=== PATIENT | male | born 1940 | race Caucasian/White ===

== ENCOUNTER 2020-09-28 14:17 | Outpatient (CLI) | payer MEDICARE, MEDICAID, SELFPAY ==
--- NOTE | ~2020-09-28 | CT_ITS ---
EXAMINATION: CT brain wo con DATE: 09/28/2020 14:58 INDICATION: Cerebrovascular accident follow-up TECHNIQUE: Computed tomography (CT) of the head was performed without intravenous contrast. The mA wa s adjusted according to patient size. Iterative reconstruction technique was employed. Exam dose: 60 5.33 mGy-cm total exam DLP. COMPARISON: 12/13/2018 CT brain FINDINGS: There is very prominent calcified cerebral atherosclerosis including heavily calcified bila teral vertebral arteries, basilar artery calcification and prominent carotid siphon and supraclinoid internal carotid artery calcifications. Large chronic right occipital cerebrovascular accident. There are bilateral chronic thalamic and basal ganglia lacunar infarcts. There is nonspecific promine nt patchy diminished attenuation of the subcortical and periventricular cerebral white matter, likely due to chronic small vessel ischemic changes. No intracranial mass lesion or hemorrhage or recent cerebrovascular accident is detected. There is no midline shift or mass effect. No subdural or epidural hematoma. There is central and cortical cerebral and cerebellar atrophy. No fracture or bone destruction of the cranial vault. Included paranasal sinuses and mastoid air cells are normally developed and aerated. IMPRESSION: Very prominent cerebral atherosclerosis and multiple bilateral chronic lacunar infarcts of the thalami/basal ganglia Reviewed, dictated and finalized at [facility]. Reviewed, dictated and finalized at location B. N BANDER IMPRESSION: Very prominent cerebral atherosclerosis and multiple bilateral chr onic lacunar infarcts of the thalami/basal ganglia
== END 2020-09-28 14:18 | disposition home or self-care (01) ==
PROVIDERS: PCP Family Medicine; Visit Provider Family Medicine
DX: I63.9 Cerebral infarction, unspecified (principal)
CPT/HCPCS: 70450

== ENCOUNTER 2021-01-21 05:03 | Emergency (ER) | payer MEDICARE, MEDICAID, SELFPAY ==
--- NOTE | ~2021-01-21 | CT_ITS ---
EXAMINATION: CT brain wo con EXAM DATE: 01/21/2021 06:02 INDICATION: Fall, head injury. TECHNIQUE: Spiral CT of the head was performed without contrast. Axial, coronal and sagittal images were reviewed. The dose-length product (DLP) for this examination was 605.33 mGy-cm. The exposure w as tailored according to patient size, and iterative reconstruction (ASIR) was used as additional dos e reduction technique. Comparison is made to prior examination from 09/28/2020. FINDINGS: There is moderate-sized old right occipital lobe infarction. There is no acute intraparench ymal hemorrhage. No evidence of intraparenchymal brain mass lesion. No evidence of acute infarction . Please note that initial head CT has limited sensitivity for small or acute infarctions. There is moderate to severe periventricular and subcortical hypodensity, nonspecific but probably related to s mall vessel ischemic disease. There is moderate prominence of the sulci and ventricles related to c erebral atrophy. There is extensive intracranial carotid arteriosclerosis. There are no extra-axia l collections. There is no mass effect or midline shift. Patient has had bilateral ocular lens surg lawrence. Small right frontal scalp contusion and probably laceration. The visualized sinuses and mastoid air cells are well aerated. IMPRESSION: 1. No acute intracranial findings. 2. Chronic age related findings. 3. Moderate size old right occipital lobe infarction. Reviewed, dictated and finalized at location A.
--- NOTE | ~2021-01-21 | CT_ITS ---
EXAMINATION: CT cervical spine wo [facility] EXAM DATE: 01/21/2021 06:02 INDICATION: Fall, head injury. TECHNIQUE: Spiral CT of the cervical spine was performed without contrast. Axial images were reviewe d. Coronal and sagittal reformatted images were also reviewed. The dose-length product (DLP) for thi s examination was 242.31 mGy-cm. The exposure was tailored according to patient size (auto mA exposu re control), and iterative reconstruction (ASIR) was used as additional dose reduction technique. Com parison is made to prior examination from 12/13/2018. FINDINGS: There is no evidence of acute cervical fracture. The odontoid process is intact. Pre-dens space is normal. Prevertebral soft tissue is normal. There are no soft tissue abnormalities identi fied. There is no disc space widening or traumatic vertebral body subluxation suspected. There is 2 mm anterolisthesis C7 on T1, was present on prior study. Moderate to severe loss of the C5-6 disc he ight. Overall moderate cervical arthropathy. A detailed level by level evaluation of spondylosis can be added as addendum if requested. IMPRESSION: 1. No acute cervical fracture. Reviewed, dictated and finalized at location A.
--- NOTE | ~2021-01-21 | XR_ITS ---
EXAMINATION: XR elbow LT min 3V EXAM DATE: 01/21/2021 06:22 INDICATION: Initial encounter following injury, with pain of the left elbow. TECHNIQUE: Left elbow frontal, lateral with flexion, and oblique projections obtained and reviewed. E xam limited from patient positioning. There is no prior study for comparison. FINDINGS: Left elbow anterior humeral line intact. There is mild primary osteoarthritis. No acute fractures or dislocations. Brachial arterial sclerosis and tortuosity. Can't evaluate for joint effus ion without true lateral projection. IMPRESSION: 1. No acute left elbow findings. 2. Mild to moderate osteoarthritis. Reviewed, dictated and finalized at location A.
--- NOTE | ~2021-01-21 | XR_ITS ---
EXAMINATION: XR chest 1V EXAM DATE: 01/21/2021 06:22 INDICATION: Fall. TECHNIQUE: Portable AP frontal chest x-ray was obtained. Comparison is made to prior examination from 09/06/2015. FINDINGS: Patchy bibasilar atelectasis or pneumonia. There are no pleural effusions. The cardiomedia stinal silhouette is prominent but magnified on this AP technique. There is aortic arteriosclerosis. There are bony degenerative changes. Chronic left hemidiaphragm elevation which could indicate paraly sis. This could be evaluated with a fluoroscopy-guided sniff test if indicated clinically. IMPRESSION: 1. Patchy bibasilar atelectasis or pneumonia. 2. Chronic left hemidiaphragm elevation, possible paralysis. Reviewed, dictated and finalized at location A.
--- NOTE | ~2021-01-21 | XR_ITS ---
EXAMINATION: XR pelvis 1-2V EXAM DATE: 01/21/2021 06:22 INDICATION: Initial encounter following injury, with pain of the pelvis. TECHNIQUE: Pelvis frontal projection(s) obtained and reviewed. There is no prior study for compariso n. FINDINGS: There is moderate symmetric bilateral hip primary osteoarthritis. Moderate amount of scatte red arteriosclerotic disease. There are no acute fractures or dislocations identified. There is no s ubcutaneous gas. There are no radiopaque foreign bodies. IMPRESSION: 1. Pelvic x-ray exam without acute osseous findings. 2. Moderate hip osteoarthritis. Reviewed, dictated and finalized at location A.
[2021-01-21 05:07] VITALS: BP 131/75; PULSE 80; RESP 20; TEMP 36.9; O2SAT 98
--- NOTE | 2021-01-21 05:21 | ED.FALL ---
HPI - Fall General Chief Complaint: Fall Stated Complaint: fall Source: RN notes reviewed History of Present Illness HPI Narrative: Patient presents to emergency department from [facility] for a fall. The patient was found down on the floor in the [facility] patient does not recall specifically how he fell. Per EMS the patient is a Gabriele lift did and is nonambulatory at baseline patient does have a history of dementia. Patient has a laceration over his right eyebrow as well as skin tear over the left elbow patient denies any headache chest pain, shortness of breath abdominal pain nausea vomiting or any other symptoms Related Data Allergies Allergy/AdvReac Type Severity Reaction Status Date / Time No Known Allergies Allergy Verified 01/21/21 05:13 Review of Systems Review of Systems: Narrative: Gen.: Denies fevers or chills Eyes: Denies eye pain or visual change ENT: Denies congestion Respiratory: Denies shortness of breath CV: Denies chest pain GI: Denies abdominal pain nausea, emesis Musculoskeletal: Denies back pain or muscle pain Neuro: Denies numbness, tingling, weakness or focal weakness Skin: See HPI Except as documented, all other systems reviewed and negative [facility] Past Medical History Medical History (Updated 01/21/21 @ 06:55 by Israel Montez DO) CVA (cerebral vascular accident) Dementia Social History Social History Smoking status: Never smoker Alcohol intake: never Gender identity (if verbalized by the patient): Male Exam Narrative: Exam Narrative: APPEARANCE: No acute distress, nontoxic, resting in bed EYES: EOMI, PERRL HEENT: Normocephalic, there is a 3 cm laceration over the right forehead just above the eyebrow that is linear and deep with mild venous bleeding no foreign bodies nares patent or mucosa moist RESPIRATORY: No respiratory distress Clear to auscultation bilaterally with no rhonchi wheezing or rales. CARDIOVASCULAR: Regular rate and rhythm without murmurs rubs or gallops. ABDOMINAL: Soft, nontender, nondistended, no rebound or guarding Back: No midline thoracic or lumbar tenderness to palpation MUSCULOSKELETAl: Moves all extremities. No clubbing, cyanosis or edema. No tenderness of the bilateral upper and lower extremities, moves all extremities without pain NEURO: Awake and alert x2. Following commands, speech normal, no focal deficits SKIN:: Warm, dry. No rashes lesions. Superficial skin tear over the left lateral proximal forearm no bleeding or sign of infection PSYCHIATRIC: Normal affect/mood, Course Course Emergency Course: Reviewed old records and patient with tetanus shot in 2013 Vital Signs Vital signs: Vital Signs Temperature 98.4 F 01/21/21 05:07 Pulse Rate 80 01/21/21 05:07 Respiratory Rate 20 01/21/21 05:07 Blood Pressure 131/75 01/21/21 05:07 Pulse Oximetry 98 01/21/21 05:07 Temperature 98.4 F 01/21/21 05:07 Pulse Rate 80 01/21/21 05:07 Respiratory Rate 20 01/21/21 05:07 Blood Pressure 131/75 01/21/21 05:07 Pulse Oximetry 98 01/21/21 05:07 Procedures Laceration Laceration 1: ====== Skin Level ====== ====== Subcutaneous Layer ====== ====== Muscle Layer ====== ====== Tendon Layer ====== Dressing: Verbal consent was obtained prior to the procedure. The wound was cleaned with Betadine and irrigated with copious amounts of normal saline. Lidocaine 1% with epinephrine was used for anesthesia. Wound was explored is no foreign body seen. The wound was then closed with 4 5-0 nylon in simple interrupted fashion. A sterile dressing was applied following the procedure. Patient tolerated the procedure well MDM - Fall Imaging Data Attestation: I personally reviewed and interpreted this imaging study as follows: My impression: Chest x-ray shows no acute process, Pelvic x-ray shows no acute fracture Elbow x-ray shows no acute fracture Radiologist'
[2021-01-21] MEDS: LIDO 1%/EPINEPHRINE 1:100,000 20 ML VIAL INFILTRATE (06:02)
--- NOTE | 2021-01-21 07:06 | PC.NURSE ---
Report called to [facility]. Netta.
--- NOTE | 2021-01-21 07:07 | PC.NURSE ---
called [facility] to request transport. Accepted and truck is on the way from [place].
[2021-01-21 07:47] VITALS: BP 154/78; PULSE 74; RESP 14; O2SAT 98
== END 2021-01-21 07:52 ==
PROVIDERS: Emergency Provider Emergency Medicine; PCP Family Medicine
DX: S01.111A Laceration without foreign body of right eyelid and periocular area, initial encounter (principal); S51.012A Laceration without foreign body of left elbow, initial encounter; F03.90 Unspecified dementia, unspecified severity, without behavioral disturbance, psychotic disturbance, mood disturbance, and anxiety; Z86.73 Personal history of transient ischemic attack (TIA), and cerebral infarction without residual deficits; R91.8 Other nonspecific abnormal finding of lung field; M19.022 Primary osteoarthritis, left elbow; M16.0 Bilateral primary osteoarthritis of hip; W06.XXXA Fall from bed, initial encounter
CPT/HCPCS: 12013; 70450; 71045; 72125; 72170; 73080; 99284

== ENCOUNTER 2021-03-10 16:37 | Inpatient (IN) | payer MEDICARE, MEDICAID, SELFPAY ==
--- NOTE | ~2021-03-10 | XR_ITS ---
XR chest 1V portable 03/10/2021 17:41 Indication: Fever and rash. History of CVA. Procedure: AP portable chest Comparison: 01/21/2021 Findings: Elevated left diaphragm. Left basilar atelectasis/scarring unchanged. There is atherosclero sis. Right lung clear. No significant effusion or pneumothorax. Impression: 1: Unchanged left basilar atelectasis/scarring. Reviewed, dictated and finalized at location A. Impression: 1: Unchanged left basilar atelectasis/scarring.
--- NOTE | ~2021-03-10 | XR_ITS ---
XR finger 4th LT min 2V 03/10/2021 20:44 INDICATION: Infection fourth finger PROCEDURE: 3 views left fourth finger COMPARISON: No prior studies for comparison. FINDINGS: Fracture, dislocation or subluxation is not identified. Osteopenia. There is mild soft tiss ue swelling overlying the distal phalanx. No foreign bodies are identified. IMPRESSION: 1: NO ACUTE BONE OR JOINT ABNORMALITY IDENTIFIED. Reviewed, dictated and finalized at location A.
[2021-03-10 16:41] VITALS: BP 136/64; PULSE 93; RESP 18; TEMP 36.7; O2SAT 100
[2021-03-10 18:20] LABS: Basophils Percent Auto 0.2 % (0.2-1.2); Eosinophils Absolute Auto 0.8 K/mm3 (0-0.3); Eosinophils Percent Auto 4.8 % (0-4.4); Hematocrit 44.6 % (42.0-52.0); Hemoglobin 14.2 g/dL (14.0-18.0); Immature Granulocyte Absolute 0.16 K/mm3 (0.00-0.031); Lymphocytes Absolute Auto 2.71 K/mm3 (0.9-3.2); Lymphocytes Percent Auto 16.6 % (18.3-44.2); Mean Corpuscular HGB Conc 31.8 g/dl (32-36); Mean Corpuscular Hemoglobin 30.8 pg (26-34); Mean Corpuscular Volume 96.7 fl (80-100); Mean Platelet Volume 10.7 fl (7.4-10.4); Monocytes Percent Auto 5.9 % (2.6-8.5); Neutrophils Absolute Auto 11.7 K/mm3 (1.3-6.7); Neutrophils Percent Auto 71.5 % (45.5-73.1); Platelet Count Result 251 k/mm3 (150-375); Red Blood Count 4.61 M/mm3 (4.6-6.20); Red Cell Distribution Width 15.2 % (11.5-14.5); White Blood Count 16.4 K/mm3 (4.5-10.0)
[2021-03-10 18:34] LABS: Anion Gap 5 mmol/L (8-16); Blood Urea Nitrogen 28 mg/dL (9-20); CRP 2.7 mg/dL (<1.0); Calcium 9.1 mg/dL (8.4-10.2); Carbon Dioxide 26 mmol/L (22-30); Chloride 113 mmol/L (98-107); Estimated CRCL calculation 57 ml/min; Estimated Glomerular Filt Rate > 60; Glucose 85 mg/dL (75-110); Potassium 4.4 mmol/L (3.4-5.0); Sodium 144 mmol/L (137-145)
--- NOTE | 2021-03-10 19:35 | ED.SKABFB ---
HPI - Skin/Abscess/Foreign Bdy General Chief complaint: Skin/Abscess/Foreign Body Stated complaint: RASH X 1 WEEK Time Seen by Provider: 03/10/21 16:50 Source: patient and RN notes reviewed Mode of arrival: ambulatory Limitations: no limitations History of Present Illness HPI narrative: Patient 80-year-old male who presents from intermediate at baseline mentation which is ANO x1 with rash which was noticed today at the intermediate. Unsure as to the etiology of the rash discussion was made with the intermediate physician who denies any new medications or similar occurrence in the past his nurse practitioner had seen the patient at the intermediate today and sent the patient in for further evaluation. Patient has not been ill per physician to his knowledge. Related Data Allergies Allergy/AdvReac Type Severity Reaction Status Date / Time No Known Allergies Allergy Verified 01/21/21 05:13 Review of Systems Review of Systems: ROS unobtainable: Yes unobtainable due to medical condition PMFSH Past Medical History Medical History CVA (cerebral vascular accident) Dementia Social History Social History Smoking status: Never smoker Alcohol intake: never Gender identity (if verbalized by the patient): Male Exam Narrative: Exam Narrative: GENERAL: Chronically ill-appearing, well-nourished, and in no acute distress. HEAD: Normocephalic, atraumatic. EYES: PERRLA and EOMI. ENT: Nares clear, no rhinorrhea or epistaxis. Mucous membranes moist. CHEST: Clear to auscultation. No respiratory distress. No wheezes rales or rhonchi HEART: Regular rate and rhythm. No murmur heard. Normal peripheral pulses. ABDOMEN: Soft, nontender, nondistended EXTREMITIES: Normal range of motion. No edema. SKIN: Warm, dry, patient with diffuse macular rash some of which have pustules consistent with folliculitis patient's finger left middle has paronychia with purulence. NEURO: Cranial nerves II through XII grossly intact. alert and oriented to self. PSYCH: Normal mood and affect. Course R D ENGINEER/PA Physician Supervision Patient aware of case findings treatment plan and diagnosis Consultations Consultation #1: Discussed case with hospitalist Dr. Villalobos and who is agreed to accept the patient Date: 03/10/21 Time: 20:41 Vital Signs Vital signs: Vital Signs Temperature 98.0 F 03/10/21 16:41 Pulse Rate 93 03/10/21 16:41 Respiratory Rate 18 03/10/21 16:41 Blood Pressure 136/64 03/10/21 16:41 Pulse Oximetry 100 03/10/21 16:41 Temperature 98.0 F 03/10/21 16:41 Pulse Rate 85 03/10/21 19:53 Respiratory Rate 20 03/10/21 19:53 Blood Pressure 129/64 03/10/21 19:53 Pulse Oximetry 97 03/10/21 19:53 Procedures Abscess I/D upper extremity: Date of Incision: 03/10/21 Time of Incision: 20:40 Side (if applicable): left Local Anesthetic: none Amount of fluid expressed (mL): 2 Irrigation: Yes Packing used?: none I&D Results: Pus and Blood Abcess I&D Additional Comments: Single straight incision with 18-gauge needle used to I&D left ring finger abscess other: Date of Incision: 03/10/21 Time of Incision: 20:40 Side (if applicable): left Packing used?: none I&D Results: Pus Abcess I&D Additional Comments: Single straight incision with 18-gauge needle used to drain left middle finger abscess MDM - Skin/Abscess/Foreign Bdy MDM Narrative Medical decision making narrative: Patient presented with multiple wounds which were [id number] with nonspecific rash could be drug related or potentially folliculitis or secondarily infected secondary to what appears to be staph infections. Patient had cultures obtained to include blood and wound culture. Patient is nontoxic afebrile antibiotics were administered. Lab Data Result diagrams
[2021-03-10 19:53] VITALS: BP 129/64; PULSE 85; RESP 20; O2SAT 97
[2021-03-10 20:18] LABS: Add Urine Microscopic? YES; Appearance Urine Clear (Clear); Bacteria Urine Trace /hpf; Bilirubin Urine Negative (Negative); Blood Urine Negative (Negative); Color Urine Yellow (Yellow); Glucose Urine UA Negative (Negative); Ketones Urine Negative (Negative); Leukocyte Esterase Ur Negative LEU/UL (Negative); Mucus Urine Rare /lpf; Nitrate Urine Negative (Negative); Protein Urine Negative (Negative); Specific Grav Ur 1.023 (1.001-1.035); Squamous Epithelial Cell Urine Rare /hpf (Few); Urobilinogen Urine Negative mg/dL (<2.0); WBC Urine 0-3 /hpf
--- NOTE | 2021-03-10 21:02 | PC.NURSE ---
BC x 2 obtained. Lactic acid obtained and sent to lab, along c E-swab collected by GUICHO Bravo. Doxycycline, previously charted as infused, started at this time. infusing to IV in [facility].
[2021-03-10 21:19] LABS: Lactic Acid Reflex 1.5 mmol/L (0.7-2.1)
[2021-03-10 21:32] VITALS: BP 116/73
[2021-03-10] MEDS: SODIUM CHLORIDE 0.9% IV 1,000 ML 999 ML IV CONT (21:32)
--- NOTE | 2021-03-10 22:42 | PM.IMHP ---
H&P: HPI History of Present Illness Date/Time: 03/10/21 22:42 Chief Complaint: Rash Narrative: 80-year-old male with past medical history of dementia who presented to the ER from [facility] via EMS due to rash for 1 week. custodial staff states the patient has not had any new medications. The patient has a generalized pruritic rash. He also had associated paronychia of the 3rd and 4th digit of the left hand. Patient's body rash extends throughout the groin, chest, back and scalp. There is no associated purulence or events of folliculitis. The patient has been afebrile. Patient is alert oriented only to self and cannot provide any additional history. Review of Systems Review of Systems: ROS unobtainable: Yes unobtainable due to medical condition and unobtainable due to mental status PMFSH Past Medical History Medical History (Updated 03/11/21 @ 01:53 by Marika Villalobos DO) BPH (benign prostatic hyperplasia) COPD (chronic obstructive pulmonary disease) CVA (cerebral vascular accident) Dementia Hyperlipidemia Surgical History Surgical History (Updated 03/10/21 @ 22:47 by Marika Villalobos DO) H/O inguinal hernia repair History of colonoscopy with polypectomy Family History Family History Mother Diabetes mellitus Heart disease Sibling Diabetes mellitus Heart disease Father Cancer Social History Social History (Updated 03/11/21 @ 01:48 by Marika Villalobos DO) Social History: Patient resides at [facility]. His brother Israel is his healthcare power of tobacco dipper. Code status is DNR with state form on chart. Smoking status: Never smoker Alcohol intake: unknown Substance use: unknown Substance use type: does not use Gender identity (if verbalized by the patient): Male Spiritual care concerns: No Meds Home Medications and Allergies Home Medications Medication Instructions Recorded Confirmed Type hydrocodone 5 mg-acetaminophen 325 1 tablet PO BID #60 tablet 09/20/20 03/10/21 Rx mg tablet amino ac-protein hydr-whey pro 1 ea PO BID 03/10/21 03/10/21 History [ProSource] ascorbic acid (vitamin C) 1 g PO DAILY 03/10/21 03/10/21 History budesonide 0.25 mg INHALATION BID 03/10/21 03/10/21 History calcium carbonate 500 mg PO BID 03/10/21 03/10/21 History clopidogrel 75 mg PO DAILY 03/10/21 03/10/21 History finasteride 5 mg PO DAILY 03/10/21 03/10/21 History megestrol 625 mg PO DAILY 03/10/21 03/10/21 History multivitamin with minerals [Daily 1 tablet PO DAILY 03/10/21 03/10/21 History Multivitamin-Minerals] polysaccharide iron complex 150 mg PO BID 03/10/21 03/10/21 History [Poly-Iron] rivaroxaban [Xarelto] 2.5 mg PO DAILY 03/10/21 03/10/21 History tamsulosin 0.4 mg PO DAILY 03/10/21 03/10/21 History Allergies Allergy/AdvReac Type Severity Reaction Status Date / Time No Known Allergies Allergy Verified 03/10/21 23:29 Vital Signs Vital Signs - 24 hr 03/10/21 16:41 03/10/21 19:53 03/10/21 21:32 Temperature 98.0 F Pulse Rate 93 85 Respiratory Rate 18 20 Blood Pressure 136/64 129/64 116/73 Pulse Oximetry 100 97 Exam Narrative: Exam Narrative: PHYSICAL EXAM: WEIGHT 79.5 kg BMI 26.6 General: Well-developed well-nourished, restless HEENT: Mucous membranes are tacky, tongue is erythematous with a small pustule to the right tip of the tongue, pupils are equal and reactive, edentulous Respiratory: Decreased breath sounds bilaterally, no increased work of breathing Cardiovascular: Regular rate, regular rhythm, 2+ bilateral radial pedal pulses Gastrointestinal: Soft, nontender, nondistended, positive bowel Skin: Generalized macular papular rash extending from the mid thigh into the groin, buttocks pack chest, arms and scalp, rash is pruritic and erythematous, no pustules or exudate, the lower extremities below the knee are for the most part spared,
[2021-03-10 22:48] VITALS: BP 131/77; PULSE 97; RESP 16; O2SAT 98
--- NOTE | 2021-03-10 22:58 | ADMGEN ---
This patient, Aguila Maria, was admitted to 2 Medical Room [facility]- @ [id number]. Patient/family oriented to hospital policies and general routines including ID bracelet, bed and alarms, visiting hours, pain management, procedures, bathroom and other care routines, personal items, smoking policy, room service/diet, and visiting hours. Information on how to activate the Rapid Response Team has been discussed. Patient/Family are encouraged to report perceived risks to care and to ask questions if they do not understand what they are told or what they should do.
[2021-03-10] MEDS: FAMOTIDINE 20 MG/2 ML VIAL IV PUSH (23:01)
[2021-03-10] MEDS: LACTATED RINGERS 1,000 ML 75 ML IV CONT (23:01)
[2021-03-11] VITALS (11 sets, daily range): BP systolic 108–128; BP diastolic 51–83; PULSE 66–95; RESP 14–20; TEMP 36.6–37.1; O2SAT 96–100; BMI 26.6
[2021-03-11] MEDS: diphenhydrAMINE HCl INJ 50 MG/ML VIAL IV PUSH (02:30)
[2021-03-11 05:34] LABS: Basophils Percent Auto 0.3 % (0.2-1.2); Eosinophils Absolute Auto 0.5 K/mm3 (0-0.3); Hematocrit 40.3 % (42.0-52.0); Hemoglobin 12.9 g/dL (14.0-18.0); Immature Granulocyte Absolute 0.15 K/mm3 (0.00-0.031); Immature Granulocyte Percent A 1.2 % (0-0.5); Lymphocytes Absolute Auto 1.11 K/mm3 (0.9-3.2); Lymphocytes Percent Auto 8.7 % (18.3-44.2); Mean Corpuscular Hemoglobin 30.5 pg (26-34); Mean Corpuscular Volume 95.3 fl (80-100); Mean Platelet Volume 11.2 fl (7.4-10.4); Monocytes Absolute Auto 0.3 K/mm3 (0.1-0.6); Neutrophils Absolute Auto 10.7 K/mm3 (1.3-6.7); Neutrophils Percent Auto 83.8 % (45.5-73.1); Platelet Count Result 214 k/mm3 (150-375); Red Blood Count 4.23 M/mm3 (4.6-6.20); Red Cell Distribution Width 15.1 % (11.5-14.5); White Blood Count 12.8 K/mm3 (4.5-10.0)
[2021-03-11 08:35] LABS: Alanine Aminotransferase 18 U/L (4-50); Albumin Level 2.8 g/dL (3.5-5.1); Alkaline Phosphatase 41 U/L (38-126); Anion Gap 4 mmol/L (8-16); Aspartate Amino Transferase 28 U/L (17-59); Bilirubin,Total 0.8 mg/dL (0.2-1.3); Blood Urea Nitrogen 23 mg/dL (9-20); Calcium 8.7 mg/dL (8.4-10.2); Carbon Dioxide 20 mmol/L (22-30); Chloride 119 mmol/L (98-107); Estimated CRCL calculation 63 ml/min; Estimated Glomerular Filt Rate > 60; Glucose 107 mg/dL (75-110); Potassium 4.8 mmol/L (3.4-5.0); Sodium 143 mmol/L (137-145)
[2021-03-11] MEDS: THERAPEUTIC MULTIVITAMINS/MINERALS TAB (*BKC) 1 TABLET PO (09:04)
[2021-03-11] MEDS: CALCIUM CARBONATE (OSCAL) 500 MG TABLET PO ×2 (09:04→17:59)
[2021-03-11] MEDS: TAMSULOSIN HCL 0.4 MG CAPSULE PO (09:04)
[2021-03-11] MEDS: CLOPIDOGREL BISULFATE 75 MG TABLET PO (09:04)
[2021-03-11] MEDS: POLYSACCHARIDE IRON COMPLEX 150 MG CAPSULE PO ×2 (09:04→18:00)
[2021-03-11] MEDS: RIVAROXABAN 2.5 MG TABLET PO ×2 (09:05→18:00)
[2021-03-11] MEDS: predniSONE 20 MG TABLET 40 MG PO (09:05)
[2021-03-11] MEDS: FINASTERIDE 5 MG TABLET PO (09:05)
[2021-03-11] MEDS: ASCORBIC ACID 500 MG TABLET 1000 MG PO (09:05)
[2021-03-11] MEDS: HYDROcodone/acetaminophen (*CRX) 5-325 MG TABLET 1 TAB PO ×2 (09:05→17:59)
[2021-03-11] MEDS: BUDESONIDE RESPULE NEB 0.5 MG/2 ML AMP 0.25 MG INHALATION ×2 (10:06→20:13)
[2021-03-11] MEDS: FAMOTIDINE 20 MG/2 ML VIAL IV PUSH ×2 (13:18→21:06)
[2021-03-11] MEDS: LACTATED RINGERS 1,000 ML 75 ML IV CONT (14:37)
--- NOTE | 2021-03-11 15:30 | PM.IMPN ---
Progress Note: A&P Assessment and Plan (1) Rash and nonspecific skin eruption: Code(s): R21 - Rash and other nonspecific skin eruption Status: Acute Assessment and Plan: Not quite extensive enough to classify as erythroderma. Contact or atopic dermatitis vs systemic issue (staph infection, psoriasis) vs drug reaction Continue with prednisone, diphenhydramine, famotidine Continue doxycycline as leukocytosis is improving. Await C/s from left 3rd finger, palm, blood. (2) Skin pustule: Code(s): L08.9 - Local infection of the skin and subcutaneous tissue, unspecified Status: Acute Assessment and Plan: One on each palm Worrisome for systemic process (3) Paronychia of finger: Qualifiers: Laterality: left Qualified Code(s): L03.012 - Cellulitis of left finger Code(s): L03.019 - Cellulitis of unspecified finger Status: Acute Assessment and Plan: Improving But possible entry site for infection (4) Dementia: Qualifiers: Dementia type: unspecified type Dementia behavioral disturbance: without behavioral disturbance Qualified Code(s): F03.90 - Unspecified dementia without behavioral disturbance Code(s): F03.90 - Unspecified dementia without behavioral disturbance Status: Acute Assessment and Plan: Likely at baseline mental status Subjective Date/time seen: 03/11/21 15:30 Interval history: 03/11: Admitted 03/10 for itching, generalized rash. Patient is unable to provide hx. Denies any itching. Ate well. Review of Systems Review of Systems: Narrative: Denied pain. Otherwise not obtainable due to mental status. Exam Narrative: Exam Narrative: PHYSICAL EXAM: WEIGHT 79.5 kg BMI 26.6 General: Well-developed well-nourished in NAD HEENT: Mucous membranes are moist, tongue is erythematous with a small pustule to the right tip of the tongue, pupils are equal and reactive, edentulous Neck: No adenopathy or thyromegaly Respiratory: Decreased breath sounds bilaterally, no increased work of breathing Cardiovascular: Regular rate, regular rhythm, 2+ bilateral radial pedal pulses Gastrointestinal: Soft, nontender, nondistended, positive bowel Skin: Generalized maculopapular rash extending from the mid thigh into the groin, buttocks, back, chest, arms, and scalp, erythematous with some scaling, one pustule on each palm, the lower extremities below the knee are for the most part spared, palms are spared, soles are spared Musculoskeletal: Paronychia of the 3rd and 4th finger of the left hand on the medial aspect of both fingers with a small amount of associated bruising, 3 second cap refill Neurological: CN 3-12 intact to inspection, tone and strength symmetric Psychiatric: A/O to person only (did not know he was in hospital or what year it was), pleasant and cooperative : Normal circumcised external male genitalia Hematologic/lymphatic: No petechiae, no anterior cervical or submandibular lymphadenopathy Objective Data Vital Signs Vital Signs: Vital Signs - 24 hr 03/10/21 16:41 03/10/21 19:53 03/10/21 21:32 Temperature 98.0 F Pulse Rate 93 85 Respiratory Rate 18 20 Blood Pressure 136/64 129/64 116/73 Pulse Oximetry 100 97 03/10/21 22:48 03/11/21 00:00 03/11/21 05:00 Temperature 97.8 F 97.9 F Pulse Rate 97 95 66 Respiratory Rate 16 18 16 Blood Pressure 131/77 108/54 L 116/69 Pulse Oximetry 98 98 98 03/11/21 08:00 03/11/21 10:10 03/11/21 10:12 Temperature 98.0 F Pulse Rate 89 85 Respiratory Rate 16 20 Blood Pressure 124/64 Pulse Oximetry 100 98 03/11/21 10:16 Temperature Pulse Rate 90 Respiratory Rate 20 Blood Pressure Pulse Oximetry Intake/Output Intake/Output: Intake & Output 03/08/21 03/09/21 03/10/21 03/11/21 23:59 23:59 23:59 23:59 Intake Total 100 1390 Output Total 100 Balance 0 1390 Meds/Results Medications: Active Medications Generic Name Dose Route St
[2021-03-11] MEDS: MEGESTROL ACETATE (*CHEMO) ORAL SUSP 40 MG/ML SYR 625 MG PO (17:59)
[2021-03-12] VITALS (12 sets, daily range): BP systolic 107–125; BP diastolic 42–89; PULSE 72–111; RESP 16–20; TEMP 36.1–37.1; O2SAT 93–100
[2021-03-12] MEDS: LACTATED RINGERS 1,000 ML 75 ML IV CONT ×2 (04:36→17:29)
[2021-03-12 05:04] LABS: Hematocrit 36.1 % (42.0-52.0); Hemoglobin 11.8 g/dL (14.0-18.0); Mean Corpuscular HGB Conc 32.7 g/dl (32-36); Mean Corpuscular Hemoglobin 30.7 pg (26-34); Platelet Count Result 236 k/mm3 (150-375); Red Blood Count 3.84 M/mm3 (4.6-6.20); Red Cell Distribution Width 14.9 % (11.5-14.5); White Blood Count 13.4 K/mm3 (4.5-10.0)
[2021-03-12 05:43] LABS: Anion Gap 2 mmol/L (8-16); Blood Urea Nitrogen 22 mg/dL (9-20); CRP 2.2 mg/dL (<1.0); Calcium 8.3 mg/dL (8.4-10.2); Carbon Dioxide 23 mmol/L (22-30); Chloride 115 mmol/L (98-107); Estimated CRCL calculation 57 ml/min; Estimated Glomerular Filt Rate > 60; Glucose 105 mg/dL (75-110); Potassium 3.8 mmol/L (3.4-5.0); Sodium 140 mmol/L (137-145)
[2021-03-12] MEDS: THERAPEUTIC MULTIVITAMINS/MINERALS TAB (*BKC) 1 TABLET PO (09:03)
[2021-03-12] MEDS: predniSONE 20 MG TABLET 40 MG PO (09:03)
[2021-03-12] MEDS: FINASTERIDE 5 MG TABLET PO (09:03)
[2021-03-12] MEDS: CALCIUM CARBONATE (OSCAL) 500 MG TABLET PO ×2 (09:03→17:29)
[2021-03-12] MEDS: POLYSACCHARIDE IRON COMPLEX 150 MG CAPSULE PO ×2 (09:03→17:29)
[2021-03-12] MEDS: ASCORBIC ACID 500 MG TABLET 1000 MG PO (09:03)
[2021-03-12] MEDS: CLOPIDOGREL BISULFATE 75 MG TABLET PO (09:04)
[2021-03-12] MEDS: FAMOTIDINE 20 MG/2 ML VIAL IV PUSH ×2 (09:04→19:54)
[2021-03-12] MEDS: RIVAROXABAN 2.5 MG TABLET PO ×2 (09:04→17:30)
[2021-03-12] MEDS: MEGESTROL ACETATE (*CHEMO) ORAL SUSP 40 MG/ML SYR 625 MG PO (09:04)
[2021-03-12] MEDS: TAMSULOSIN HCL 0.4 MG CAPSULE PO (09:05)
[2021-03-12] MEDS: HYDROcodone/acetaminophen (*CRX) 5-325 MG TABLET 1 TAB PO ×2 (09:16→17:29)
[2021-03-12] MEDS: BUDESONIDE RESPULE NEB 0.5 MG/2 ML AMP 0.25 MG INHALATION ×2 (09:28→20:08)
--- NOTE | 2021-03-12 15:21 | PM.IMPN ---
Progress Note: A&P Assessment and Plan (1) Rash and nonspecific skin eruption: Code(s): R21 - Rash and other nonspecific skin eruption Status: Acute Assessment and Plan: Erythroderma is usually more extensive Contact or atopic dermatitis vs systemic issue (staph infection, psoriasis) vs drug reaction Continue with prednisone, diphenhydramine, famotidine Continue doxycycline as leukocytosis is improving. Staph aureus growing from finger culture GPCs on gram stain of palm Blood culture negative thus far Continues to improve slowly (2) Skin pustule: Code(s): L08.9 - Local infection of the skin and subcutaneous tissue, unspecified Status: Acute Assessment and Plan: One on each palm Worrisome for systemic process 03/11 left palm pustule incised and sent for gram stain and culture (3) Paronychia of finger: Qualifiers: Laterality: left Qualified Code(s): L03.012 - Cellulitis of left finger Code(s): L03.019 - Cellulitis of unspecified finger Status: Acute Assessment and Plan: Staph aureus in culture Sensitivities pending (4) Dementia: Qualifiers: Dementia type: unspecified type Dementia behavioral disturbance: without behavioral disturbance Qualified Code(s): F03.90 - Unspecified dementia without behavioral disturbance Code(s): F03.90 - Unspecified dementia without behavioral disturbance Status: Acute Assessment and Plan: Likely at baseline mental status Subjective Date/time seen: 03/12/21 15:21 Interval history: Admitted 03/10 for itching, generalized rash. Patient is unable to provide hx. 03/12: Denies any itching. Denied pain. Ate well. Review of Systems Review of Systems: ROS unobtainable: Yes unobtainable due to medical condition Exam Narrative: Exam Narrative: General: Well-developed well-nourished in NAD HEENT: Mucous membranes are moist, of the tongue, pupils are equal and reactive, edentulous Neck: No adenopathy or thyromegaly Respiratory: Decreased breath sounds bilaterally, no increased work of breathing Cardiovascular: Regular rate, regular rhythm, 2+ bilateral radial pedal pulses Gastrointestinal: Soft, nontender, nondistended, positive bowel Skin: Generalized maculopapular rash extending from the mid thigh into the groin, buttocks, back, chest, arms, and scalp, erythematous with some scaling, one pustule on right palm with resolving pustule left palm, the lower extremities below the knee are for the most part spared, palms are spared, soles are spared Musculoskeletal: Paronychia of the 3rd and 4th finger of the left hand on the medial aspect of both fingers with a small amount of associated bruising, 3 second cap refill Neurological: CN 3-12 intact to inspection, tone and strength symmetric Psychiatric: A/O to person only (did not know he was in hospital or what year it was), pleasant and cooperative Hematologic/lymphatic: No petechiae, no anterior cervical or submandibular lymphadenopathy Objective Data Vital Signs Vital Signs: Vital Signs - 24 hr 03/11/21 18:00 03/11/21 20:00 03/11/21 20:15 Temperature 98.8 F 98.7 F Pulse Rate 94 76 87 Respiratory Rate 16 16 20 Blood Pressure 117/83 112/51 L Pulse Oximetry 99 96 03/11/21 20:18 03/12/21 00:00 03/12/21 04:00 Temperature 98.5 F 98.7 F Pulse Rate 87 72 76 Respiratory Rate 16 18 Blood Pressure 123/57 L 108/52 L Pulse Oximetry 97 95 97 03/12/21 08:00 03/12/21 09:28 03/12/21 09:29 Temperature 96.9 F L Pulse Rate 75 80 Respiratory Rate 20 20 Blood Pressure 107/51 L Pulse Oximetry 95 97 03/12/21 09:36 03/12/21 12:00 Temperature 98 F Pulse Rate 76 74 Respiratory Rate 20 20 Blood Pressure 119/42 L Pulse Oximetry 99 Intake/Output Intake/Output: Intake & Output 03/09/21 03/10/21 03/11/21 03/12/21 23:59 23:59 23:59 23:59 Intake Total 100 2350 1440 Output Total 100 Balance 0 2350 1440 Me
[2021-03-13] VITALS (9 sets, daily range): BP systolic 92–118; BP diastolic 43–63; PULSE 65–87; RESP 16–20; TEMP 36.4–37; O2SAT 97–100
[2021-03-13] MEDS: diphenhydrAMINE HCl INJ 50 MG/ML VIAL IV PUSH ×2 (02:15→22:20)
[2021-03-13 05:20] LABS: Hematocrit 37.3 % (42.0-52.0); Mean Corpuscular HGB Conc 32.2 g/dl (32-36); Mean Corpuscular Hemoglobin 30.5 pg (26-34); Mean Corpuscular Volume 94.7 fl (80-100); Mean Platelet Volume 11.2 fl (7.4-10.4); Platelet Count Result 237 k/mm3 (150-375); Red Blood Count 3.94 M/mm3 (4.6-6.20); Red Cell Distribution Width 14.6 % (11.5-14.5); White Blood Count 11.5 K/mm3 (4.5-10.0)
[2021-03-13 05:36] LABS: Anion Gap 2 mmol/L (8-16); Blood Urea Nitrogen 22 mg/dL (9-20); CRP 1.4 mg/dL (<1.0); Calcium 8.3 mg/dL (8.4-10.2); Carbon Dioxide 24 mmol/L (22-30); Chloride 112 mmol/L (98-107); Estimated CRCL calculation 63 ml/min; Estimated Glomerular Filt Rate > 60; Glucose 84 mg/dL (75-110); Potassium 3.9 mmol/L (3.4-5.0); Sodium 138 mmol/L (137-145)
[2021-03-13] MEDS: BUDESONIDE RESPULE NEB 0.5 MG/2 ML AMP 0.25 MG INHALATION ×2 (08:45→20:36)
[2021-03-13] MEDS: ASCORBIC ACID 500 MG TABLET 1000 MG PO (08:51)
[2021-03-13] MEDS: TAMSULOSIN HCL 0.4 MG CAPSULE PO (08:51)
[2021-03-13] MEDS: predniSONE 20 MG TABLET 40 MG PO (08:51)
[2021-03-13] MEDS: POLYSACCHARIDE IRON COMPLEX 150 MG CAPSULE PO ×2 (08:51→16:14)
[2021-03-13] MEDS: MEGESTROL ACETATE (*CHEMO) ORAL SUSP 40 MG/ML SYR 625 MG PO (08:51)
[2021-03-13] MEDS: FAMOTIDINE 20 MG/2 ML VIAL IV PUSH ×2 (08:52→22:12)
[2021-03-13] MEDS: CLOPIDOGREL BISULFATE 75 MG TABLET PO (08:52)
[2021-03-13] MEDS: CALCIUM CARBONATE (OSCAL) 500 MG TABLET PO ×2 (08:52→16:14)
[2021-03-13] MEDS: RIVAROXABAN 2.5 MG TABLET PO ×2 (08:52→16:13)
[2021-03-13] MEDS: THERAPEUTIC MULTIVITAMINS/MINERALS TAB (*BKC) 1 TABLET PO (08:52)
[2021-03-13] MEDS: FINASTERIDE 5 MG TABLET PO (08:52)
[2021-03-13] MEDS: HYDROcodone/acetaminophen (*CRX) 5-325 MG TABLET 1 TAB PO (09:02)
--- NOTE | 2021-03-13 11:54 | PM.IMPN ---
Progress Note: A&P Assessment and Plan (1) Rash and nonspecific skin eruption: Code(s): R21 - Rash and other nonspecific skin eruption Status: Acute Assessment and Plan: Erythroderma is usually more extensive Contact or atopic dermatitis vs systemic issue (staph infection, psoriasis) vs drug reaction Continue with prednisone, diphenhydramine, famotidine Continue doxycycline as leukocytosis is improving. Staph aureus growing from finger culture GPCs on gram stain of palm Blood culture negative thus far Continues to improve slowly 03/13/21 11:54 Patient 80 y/o male chronically ill, dementia unable to provider any ROS or hx. patient has nonespecific skin eruption etiology is uncertain, wound culture is growing gram positive cocci sensitivities pending however patient being treated with doxycycline white counts are trending down, will culture is pending also patient is being treated with prednisone, Benadryl, and Pepcid, his overall clinical symptoms are improving. Will follow-up on wound culture sensitivity and further recommendation to follow (2) Skin pustule: Code(s): L08.9 - Local infection of the skin and subcutaneous tissue, unspecified Status: Acute Assessment and Plan: One on each palm Worrisome for systemic process 03/11 left palm pustule incised and sent for gram stain and culture still pending (3) Paronychia of finger: Qualifiers: Laterality: left Qualified Code(s): L03.012 - Cellulitis of left finger Code(s): L03.019 - Cellulitis of unspecified finger Status: Acute Assessment and Plan: Staph aureus in culture Sensitivities pending (4) Dementia: Qualifiers: Dementia type: unspecified type Dementia behavioral disturbance: without behavioral disturbance Qualified Code(s): F03.90 - Unspecified dementia without behavioral disturbance Code(s): F03.90 - Unspecified dementia without behavioral disturbance Status: Acute Assessment and Plan: Likely at baseline mental status Additional Plan Patient has a generalized skin eruption seems most consistent with contact dermatitis. Possible that day longterm facility may have switched shampoos or detergents recently. The patient has not changed any medications recently and none of the medications that he is on are typically allergenic in nature. Will give the patient 1 dose of IV Decadron and start the patient on prednisone 40 mg p.o. daily. Will initiate therapy with Pepcid and IV Benadryl as needed for pruritus. Patient had paronychia of the 3rd and 4th digit of the left hand. He has some mild leukocytosis. He has been placed on empiric antibiotic therapy with doxycycline. Purulent fluid have been sent for culture. Blood cultures are pending. Patient has been admitted as observation status. Subjective Date/time seen: 03/13/21 11:54 Patient 80 y/o male chronically ill, dementia unable to provider any ROS or hx. patient has nonespecific skin eruption etiology is uncertain, wound culture is growing gram positive cocci sensitivities pending however patient being treated with doxycycline white counts are trending down, will culture is pending also patient is being treated with prednisone, Benadryl, and Pepcid, his overall clinical symptoms are improving. Will follow-up on wound culture sensitivity and further recommendation to follow Review of Systems Review of Systems: ROS unobtainable: Yes unobtainable due to medical condition and unobtainable due to mental status Exam Narrative: Exam Narrative: General: Well-developed well-nourished in NAD HEENT: Mucous membranes are moist, of the tongue, pupils are equal and reactive, edentulous Neck: No adenopathy or thyromegaly Respiratory: Decreased breath sounds bilaterally, no increased work of breathing Cardiovascular: Regular rate, regular rhythm, 2+ bilateral radial pedal pulses Gastrointestinal: Soft, nontender, nondisten
[2021-03-13 17:04] LABS: SARS-CoV-2 RNA PCR Negative
[2021-03-13] MEDS: LACTATED RINGERS 1,000 ML 75 ML IV CONT (22:46)
[2021-03-14] VITALS (11 sets, daily range): BP systolic 109–118; BP diastolic 53–67; PULSE 70–86; RESP 14–20; TEMP 36.1–37; O2SAT 96–100
[2021-03-14] MEDS: diphenhydrAMINE HCl INJ 50 MG/ML VIAL IV PUSH (05:23)
[2021-03-14] MEDS: BUDESONIDE RESPULE NEB 0.5 MG/2 ML AMP 0.25 MG INHALATION ×2 (08:09→20:36)
[2021-03-14] MEDS: POLYSACCHARIDE IRON COMPLEX 150 MG CAPSULE PO ×2 (08:11→16:23)
[2021-03-14] MEDS: ASCORBIC ACID 500 MG TABLET 1000 MG PO (08:12)
[2021-03-14] MEDS: FAMOTIDINE 20 MG/2 ML VIAL IV PUSH ×2 (08:12→20:53)
[2021-03-14] MEDS: CALCIUM CARBONATE (OSCAL) 500 MG TABLET PO ×2 (08:12→16:23)
[2021-03-14] MEDS: MEGESTROL ACETATE (*CHEMO) ORAL SUSP 40 MG/ML SYR 625 MG PO (08:12)
[2021-03-14] MEDS: predniSONE 20 MG TABLET 40 MG PO (08:12)
[2021-03-14] MEDS: CLOPIDOGREL BISULFATE 75 MG TABLET PO (08:12)
[2021-03-14] MEDS: FINASTERIDE 5 MG TABLET PO (08:12)
[2021-03-14] MEDS: THERAPEUTIC MULTIVITAMINS/MINERALS TAB (*BKC) 1 TABLET PO (08:13)
[2021-03-14] MEDS: RIVAROXABAN 2.5 MG TABLET PO ×2 (08:13→16:24)
[2021-03-14] MEDS: TAMSULOSIN HCL 0.4 MG CAPSULE PO (08:13)
--- NOTE | 2021-03-14 12:45 | PM.IMPN ---
Progress Note: A&P Assessment and Plan (1) Rash and nonspecific skin eruption: Code(s): R21 - Rash and other nonspecific skin eruption Status: Acute Assessment and Plan: Erythroderma is usually more extensive Contact or atopic dermatitis vs systemic issue (staph infection, psoriasis) vs drug reaction Continue with prednisone, diphenhydramine, famotidine Continue doxycycline as leukocytosis is improving. Staph aureus growing from finger culture GPCs on gram stain of palm Blood culture negative thus far Continues to improve slowly 03/13/21 11:54 Patient 80 y/o male chronically ill, dementia unable to provider any ROS or hx. patient has nonespecific skin eruption etiology is uncertain, wound culture is growing gram positive cocci sensitivities pending however patient being treated with doxycycline white counts are trending down, will culture is pending also patient is being treated with prednisone, Benadryl, and Pepcid, his overall clinical symptoms are improving. Cultures positive for MSSA Continue present management Apply Neosporin to lesions as needed Doubtful of systemic infection has no mucosal involvement no skin slough of. (2) Skin pustule: Code(s): L08.9 - Local infection of the skin and subcutaneous tissue, unspecified Status: Acute Assessment and Plan: One on each palm Worrisome for systemic process 03/11 left palm pustule incised and sent for gram stain and culture still pending Suspect superinfection Culture growing MSSA (3) Paronychia of finger: Qualifiers: Laterality: left Qualified Code(s): L03.012 - Cellulitis of left finger Code(s): L03.019 - Cellulitis of unspecified finger Status: Acute Assessment and Plan: Staph aureus in culture MSSA growing in culture (4) Dementia: Qualifiers: Dementia type: unspecified type Dementia behavioral disturbance: without behavioral disturbance Qualified Code(s): F03.90 - Unspecified dementia without behavioral disturbance Code(s): F03.90 - Unspecified dementia without behavioral disturbance Status: Acute Assessment and Plan: Likely at baseline mental status Additional Plan Patient has a generalized skin eruption seems most consistent with contact dermatitis. Possible that day senior care facility may have switched shampoos or detergents recently. The patient has not changed any medications recently and none of the medications that he is on are typically allergenic in nature. Will give the patient 1 dose of IV Decadron and start the patient on prednisone 40 mg p.o. daily. Will initiate therapy with Pepcid and IV Benadryl as needed for pruritus. Patient had paronychia of the 3rd and 4th digit of the left hand. He has some mild leukocytosis. He has been placed on empiric antibiotic therapy with doxycycline. Purulent fluid have been sent for culture. Blood cultures are pending. Patient has been admitted as observation status. Subjective Date/time seen: 03/14/21 12:45 Nonverbal Interval history: Admitted 03/10 for itching, generalized rash. Patient is unable to provide hx. Review of Systems Review of Systems: ROS unobtainable: Yes unobtainable due to medical condition and unobtainable due to mental status Exam Narrative: Exam Narrative: Laying in bed Const: General: comfortable, no acute distress, well developed, alert and awake Nutritional Appearance: average body habitus Orientation/consciousness: patient oriented x3 HENMT: Head: normal to inspection, normocephalic and atraumatic Ears: hearing grossly normal bilaterally Face and sinus: normal facial exam Eyes: General: appearance normal, both eyes and all related structures Pupils: Equal, round and reactive pupils present EOM: EOMs intact bilaterally Neck: Neck: full ROM, no lymphadenopathy and no JVD Thyroid: thyroid normal Lymphatic: no lymphadenopathy noted Resp: Effort & Inspection: normal respira
[2021-03-14] MEDS: LACTATED RINGERS 1,000 ML 75 ML IV CONT (20:52)
[2021-03-15] VITALS (7 sets, daily range): BP systolic 119–136; BP diastolic 56–80; PULSE 77–100; RESP 16–20; TEMP 36.5–36.9; O2SAT 97–99
[2021-03-15] MEDS: BUDESONIDE RESPULE NEB 0.5 MG/2 ML AMP 0.25 MG INHALATION ×2 (07:56→20:25)
[2021-03-15] MEDS: POLYSACCHARIDE IRON COMPLEX 150 MG CAPSULE PO ×2 (08:24→17:35)
[2021-03-15] MEDS: TAMSULOSIN HCL 0.4 MG CAPSULE PO (08:24)
[2021-03-15] MEDS: FINASTERIDE 5 MG TABLET PO (08:24)
[2021-03-15] MEDS: MEGESTROL ACETATE (*CHEMO) ORAL SUSP 40 MG/ML SYR 625 MG PO (08:25)
[2021-03-15] MEDS: CLOPIDOGREL BISULFATE 75 MG TABLET PO (08:28)
[2021-03-15] MEDS: ASCORBIC ACID 500 MG TABLET 1000 MG PO (08:28)
[2021-03-15] MEDS: FAMOTIDINE 20 MG/2 ML VIAL IV PUSH ×2 (08:29→20:57)
[2021-03-15] MEDS: THERAPEUTIC MULTIVITAMINS/MINERALS TAB (*BKC) 1 TABLET PO (08:29)
[2021-03-15] MEDS: predniSONE 20 MG TABLET 40 MG PO (08:29)
[2021-03-15] MEDS: CALCIUM CARBONATE (OSCAL) 500 MG TABLET PO ×2 (08:29→17:35)
[2021-03-15] MEDS: RIVAROXABAN 2.5 MG TABLET PO ×2 (08:29→17:35)
[2021-03-15] MEDS: diphenhydrAMINE HCl INJ 50 MG/ML VIAL IV PUSH (14:18)
--- NOTE | 2021-03-15 17:28 | PM.IMPN ---
Progress Note: A&P Assessment and Plan (1) Rash and nonspecific skin eruption: Code(s): R21 - Rash and other nonspecific skin eruption Status: Acute Assessment and Plan: Erythroderma is usually more extensive Contact or atopic dermatitis vs systemic issue (staph infection, psoriasis) vs drug reaction Continue with prednisone, diphenhydramine, famotidine Continue doxycycline as leukocytosis is improving. Staph aureus growing from finger culture GPCs on gram stain of palm Blood culture negative thus far Continues to improve slowly 03/13/21 11:54 Patient 80 y/o male chronically ill, dementia unable to provider any ROS or hx. patient has nonespecific skin eruption etiology is uncertain, wound culture is growing gram positive cocci sensitivities pending however patient being treated with doxycycline white counts are trending down, will culture is pending also patient is being treated with prednisone, Benadryl, and Pepcid, his overall clinical symptoms are improving. Cultures positive for MSSA Continue present management Apply Neosporin to lesions as needed Doubtful of systemic infection has no mucosal involvement no skin slough of. (2) Skin pustule: Code(s): L08.9 - Local infection of the skin and subcutaneous tissue, unspecified Status: Acute Assessment and Plan: One on each palm Worrisome for systemic process 03/11 left palm pustule incised and sent for gram stain and culture still pending Suspect superinfection Culture growing MSSA (3) Paronychia of finger: Qualifiers: Laterality: left Qualified Code(s): L03.012 - Cellulitis of left finger Code(s): L03.019 - Cellulitis of unspecified finger Status: Acute Assessment and Plan: Staph aureus in culture MSSA growing in culture (4) Dementia: Qualifiers: Dementia type: unspecified type Dementia behavioral disturbance: without behavioral disturbance Qualified Code(s): F03.90 - Unspecified dementia without behavioral disturbance Code(s): F03.90 - Unspecified dementia without behavioral disturbance Status: Acute Assessment and Plan: Likely at baseline mental status Additional Plan Patient has a generalized skin eruption seems most consistent with contact dermatitis. Possible that day long term facility may have switched shampoos or detergents recently. The patient has not changed any medications recently and none of the medications that he is on are typically allergenic in nature. Will give the patient 1 dose of IV Decadron and start the patient on prednisone 40 mg p.o. daily. Will initiate therapy with Pepcid and IV Benadryl as needed for pruritus. Patient had paronychia of the 3rd and 4th digit of the left hand. He has some mild leukocytosis. He has been placed on empiric antibiotic therapy with doxycycline. Purulent fluid have been sent for culture. Blood cultures are pending. Patient has been admitted as observation status. 03/15/2021 Patient is slow to improve Continues systemic steroid therapy and antibiotic Cont Benadryl PT/OT Continue current care A.m. labs ordered despite return to residential in 1-2 days Subjective Date/time seen: 03/15/21 10:28 Patient doing okay he does not speak to me but does follow commands does not appear to be in any distress Interval history: Admitted 03/10 for itching, generalized rash. Patient is unable to provide hx. Exam Narrative: Exam Narrative: Laying in bed Const: General: comfortable, no acute distress, alert and awake Nutritional Appearance: average body habitus and thin HENMT: Head: normal to inspection, normocephalic and atraumatic Ears: hearing grossly normal bilaterally Face and sinus: normal facial exam Eyes: General: appearance normal, both eyes and all related structures EOM: EOMs intact bilaterally Neck: Neck: full ROM, no lymphadenopathy and no JVD Resp: Effort & Inspection: normal respir
[2021-03-15] MEDS: LACTATED RINGERS 1,000 ML 75 ML IV CONT (20:57)
[2021-03-16] VITALS (7 sets, daily range): BP systolic 114–129; BP diastolic 54–80; PULSE 60–82; RESP 16–20; TEMP 36.3–36.6; O2SAT 96–99
[2021-03-16] MEDS: diphenhydrAMINE HCl INJ 50 MG/ML VIAL IV PUSH ×3 (02:22→18:01)
[2021-03-16 05:46] LABS: Anion Gap 6 mmol/L (8-16); Bilirubin,Total 0.6 mg/dL (0.2-1.3); Blood Urea Nitrogen 19 mg/dL (9-20); Calcium 8.8 mg/dL (8.4-10.2); Carbon Dioxide 26 mmol/L (22-30); Chloride 109 mmol/L (98-107); Estimated CRCL calculation 57 ml/min; Estimated Glomerular Filt Rate > 60; Glucose 87 mg/dL (75-110); Phosphorus 3.5 mg/dL (2.5-4.5); Potassium 4.2 mmol/L (3.4-5.0); Sodium 141 mmol/L (137-145)
[2021-03-16 05:47] LABS: Alanine Aminotransferase 12 U/L (4-50); Albumin Level 2.9 g/dL (3.5-5.1); Alkaline Phosphatase 42 U/L (38-126); Aspartate Amino Transferase 19 U/L (17-59); CRP 0.7 mg/dL (<1.0)
[2021-03-16 05:59] LABS: Basophils Percent Auto 0.2 % (0.2-1.2); Eosinophils Absolute Auto 0.2 K/mm3 (0-0.3); Eosinophils Percent Auto 1.5 % (0-4.4); Hematocrit 41.7 % (42.0-52.0); Hemoglobin 13.5 g/dL (14.0-18.0); Immature Granulocyte Absolute 0.14 K/mm3 (0.00-0.031); Immature Granulocyte Percent A 1.1 % (0-0.5); Lymphocytes Absolute Auto 3.33 K/mm3 (0.9-3.2); Lymphocytes Percent Auto 25.6 % (18.3-44.2); Mean Corpuscular HGB Conc 32.4 g/dl (32-36); Mean Corpuscular Hemoglobin 30.6 pg (26-34); Mean Corpuscular Volume 94.6 fl (80-100); Mean Platelet Volume 11.2 fl (7.4-10.4); Monocytes Absolute Auto 1.3 K/mm3 (0.1-0.6); Monocytes Percent Auto 9.7 % (2.6-8.5); Neutrophils Absolute Auto 8.1 K/mm3 (1.3-6.7); Neutrophils Percent Auto 61.9 % (45.5-73.1); Platelet Count Result 258 k/mm3 (150-375); Red Blood Count 4.41 M/mm3 (4.6-6.20); Red Cell Distribution Width 14.6 % (11.5-14.5)
[2021-03-16] MEDS: POLYSACCHARIDE IRON COMPLEX 150 MG CAPSULE PO ×2 (08:12→17:20)
[2021-03-16] MEDS: CALCIUM CARBONATE (OSCAL) 500 MG TABLET PO ×2 (08:13→17:20)
[2021-03-16] MEDS: FAMOTIDINE 20 MG/2 ML VIAL IV PUSH (08:13)
[2021-03-16] MEDS: predniSONE 20 MG TABLET 40 MG PO (08:13)
[2021-03-16] MEDS: ASCORBIC ACID 500 MG TABLET 1000 MG PO (08:13)
[2021-03-16] MEDS: CLOPIDOGREL BISULFATE 75 MG TABLET PO (08:13)
[2021-03-16] MEDS: FINASTERIDE 5 MG TABLET PO (08:13)
[2021-03-16] MEDS: MEGESTROL ACETATE (*CHEMO) ORAL SUSP 40 MG/ML SYR 625 MG PO (08:14)
[2021-03-16] MEDS: THERAPEUTIC MULTIVITAMINS/MINERALS TAB (*BKC) 1 TABLET PO (08:14)
[2021-03-16] MEDS: RIVAROXABAN 2.5 MG TABLET PO ×2 (08:16→17:20)
[2021-03-16] MEDS: TAMSULOSIN HCL 0.4 MG CAPSULE PO (08:17)
[2021-03-16] MEDS: BUDESONIDE RESPULE NEB 0.5 MG/2 ML AMP 0.25 MG INHALATION (08:31)
[2021-03-16] MEDS: CALAMINE LOTION 120 ML BOTTLE 1 APPLIC TOPICAL (11:08)
[2021-03-16] MEDS: LACTATED RINGERS 1,000 ML 75 ML IV CONT (14:13)
--- NOTE | 2021-03-16 14:59 | PM.IMPN ---
Progress Note: A&P Assessment and Plan (1) Rash and nonspecific skin eruption: Code(s): R21 - Rash and other nonspecific skin eruption Status: Acute Assessment and Plan: Erythroderma is usually more extensive Contact or atopic dermatitis vs systemic issue (staph infection, psoriasis) vs drug reaction Continue with prednisone, diphenhydramine, famotidine Continue doxycycline as leukocytosis is improving. Staph aureus growing from finger culture GPCs on gram stain of palm Blood culture negative thus far Continues to improve slowly 03/13/21 11:54 Patient 80 y/o male chronically ill, dementia unable to provider any ROS or hx. patient has nonespecific skin eruption etiology is uncertain, wound culture is growing gram positive cocci sensitivities pending however patient being treated with doxycycline white counts are trending down, will culture is pending also patient is being treated with prednisone, Benadryl, and Pepcid, his overall clinical symptoms are improving. Cultures positive for MSSA Continue present management Apply Neosporin to lesions as needed Doubtful of systemic infection has no mucosal involvement no skin slough of. (2) Skin pustule: Code(s): L08.9 - Local infection of the skin and subcutaneous tissue, unspecified Status: Acute Assessment and Plan: One on each palm Worrisome for systemic process 03/11 left palm pustule incised and sent for gram stain and culture still pending Suspect superinfection Culture growing MSSA (3) Paronychia of finger: Qualifiers: Laterality: left Qualified Code(s): L03.012 - Cellulitis of left finger Code(s): L03.019 - Cellulitis of unspecified finger Status: Acute Assessment and Plan: Staph aureus in culture MSSA growing in culture (4) Dementia: Qualifiers: Dementia type: unspecified type Dementia behavioral disturbance: without behavioral disturbance Qualified Code(s): F03.90 - Unspecified dementia without behavioral disturbance Code(s): F03.90 - Unspecified dementia without behavioral disturbance Status: Acute Assessment and Plan: Likely at baseline mental status Additional Plan Patient has a generalized skin eruption seems most consistent with contact dermatitis. [facility] switched shampoos or detergents recently. The patient has not changed any medications recently and none of the medications that he is on are typically allergenic in nature. Will give the patient 1 dose of IV Decadron and start the patient on prednisone 40 mg p.o. daily. Will initiate therapy with Pepcid and IV Benadryl as needed for pruritus. Patient had paronychia of the 3rd and 4th digit of the left hand. He has some mild leukocytosis. He has been placed on empiric antibiotic therapy with doxycycline. Purulent fluid have been sent for culture. Blood cultures are pending. Patient has been admitted as observation status. 03/15/2021 Patient is slow to improve Continues systemic steroid therapy and antibiotic Cont Benadryl PT/OT Continue current care A.m. labs ordered Disposition [facility] to [facility]2 days 03/16/2021 Patient more alert and interactive today answering with single word responses He complains of itching He is noted to be actively scratching during our interview today RN requested to place Caladryl lotion on arms and chest to reduce pruritus Labs have improved since admission Anticipate discharge back to facility soon Subjective Date/time seen: 03/16/21 14:59 more vebal and interactive today answers my questions w one word answers, complains of itching, denies pain Exam Narrative: Exam Narrative: Laying in bed Const: General: comfortable, no acute distress, alert and awake Nutritional Appearance: average body habitus and thin HENMT: Head: normal to inspection, normocephalic and atraumatic Ears: hearing grossly normal bilater
[2021-03-16] MEDS: FAMOTIDINE 20 MG TABLET PO (21:15)
[2021-03-17] VITALS (9 sets, daily range): BP systolic 109–118; BP diastolic 58–68; PULSE 74–104; RESP 16–20; TEMP 36.5–37.2; O2SAT 94–100
[2021-03-17] MEDS: diphenhydrAMINE HCl CAP 25 MG CAPSULE 50 MG PO ×2 (00:56→07:57)
[2021-03-17] MEDS: POLYSACCHARIDE IRON COMPLEX 150 MG CAPSULE PO ×2 (08:01→16:07)
[2021-03-17] MEDS: predniSONE 20 MG TABLET 40 MG PO (08:02)
[2021-03-17] MEDS: ASCORBIC ACID 500 MG TABLET 1000 MG PO (08:02)
[2021-03-17] MEDS: FAMOTIDINE 20 MG TABLET PO ×2 (08:03→20:57)
[2021-03-17] MEDS: CLOPIDOGREL BISULFATE 75 MG TABLET PO (08:03)
[2021-03-17] MEDS: CALCIUM CARBONATE (OSCAL) 500 MG TABLET PO ×2 (08:03→16:07)
[2021-03-17] MEDS: FINASTERIDE 5 MG TABLET PO (08:04)
[2021-03-17] MEDS: THERAPEUTIC MULTIVITAMINS/MINERALS TAB (*BKC) 1 TABLET PO (08:04)
[2021-03-17] MEDS: MEGESTROL ACETATE (*CHEMO) ORAL SUSP 40 MG/ML SYR 625 MG PO (08:04)
[2021-03-17] MEDS: RIVAROXABAN 2.5 MG TABLET PO ×2 (08:04→16:07)
[2021-03-17] MEDS: TAMSULOSIN HCL 0.4 MG CAPSULE PO (08:05)
[2021-03-17] MEDS: BUDESONIDE RESPULE NEB 0.5 MG/2 ML AMP 0.25 MG INHALATION ×2 (08:39→21:38)
--- NOTE | 2021-03-17 09:00 | PM.IMPN ---
Progress Note: A&P Assessment and Plan (1) Rash and nonspecific skin eruption: Code(s): R21 - Rash and other nonspecific skin eruption Status: Acute (2) Skin pustule: Code(s): L08.9 - Local infection of the skin and subcutaneous tissue, unspecified Status: Acute Assessment and Plan: One on each palm Worrisome for systemic process 03/11 left palm pustule incised and sent for gram stain and culture still pending Suspect superinfection Culture growing MSSA 03/17/21 (3) Paronychia of finger: Qualifiers: Laterality: left Qualified Code(s): L03.012 - Cellulitis of left finger Code(s): L03.019 - Cellulitis of unspecified finger Status: Acute Assessment and Plan: Staph aureus in culture MSSA growing in culture (4) Dementia: Qualifiers: Dementia behavioral disturbance: without behavioral disturbance Dementia type: unspecified type Qualified Code(s): F03.90 - Unspecified dementia without behavioral disturbance Code(s): F03.90 - Unspecified dementia without behavioral disturbance Status: Acute Assessment and Plan: Likely at baseline mental status Additional Plan Patient has a generalized skin eruption seems most consistent with contact dermatitis. Possible that day [facility] facility may have switched shampoos or detergents recently. The patient has not changed any medications recently and none of the medications that he is on are typically allergenic in nature. Will give the patient 1 dose of IV Decadron and start the patient on prednisone 40 mg p.o. daily. Will initiate therapy with Pepcid and IV Benadryl as needed for pruritus. Patient had paronychia of the 3rd and 4th digit of the left hand. He has some mild leukocytosis. He has been placed on empiric antibiotic therapy with doxycycline. Purulent fluid have been sent for culture. Blood cultures are pending. Patient has been admitted as observation status. Erythroderma is usually more extensive Contact or atopic dermatitis vs systemic issue (staph infection, psoriasis) vs drug reaction Continue with prednisone, diphenhydramine, famotidine Continue doxycycline as leukocytosis is improving. Staph aureus growing from finger culture GPCs on gram stain of palm Blood culture negative thus far Continues to improve slowly 03/13/21 11:54 Patient 80 y/o male chronically ill, dementia unable to provider any ROS or hx. patient has nonespecific skin eruption etiology is uncertain, wound culture is growing gram positive cocci sensitivities pending however patient being treated with doxycycline white counts are trending down, will culture is pending also patient is being treated with prednisone, Benadryl, and Pepcid, his overall clinical symptoms are improving. Cultures positive for MSSA Continue present management Apply Neosporin to lesions as needed Doubtful of systemic infection has no mucosal involvement no skin slough of. 03/15/2021 Patient is slow to improve Continues systemic steroid therapy and antibiotic Cont Benadryl PT/OT Continue current care A.m. labs ordered Disposition return to shelter in 1-2 days 03/16/2021 Patient more alert and interactive today answering with single word responses He complains of itching He is noted to be actively scratching during our interview today RN requested to place Caladryl lotion on arms and chest to reduce pruritus Labs have improved since admission Anticipate discharge back to facility soon 03/17/21 today is the first day that I note mild improvement cont oral steroid therapy no line unable to provide IV fluids encourage PO intake topical Caladryl on arms and chest Subjective Date/time seen: 03/17/21 09:00 patient doing okay still noted to be scratching but rash does appear to be improving Exam Narrative: Exam Narrative: Laying in bed Const: General: comfortable, no acute distress, alert and awake Nutrition
--- NOTE | 2021-03-17 09:39 | PC.NURSE ---
Order received to bladder scan patient for no urine output. Called Dr. Rueda and left voice message regarding patient voiding large amounts of urine throughout day and night. Patient is consistently incontinent and does not know when he is voiding. Notified Dr. Rueda of same.
--- NOTE | 2021-03-17 10:07 | PCNWS ---
Weekly nutritional screen. Patient is tolerating current diet with adequate intake. No weight loss reported. No nutritional needs at this time.
--- NOTE | 2021-03-17 11:42 | PCNSR ---
On 03/17/21, the student,Leighann Hinton, provided care and completed [facility] documentation on this patient. I have reviewed the student's documentation and agree with the findings.
--- NOTE | 2021-03-17 12:38 | PC.NURSE ---
Patient incontinent of large amount of urine. Bladder scanner revealed 73 cc urine in bladder after voiding.
[2021-03-17] MEDS: CALAMINE LOTION 120 ML BOTTLE 1 APPLIC TOPICAL (12:49)
[2021-03-17] MEDS: diphenhydrAMINE HCl CAP 25 MG CAPSULE PO ×2 (16:07→20:57)
[2021-03-18 00:16] VITALS: BP 123/58; PULSE 84; RESP 22; TEMP 36.5; O2SAT 95
[2021-03-18] MEDS: diphenhydrAMINE HCl CAP 25 MG CAPSULE PO ×2 (02:27→08:47)
[2021-03-18 05:49] VITALS: BP 123/52; PULSE 77; RESP 20; TEMP 36.2; O2SAT 92
[2021-03-18] MEDS: CALCIUM CARBONATE (OSCAL) 500 MG TABLET PO (08:46)
[2021-03-18] MEDS: CLOPIDOGREL BISULFATE 75 MG TABLET PO (08:46)
[2021-03-18] MEDS: RIVAROXABAN 2.5 MG TABLET PO (08:46)
[2021-03-18] MEDS: POLYSACCHARIDE IRON COMPLEX 150 MG CAPSULE PO (08:46)
[2021-03-18] MEDS: FINASTERIDE 5 MG TABLET PO (08:46)
[2021-03-18] MEDS: MEGESTROL ACETATE (*CHEMO) ORAL SUSP 40 MG/ML SYR 625 MG PO (08:47)
[2021-03-18] MEDS: FAMOTIDINE 20 MG TABLET PO (08:47)
[2021-03-18] MEDS: TAMSULOSIN HCL 0.4 MG CAPSULE PO (08:47)
[2021-03-18] MEDS: ASCORBIC ACID 500 MG TABLET 1000 MG PO (08:47)
[2021-03-18] MEDS: predniSONE 20 MG TABLET 40 MG PO (08:47)
[2021-03-18] MEDS: THERAPEUTIC MULTIVITAMINS/MINERALS TAB (*BKC) 1 TABLET PO (08:47)
[2021-03-18] MEDS: BUDESONIDE RESPULE NEB 0.5 MG/2 ML AMP 0.25 MG INHALATION (09:35)
--- NOTE | 2021-03-18 09:35 | PM.DS ---
DS: Admitting Diagnosis Admitting Diagnosis Admitting Diagnosis: (1) Rash and nonspecific skin eruption: Code(s): R21 - Rash and other nonspecific skin eruption Status: Acute (2) Paronychia of finger: Qualifiers: Laterality: left Qualified Code(s): L03.012 - Cellulitis of left finger Code(s): L03.019 - Cellulitis of unspecified finger Status: Acute DS: Discharge Diagnosis Discharge Diagnosis (1) Rash and nonspecific skin eruption: Code(s): R21 - Rash and other nonspecific skin eruption Status: Acute (2) Skin pustule: Code(s): L08.9 - Local infection of the skin and subcutaneous tissue, unspecified Status: Acute Assessment and Plan: One on each palm Worrisome for systemic process 03/11 left palm pustule incised and sent for gram stain and culture still pending Suspect superinfection Culture growing MSSA 03/17/21 (3) Paronychia of finger: Qualifiers: Laterality: left Qualified Code(s): L03.012 - Cellulitis of left finger Code(s): L03.019 - Cellulitis of unspecified finger Status: Acute Assessment and Plan: Staph aureus in culture MSSA growing in culture (4) Dementia: Qualifiers: Dementia behavioral disturbance: without behavioral disturbance Dementia type: unspecified type Qualified Code(s): F03.90 - Unspecified dementia without behavioral disturbance Code(s): F03.90 - Unspecified dementia without behavioral disturbance Status: Acute Assessment and Plan: Likely at baseline mental status DS: Summary Hospital Course Reason for hospitalization: Rash Hospital Course: 80-year-old male with advanced dementia the [facility] with complaint of rash present for 1 week. Patient was placed on IV antibiotics and started on steroids. He was given topical lotion to help reduce pruritus. Patient's rash was improving at the time of discharge. He is discharged back to the pen[facility]entiary on oral antibiotic therapy to prevent superimposed infection due to his ongoing scratching with excoriations, as well as, steroid taper. Recommendations have been made for him to have his nails clipped returning to his penitentiary and have an outpatient follow-up with dermatology. Time Spent with Patient Time attestation: Total time spent providing and/or coordinating discharge services: Exam Narrative: Exam Narrative: Laying in bed Const: General: comfortable, no acute distress, alert and awake Nutritional Appearance: average body habitus and thin HENMT: Head: normal to inspection, normocephalic and atraumatic Ears: hearing grossly normal bilaterally Face and sinus: normal facial exam Eyes: General: appearance normal, both eyes and all related structures EOM: EOMs intact bilaterally Neck: Neck: full ROM, no lymphadenopathy and no JVD Thyroid: thyroid normal Lymphatic: no lymphadenopathy noted Resp: Effort & Inspection: normal respiratory effort Auscultation: clear to auscultation bilaterally Cardio: Jugular venous distension: no JVD Rate: regular rate Rhythm: regular rhythm Heart sounds: S1 normal heart sound present and S2 normal heart sound present : General: Yes deferred Skin: Rashes: rashes noted (improving a little ) maculopapular rash truncal distribution and other ( excoriations noted over arms) Wounds: no wounds Neuro: General: CN's II-XI intact bilaterally Cranial nerves: Yes CN's II-XII intact bilaterally Cognition (Neuro): abnormal cognition (Demented answers with one-word responses) Speech: normal speech Gait exam (Neuro): Normal gait present Motor exam (neuro): 5/5 motor strength present throughout Extrem: General: normal to inspection, full ROM, no joint enlargement and no pedal edema DS: Data Data Completed and Pending Completed studies during hospitalization: Wound Culture Final 03/14/21-101
[2021-03-18 09:37] VITALS: PULSE 77; RESP 20
[2021-03-18 10:00] VITALS: BP 119/89; PULSE 76; RESP 16; TEMP 37.2; O2SAT 96
== END 2021-03-18 11:30 | DRG 603 ==
LOC: ANHED 20:51 → ANH2MED 23:01
PROVIDERS: Emergency Medicine Emergency Medical Services; Internal Medicine; Admitting Provider Internal Medicine; Emergency Provider Emergency Medicine; PCP Family Medicine; Visit Provider Hospitalist
DX: L08.9 Local infection of the skin and subcutaneous tissue, unspecified (principal); L03.012 Cellulitis of left finger; R21 Rash and other nonspecific skin eruption; B95.61 Methicillin susceptible Staphylococcus aureus infection as the cause of diseases classified elsewhere; Z20.822 Contact with and (suspected) exposure to COVID-19; F03.90 Unspecified dementia, unspecified severity, without behavioral disturbance, psychotic disturbance, mood disturbance, and anxiety; J44.9 Chronic obstructive pulmonary disease, unspecified; E86.0 Dehydration; N40.0 Benign prostatic hyperplasia without lower urinary tract symptoms; E78.5 Hyperlipidemia, unspecified; Z66 Do not resuscitate; Z79.01 Long term (current) use of anticoagulants; Z79.899 Other long term (current) drug therapy; Z86.73 Personal history of transient ischemic attack (TIA), and cerebral infarction without residual deficits
CPT/HCPCS: 10061; 36415; 51701; 71045; 73140; 80048; 80053; 81001; 83605; 83735; 84100; 85025; 85027; 86140; 87040; 87070; 87075; 87147; 87186; 87205; 94640; 96365; 99285; A9270; C9803; J1100; J1200; J7030; J7120; J7512; U0003; U0005

== ENCOUNTER 2021-04-20 14:08 | Inpatient (IN) | payer MEDICARE, MEDICAID, SELFPAY ==
--- NOTE | ~2021-04-20 | XR_ITS ---
EXAMINATION: XR chest 1V portable EXAM DATE: 04/28/2021 09:58 INDICATION: Hypoxia. TECHNIQUE: Portable AP frontal chest x-ray was obtained. Comparison is made to prior examination from 04/20/2021. FINDINGS: Chronic left hemidiaphragm elevation could indicate paralysis. Adjacent atelectasis. The sanjuanita ngs are otherwise clear. There are no pleural effusions. The cardiomediastinal silhouette is within normal limits. There is no pneumothorax suspected. There are bony degenerative changes. There is n o significant interval change. IMPRESSION: Chronic left hemidiaphragm elevation and adjacent atelectasis. Reviewed, dictated and finalized at location A.
--- NOTE | ~2021-04-20 | XR_ITS ---
EXAMINATION: XR chest 1V portable EXAM DATE: 04/20/2021 15:48 INDICATION: Unresponsive episode. TECHNIQUE: Portable AP frontal chest x-ray was obtained. Comparison is made to prior examination from 03/10/2021. FINDINGS: Chronic left hemidiaphragm elevation with adjacent linear atelectasis/scarring. This could indicate hemidiaphragm paralysis. The lungs are otherwise clear. There are no pleural effusions. Th e cardiomediastinal silhouette is within normal limits. There is no pneumothorax suspected. There a re bony degenerative changes. IMPRESSION: Left hemidiaphragm chronic elevation, possible paralysis. Adjacent atelectasis. Reviewed, dictated and finalized at location B.
--- NOTE | ~2021-04-20 | US_ITS ---
EXAMINATION: US renal BI DATE: 04/21/2021 16:33 INDICATION: Decreased kidney function. TECHNIQUE: Multiple ultrasound grayscale images of the kidneys were obtained. COMPARISON: None. FINDINGS: The right kidney measures 9.0 x 5.7 x 5.1 cm. The left kidney measures 16.9 x 5.3 x 7.3 cm. The kidne ys demonstrate normal parenchymal echogenicity. There is a 2.0 cm hypoechoic mass in right kidney. Th ere are cysts in left kidney measuring up to 8.9 cm. There is no hydronephrosis. The bladder is astrid l. IMPRESSION: 1. Normal kidney sizes. No hydronephrosis. 2. 2.0 cm hypoechoic mass in right kidney, which may be a cyst or neoplasm. Abdomen CT without and wi th contrast is recommended. Reviewed, dictated and finalized at location A. IMPRESSION: 1. Normal kidney sizes. No hydronephrosis. 2. 2.0 cm hypoechoic mass in right kidney, which may be a cyst or neoplasm. Abd omen CT without and with contrast is recommended.
--- NOTE | ~2021-04-20 | CT_ITS ---
EXAMINATION: CT brain wo con DATE: 04/20/2021 15:38 INDICATION: Unresponsive. TECHNIQUE: Computed tomography (CT) of the head was performed without intravenous contrast. The mA wa s adjusted according to patient size. Iterative reconstruction technique was employed. The dose-lengt h product was 605.33 mGy-cm. COMPARISON: Head CT 01/21/2021 FINDINGS: There are old infarcts in the bilateral basal ganglia and thalami. There is an old infarct in right temporal occipital region in the expected distribution of right posterior cerebral artery. T here is an old lacunar infarct in the dunia. There are scattered areas of low attenuation in the cereb ral white matter. There is no intracranial hemorrhage, acute infarction, or abnormal intracranial mas s lesion. There is ex vacuo dilatation of temporal horn of right lateral ventricle. There are likely changes of ocular lens replacement surgeries. The paranasal sinuses are clear. The mastoid air cells are normal. IMPRESSION: 1. Old infarcts involving the bilateral basal ganglia and thalami, dunia, and right temporal occipital region. 2. Stable extensive nonspecific cerebral white matter disease, which likely represents chronic small vessel ischemic disease. Reviewed, dictated and finalized at location A. IMPRESSION: 1. Old infarcts involving the bilateral basal ganglia and thalami, dunia, and ri ght temporal occipital region. 2. Stable extensive nonspecific cerebral white matter disease, which likely rep resents chronic small vessel ischemic disease.
--- NOTE | 2021-04-20 14:19 | ECG_ITS ---
Measurements Intervals [place] Rate: 79 P: 74 [place]: 130 QRS: 28 QRSD: 98 T: 87 QT: 321 QTc: 368 Interpretive Statements SINUS RHYTHM NONSPECIFIC ST & T-WAVE ABNORMALITY- ANTEROLAT/HIGH LAT LEADS BASELINE ARTIFACT- I, II, III, AVR, AVL, AVF, V1-V6 Electronically Signed On 04-20-2021 15:32:06 CDT by Orville Renee D.O.
--- NOTE | 2021-04-20 14:20 | ED.AMS ---
HPI - Altered Mental Status General Chief Complaint: Altered Mental Status Stated Complaint: altered Time Seen by Provider: 04/20/21 14:10 Source: RN notes reviewed and other (business dean) Mode of arrival: wheelchair Limitations: dementia History of Present Illness HPI narrative: This is a 80 year old male with history of dementia, CVA who presents for evaluation of altered mental status. Patient's business dean at [facility] is at bedside to provide history. She states they were on the road to go to [employer]. She noticed that patient slumped over with eyes open but he was unresponsive. Patient is not responsive to verbal and he is able to state name. She states he is now at this base line. She also reports yesterday while she was feeding him he had an episode. She reports he started drooling. She denies any changes in medication. PAtient denies any pain. Related Data Home Medications Medication Instructions Recorded Confirmed Xarelto 2.5 mg PO BID 03/10/21 04/20/21 budesonide 0.25 mg INHALATION BID 03/10/21 04/20/21 clopidogrel 75 mg PO DAILY 03/10/21 04/20/21 finasteride 5 mg PO DAILY 03/10/21 04/20/21 tamsulosin 0.4 mg PO DAILY 03/10/21 04/20/21 ascorbate calcium (vitamin C) 500 mg PO DAILY 04/20/21 04/20/21 calcium carbonate [Biocal (calcium 500 mg PO BID 04/20/21 04/20/21 carbonate)] hydrocodone-acetaminophen 1 tablet PO BID PRN 04/20/21 04/20/21 megestrol 625 mg PO DAILY 04/20/21 04/20/21 ooyxmoeh-imp-ybhb-vitamin K [Adult 1 tablet PO DAILY 04/20/21 04/20/21 Multivitamin with Iron] polysaccharide iron complex 150 mg PO DAILY 04/20/21 04/20/21 [Poly-Iron] Allergies Allergy/AdvReac Type Severity Reaction Status Date / Time No Known Allergies Allergy Verified 04/20/21 14:33 Review of Systems Review of Systems: ROS unobtainable: Yes unobtainable due to mental status PMFSH Past Medical History Medical History (Updated 04/20/21 @ 23:10 by Karon Aiken MD) BPH (benign prostatic hyperplasia) COPD (chronic obstructive pulmonary disease) CVA (cerebral vascular accident) Dementia Hyperlipidemia Surgical History Surgical History (Updated 03/10/21 @ 22:47 by Marika Villalobos DO) H/O inguinal hernia repair History of colonoscopy with polypectomy Family History Family History Mother Diabetes mellitus Heart disease Sibling Diabetes mellitus Heart disease Father Cancer Social History Social History (Updated 03/11/21 @ 01:48 by Marika Villalobos DO) Social History: Patient resides at [facility]. His brother Israel is his healthcare power of employment attorney. Code status is DNR with state form on chart. Smoking status: Never smoker Second hand tobacco smoke exposure: No Alcohol intake: never Substance use: never Substance use type: does not use Gender identity (if verbalized by the patient): Male Spiritual care concerns: No Exam Const: General: alert Other: oriented to person and place, slow to respond Eyes: EOM: EOMs intact bilaterally Resp: Effort & Inspection: normal respiratory effort and no retractions Auscultation: clear to auscultation bilaterally Cardio: Rate: regular rate Rhythm: regular rhythm Heart sounds: no murmurs GI: GI Palp: Yes Soft to palpation, No Tenderness to palpation present (GI) and No Guarding due to palpation present (GI) Auscultation: normal bowel sounds Skin: Other: diffuse dry papular rash Neuro: General: moves all extremities Psych: Mental Status: mental status grossly normal Affect: normal affect Course Consultations Consultation #1: I discussed case with Peggy gifford. PAtient found to have sodium of 174. She agrees with starting 1/2 NS and repeat BMP Date: 04/20/21 Time: 16:21 Vital Signs Vital signs: Vital Signs Temperature 97.8 F 04/20/21 14:26 Pulse Rate 76 04/20/21 14:26 Respiratory Rate 10 L
[2021-04-20 14:26] VITALS: BP 115/89; PULSE 76; RESP 10; TEMP 36.6; O2SAT 93
--- NOTE | 2021-04-20 14:43 | PC.NURSE ---
Blood sugar 87
[2021-04-20 14:44] LABS: Glucose Point of Care 87 mg/dl (65-105)
[2021-04-20 14:50] LABS: Basophils Absolute Auto 0.1 K/mm3 (0.0-0.1); Basophils Percent Auto 0.5 % (0.2-1.2); Eosinophils Absolute Auto 0.3 K/mm3 (0-0.3); Eosinophils Percent Auto 2.4 % (0-4.4); Hematocrit 50.6 % (42.0-52.0); Hemoglobin 14.9 g/dL (14.0-18.0); Immature Granulocyte Absolute 0.15 K/mm3 (0.00-0.031); Immature Granulocyte Percent A 1.2 % (0-0.5); Lymphocytes Absolute Auto 2.65 K/mm3 (0.9-3.2); Lymphocytes Percent Auto 21.5 % (18.3-44.2); Mean Corpuscular HGB Conc 29.4 g/dl (32-36); Mean Corpuscular Hemoglobin 30.3 pg (26-34); Mean Corpuscular Volume 102.8 fl (80-100); Mean Platelet Volume 10.6 fl (7.4-10.4); Monocytes Absolute Auto 0.8 K/mm3 (0.1-0.6); Monocytes Percent Auto 6.1 % (2.6-8.5); Neutrophils Absolute Auto 8.4 K/mm3 (1.3-6.7); Neutrophils Percent Auto 68.3 % (45.5-73.1); Platelet Count Result 356 k/mm3 (150-375); Red Blood Count 4.92 M/mm3 (4.6-6.20); Red Cell Distribution Width 15.8 % (11.5-14.5); White Blood Count 12.3 K/mm3 (4.5-10.0)
[2021-04-20 15:00] LABS: Hypochromasia 1+ (NORMAL); Platelet Estimate Adequate (Adequate)
[2021-04-20 15:02] LABS: Alanine Aminotransferase 23 U/L (4-50); Albumin Level 3.7 g/dL (3.5-5.1); Alkaline Phosphatase 72 U/L (38-126); Anion Gap 11 mmol/L (8-16); Aspartate Amino Transferase 33 U/L (17-59); Bilirubin,Total 0.6 mg/dL (0.2-1.3); Blood Urea Nitrogen 55 mg/dL (9-20); Calcium 9.9 mg/dL (8.4-10.2); Carbon Dioxide 22 mmol/L (22-30); Chloride 141 mmol/L (98-107); Estimated CRCL calculation 29 ml/min; Estimated Glomerular Filt Rate 42; Glucose 91 mg/dL (75-110); Potassium 3.4 mmol/L (3.4-5.0); Sodium 174 mmol/L (137-145)
[2021-04-20 15:11] LABS: Troponin I 0.031 ng/mL (0.000-0.034)
[2021-04-20 15:22] LABS: Add Urine Microscopic? YES; Appearance Urine Clear (Clear); Bilirubin Urine Negative (Negative); Blood Urine Negative (Negative); Color Urine Yellow (Yellow); Glucose Urine UA Negative (Negative); Ketones Urine Negative (Negative); Leukocyte Esterase Ur Negative LEU/UL (Negative); Mucus Urine Rare /lpf; Nitrate Urine Negative (Negative); Protein Urine Negative (Negative); RBC Urine 0-2 /hpf (0-2); Specific Grav Ur 1.025 (1.001-1.035); Squamous Epithelial Cell Urine Rare /hpf (Few); Urobilinogen Urine Negative mg/dL (<2.0); WBC Urine 0-3 /hpf
[2021-04-20 16:00] VITALS: BP 122/60; PULSE 72; RESP 16; O2SAT 99
[2021-04-20 18:01] LABS: Anion Gap 10 mmol/L (8-16); Blood Urea Nitrogen 54 mg/dL (9-20); Calcium 9.6 mg/dL (8.4-10.2); Carbon Dioxide 20 mmol/L (22-30); Chloride 141 mmol/L (98-107); Estimated CRCL calculation 29 ml/min; Estimated Glomerular Filt Rate 42; Glucose 93 mg/dL (75-110); Potassium 3.5 mmol/L (3.4-5.0); Sodium 171 mmol/L (137-145)
[2021-04-20] MEDS: SODIUM CHLORIDE 0.45% 1,000 ML 100 ML IV CONT (18:23)
[2021-04-20 18:40] VITALS: BP 148/101; PULSE 91; RESP 91; TEMP 36.2; O2SAT 99
--- NOTE | 2021-04-20 19:35 | ADMGEN ---
This patient, Aguila Maria, was admitted to IMU Room 206-01 at 1750. Patient/family oriented to hospital policies and general routines including ID bracelet, bed and alarms, visiting hours, pain management, procedures, bathroom and other care routines, personal items, smoking policy, room service/diet, and visiting hours. Information on how to activate the Rapid Response Team has been discussed. Patient/Family are encouraged to report perceived risks to care and to ask questions if they do not understand what they are told or what they should do.
[2021-04-20 20:00] VITALS: PULSE 94; RESP 20; O2SAT 99
[2021-04-20 21:07] LABS: Glucose Point of Care 102 mg/dl (65-105)
[2021-04-20 22:00] VITALS: PULSE 91
[2021-04-20] MEDS: DEXTROSE 5%/0.45% SOD CHL 1,000 ML 75 ML IV CONT (23:57)
[2021-04-21] VITALS (19 sets, daily range): BP systolic 98–150; BP diastolic 54–125; PULSE 55–91; RESP 12–20; TEMP 36.2–36.6; O2SAT 89–100; BMI 22.0
--- NOTE | 2021-04-21 04:19 | PM.IMHP ---
H&P: HPI History of Present Illness Date/Time: 04/21/21 04:19 Chief Complaint: ALTERED MENTAL STATUS Narrative: THIS IS A 80-YEAR-OLD MALE WITH PAST MEDICAL HISTORY SIGNIFICANT FOR ADVANCED DEMENTIA THE PATIENT RESIDES AT A [facility]ISON HE HAD PRIEB VIEWS ADMISSION AND DISCHARGED TO OUR HOSPITAL DUE TO RASH GENERALIZED PATIENT WAS TREATED WITH STEROIDS TOPICAL LOTION AND SENT BACK TO [facility]ISON ON ORAL ANTIBIOTICS. PATIENT WAS SUPPOSED TO GO FOR DERMATOLOGY APPOINTMENT TODAY WHEN THE ELECTRIC SHAVER MECHANIC NOTICE THE PATIENT SLUMPED OVER AND DROOLING AND INSTEAD CAME TO OUR EMERGENCY ROOM. PRELIMINARY WORKUP WAS SIGNIFICANT FOR A SODIUM OF 170. PATIENT IS UNABLE TO GIVE ANY HISTORY AT THE TIME OF MY VISIT. 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 Review of Systems Review of Systems: ROS unobtainable: Yes unobtainable due to medical condition PMFSH Past Medical History Medical History (Updated 04/21/21 @ 04:28 by Felecia Bella MD) BPH (benign prostatic hyperplasia) COPD (chronic obstructive pulmonary disease) CVA (cerebral vascular accident) Dementia Hyperlipidemia Surgical History Surgical History (Updated 03/10/21 @ 22:47 by Marika Villalobos DO) H/O inguinal hernia repair History of colonoscopy with polypectomy Family History Family History Mother Diabetes mellitus Heart disease Sibling Diabetes mellitus Heart disease Father Cancer Social History Social History (Updated 03/11/21 @ 01:48 by Marika Villalobos DO) Social History: Patient resides at [facility]. His brother Israel is his healthcare power of state's attorney. Code status is DNR with state form on chart. Smoking status: Never smoker Second hand tobacco smoke exposure: No Alcohol intake: never Substance use: never Substance use type: does not use Gender identity (if verbalized by the patient): Male Spiritual care concerns: No Meds Home Medications and Allergies Home Medications Medication Instructions Recorded Confirmed Type Xarelto 2.5 mg PO BID 03/10/21 04/20/21 History budesonide 0.25 mg INHALATION BID 03/10/21 04/20/21 History clopidogrel 75 mg PO DAILY 03/10/21 04/20/21 History finasteride 5 mg PO DAILY 03/10/21 04/20/21 History tamsulosin 0.4 mg PO DAILY 03/10/21 04/20/21 History calamine-zinc oxide 1 applic TOPICAL QAM PRN 20 Days 03/18/21 04/20/21 Rx #60 ml diphenhydramine HCl 25 mg PO Q6H PRN 5 Days #20 cap 03/18/21 04/20/21 Rx famotidine 20 mg PO Q12HR 30 Days #60 tablet 03/18/21 04/20/21 Rx ascorbate calcium (vitamin C) 500 mg PO DAILY 04/20/21 04/20/21 History calcium carbonate [Biocal (calcium 500 mg PO BID 04/20/21 04/20/21 History carbonate)] hydrocodone-acetaminophen 1 tablet PO BID PRN 04/20/21 04/20/21 History megestrol 625 mg PO DAILY 04/20/21 04/20/21 History hmojenaj-kbw-qpqx-vitamin K [Adult 1 tablet PO DAILY 04/20/21 04/20/21 History Multivitamin with Iron] polysaccharide iron complex 150 mg PO DAILY 04/20/21 04/20/21 History [Poly-Iron] Allergies Allergy/AdvReac Type Severity Reaction Status Date / Time No Known Allergies Allergy Verified 04/20/21 14:33 Vital Signs Vital Signs - 24 hr 04/20/21 14:26 04/20/21 16:00 04/20/21 18:40 Temperature 97.8 F 97.2 F L Pulse Rate 76 72 91 Respiratory Rate 10 L 16 91 H Blood Pressure 115/89 122/60 148/101 H Pulse Oximetry 93 99 99 04/20/21 20:00 04/20/21 22:00 04/21/21 00:00 Temperature 97.6 F Pulse Rate 94 91 90 Respiratory Rate 20 19 Blood Pressure 135/100 H Pulse Oximetry 99 99 04/21/21 02:00 04/21/21 04:00 Temperature 97.8 F Pulse Rate 82 70 Respiratory Rate 19 Blood Pressure 138/108 H Pulse Oximetry 99 Exam Narrative: Exam Narrative: LAYING IN BED ON HIS LEFT SIDE CURLED UP Const: General: comfortable, no acut
[2021-04-21 06:15] LABS: Anion Gap 10 mmol/L (8-16); Blood Urea Nitrogen 56 mg/dL (9-20); Calcium 8.9 mg/dL (8.4-10.2); Carbon Dioxide 22 mmol/L (22-30); Chloride 140 mmol/L (98-107); Estimated CRCL calculation 31 ml/min; Estimated Glomerular Filt Rate 45; Glucose 95 mg/dL (75-110); Potassium 3.2 mmol/L (3.4-5.0); Sodium 172 mmol/L (137-145)
[2021-04-21 08:03] LABS: Glucose Point of Care 87 mg/dl (65-105)
[2021-04-21] MEDS: BUDESONIDE RESPULE NEB 0.5 MG/2 ML AMP 0.25 MG INHALATION (08:42)
[2021-04-21 08:56] LABS: Magnesium 2.8 mg/dL (1.6-2.3)
--- NOTE | 2021-04-21 11:40 | PM.CNNEP ---
Assessment and Plan Assessment and plan (1) Acute hypernatremia: Code(s): E87.0 - Hyperosmolality and hypernatremia Status: Acute Assessment and Plan: the patient has hypernatremia. On exam he looks dehydrated. Most likely this is free water deficiency. I agree with giving him free water. His sodium has corrected a little bit since admission. We can continue the D5W. We can increase the rate a little bit to improve the sodium a little bit more quickly but we do not want to go too fast lest he developed cerebral edema. will check another sodium level at 4:00 p.m. and have the nurses call. (2) Acute kidney failure, unspecified: Code(s): N17.9 - Acute kidney failure, unspecified Status: Acute Assessment and Plan: The patient has an elevated creatinine. This is most likely due to dehydration. Obstruction and rhabdomyolysis or possibilities as well. Less likely possibilities include glomerulonephritis or interstitial nephritis but he has no signs or symptoms of these. Will check urine electrolytes and eosinophils. Will check an ultrasound of his kidneys. Because of significant mental status change and a normal blood pressure the priority will be to correct the sodium. If the sodium were okay I would be giving him normal saline to correct the acute kidney injury. However the Sodium is giving him more symptoms. (3) Altered mental status: Code(s): R41.82 - Altered mental status, unspecified Status: Acute Assessment and Plan: He has baseline altered mental status. This is worse due to the sodium and the renal failure. (4) CVA (cerebral vascular accident): Code(s): I63.9 - Cerebral infarction, unspecified Status: Acute Assessment and Plan: He had a CT scan which shows no new infarcts. (5) Dementia: Qualifiers: Dementia type: unspecified type Dementia behavioral disturbance: without behavioral disturbance Qualified Code(s): F03.90 - Unspecified dementia without behavioral disturbance Code(s): F03.90 - Unspecified dementia without behavioral disturbance Status: Acute History of Present Illness Reason for Consult Consult date: 04/21/21 Chief Complaint Chief complaint: syncope,acute hypernatremia History of Present Illness Narrative: Aguila is an unfortunate 80-year-old gentleman who has multiple medical problems including BPH, COPD, stroke, dementia ( Mental baseline seems to be 1 where he gives one-word answers and regards the examiner), hyperlipidemia, and now hypernatremia. The patient was on his way to a in spider assembler appointment and the dry heat cabinet attendant noted that he was slumped over and drooling so he went to the emergency room instead. He was evaluated in the ER and found to be dehydrated and hypernatremic. He was not responsive at for but woke up a little bit during the ER stay. He was given IV fluids and admitted. He was given D5 W overnight. His sodium has dropped from 174-172 over the last 12 hours. The patient cannot give a history. He does move his head a little bit when I call his name or yell but does not interact otherwise. He has not had hypernatremia in the past. It is unclear from records whether he had been eating for the last few days. He also has an elevated creatinine. His baseline creatinine is normal. Review of Systems Review of Systems: ROS unobtainable: Yes unobtainable due to medical condition PMFSH Past Medical History Medical History (Updated 04/21/21 @ 11:49 by Wu Head MD) Acute kidney failure, unspecified BPH (benign prostatic hyperplasia) COPD (chronic obstructive pulmonary disease) CVA (cerebral vascular accident) Dementia Hyperlipidemia Surgical History Surgical History H/O inguinal hernia repair History of colonoscopy with polypectomy Family History Family History (Reviewed 04/21/21
[2021-04-21 11:55] LABS: Glucose Point of Care 95 mg/dl (65-105)
[2021-04-21 12:47] LABS: Anion Gap 6 mmol/L (8-16); Blood Urea Nitrogen 53 mg/dL (9-20); Calcium 8.5 mg/dL (8.4-10.2); Carbon Dioxide 23 mmol/L (22-30); Chloride 143 mmol/L (98-107); Estimated CRCL calculation 33 ml/min; Estimated Glomerular Filt Rate 49; Glucose 103 mg/dL (75-110); Potassium 3.2 mmol/L (3.4-5.0); Sodium 172 mmol/L (137-145)
[2021-04-21 12:59] LABS: Creatine Kinase 37 U/L (55-170)
[2021-04-21] MEDS: DEXTROSE 5%/0.45% SOD CHL 1,000 ML 75 ML IV CONT (13:46)
[2021-04-21 16:26] LABS: Anion Gap 7 mmol/L (8-16); Blood Urea Nitrogen 51 mg/dL (9-20); Calcium 8.6 mg/dL (8.4-10.2); Carbon Dioxide 24 mmol/L (22-30); Chloride 139 mmol/L (98-107); Estimated CRCL calculation 31 ml/min; Estimated Glomerular Filt Rate 45; Glucose 113 mg/dL (75-110); Potassium 3.1 mmol/L (3.4-5.0); Sodium 170 mmol/L (137-145)
[2021-04-21 16:56] LABS: Glucose Point of Care 113 mg/dl (65-105)
[2021-04-21] MEDS: KCL 20 MEQ/D5W 1,000 ML 1,000 ML 100 ML IV CONT (17:40)
--- NOTE | 2021-04-21 17:52 | PM.IMPN ---
Progress Note: A&P Assessment and Plan (1) Acute hypernatremia: Code(s): E87.0 - Hyperosmolality and hypernatremia Status: Acute Assessment and Plan: ADMIT TO IMU BED REST CONTINUES TELEMETRY D5 HALF-NORMAL SALINE SERIAL BMP DOWN TRENDING ON REPEAT BMP SUPPORTIVE CARE (2) Altered mental status: Code(s): R41.82 - Altered mental status, unspecified Status: Acute Assessment and Plan: LIKELY SECONDARY TO ABOVE CONTINUE TO MONITOR SUPPORTIVE CARE 04/21/21 17:52 THIS IS A 80-YEAR-OLD MALE WITH PAST MEDICAL HISTORY SIGNIFICANT FOR ADVANCED DEMENTIA THE PATIENT RESIDES AT A [facility]M HE HAD PRIEB VIEWS ADMISSION AND DISCHARGED TO OUR HOSPITAL DUE TO RASH GENERALIZED PATIENT WAS TREATED WITH STEROIDS TOPICAL LOTION AND SENT BACK TO [facility] ON ORAL ANTIBIOTICS. PATIENT WAS SUPPOSED TO GO FOR DERMATOLOGY APPOINTMENT TODAY WHEN THE MANAGER INFUSION NOTICE THE PATIENT SLUMPED OVER AND DROOLING AND INSTEAD CAME TO OUR EMERGENCY ROOM. PRELIMINARY WORKUP WAS SIGNIFICANT FOR A SODIUM OF 170. PATIENT IS UNABLE TO GIVE ANY HISTORY AT THE TIME OF MY VISIT. 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 04/21 unfortunately patient still is quite somnolent and unable to provide any review of symptom, patient is seen by Nephrology suspect patient is dehydrated and has free water deficiency patient is being gently hydrate will continue to monitor sodium, hope once patient sodium is close to normal patient to be able to provide more history, will continue to monitor once clinically stable will have a PT OT evaluate the patient. (3) Dementia: Qualifiers: Dementia type: unspecified type Dementia behavioral disturbance: without behavioral disturbance Qualified Code(s): F03.90 - Unspecified dementia without behavioral disturbance Code(s): F03.90 - Unspecified dementia without behavioral disturbance Status: Acute Assessment and Plan: UNCHANGED (4) CVA (cerebral vascular accident): Code(s): I63.9 - Cerebral infarction, unspecified Status: Acute Assessment and Plan: CHRONIC (5) Rash and nonspecific skin eruption: Code(s): R21 - Rash and other nonspecific skin eruption Status: Acute Assessment and Plan: UNCHANGED SUPPORTIVE CARE Subjective Date/time seen: 04/21/21 17:52 THIS IS A 80-YEAR-OLD MALE WITH PAST MEDICAL HISTORY SIGNIFICANT FOR ADVANCED DEMENTIA THE PATIENT RESIDES AT A [facility]-TERM HE HAD PRIEB VIEWS ADMISSION AND DISCHARGED TO OUR HOSPITAL DUE TO RASH GENERALIZED PATIENT WAS TREATED WITH STEROIDS TOPICAL LOTION AND SENT BACK TO [facility]M ON ORAL ANTIBIOTICS. PATIENT WAS SUPPOSED TO GO FOR DERMATOLOGY APPOINTMENT TODAY WHEN THE MANAGER INFUSION NOTICE THE PATIENT SLUMPED OVER AND DROOLING AND INSTEAD CAME TO OUR EMERGENCY ROOM. PRELIMINARY WORKUP WAS SIGNIFICANT FOR A SODIUM OF 170. PATIENT IS UNABLE TO GIVE ANY HISTORY AT THE TIME OF MY VISIT. 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 04/21 unfortunately patient still is quite somnolent and unable to provide any review of symptom, patient is seen by Nephrology suspect patient is dehydrated and has free water deficiency patient is being gently hydrate will continue to monitor sodium, hope once patient sodium is close to normal patient to be able to provide more history, will continue to monitor once clinically stable will have a PT OT evaluate the patient. Review of Systems Review of Systems: ROS unobtainable: Yes unobtainable due to medical condition Exam Narrative: Exam Narrative: elderly frail Patient is comfortable, NAD HEENT: eyes are clear and none icteric LUNGS: bilateral fair air entry with minimal rhonchi HEART: RR S1S2 ABD: BS+, Soft and nontender Lower extrem
[2021-04-21] MEDS: FAMOTIDINE 20 MG TABLET PO (20:32)
[2021-04-21 21:35] LABS: Anion Gap 6 mmol/L (8-16); Blood Urea Nitrogen 48 mg/dL (9-20); Calcium 8.4 mg/dL (8.4-10.2); Carbon Dioxide 23 mmol/L (22-30); Chloride 141 mmol/L (98-107); Estimated CRCL calculation 31 ml/min; Estimated Glomerular Filt Rate 45; Glucose 103 mg/dL (75-110); Potassium 3.3 mmol/L (3.4-5.0); Sodium 170 mmol/L (137-145)
[2021-04-21 22:09] LABS: Glucose Point of Care 100 mg/dl (65-105)
[2021-04-22] VITALS (13 sets, daily range): BP systolic 95–116; BP diastolic 46–72; PULSE 68–91; RESP 16–22; TEMP 36–37.1; O2SAT 97–100
[2021-04-22 00:52] LABS: Creatinine Urine 181.1 mg/dL; Total Protein Urine Random 7 mg/dL; Ur Ttl Prot Creatinine Ratio 0.04 mg/mg (0-0.20)
[2021-04-22 01:19] LABS: Sodium Urine Random 97 meq/L
[2021-04-22] MEDS: KCL 20 MEQ/D5W 1,000 ML 1,000 ML 125 ML IV CONT (03:31)
[2021-04-22 05:32] LABS: Albumin Level 2.7 g/dL (3.5-5.1); Anion Gap 6 mmol/L (8-16); Blood Urea Nitrogen 42 mg/dL (9-20); Calcium 8.2 mg/dL (8.4-10.2); Carbon Dioxide 22 mmol/L (22-30); Chloride 138 mmol/L (98-107); Estimated CRCL calculation 35 ml/min; Estimated Glomerular Filt Rate 53; Glucose 101 mg/dL (75-110); Phosphorus 2.7 mg/dL (2.5-4.5); Potassium 3.4 mmol/L (3.4-5.0); Sodium 166 mmol/L (137-145)
[2021-04-22 06:09] LABS: Eosinophil Urine None Seen % (None Seen)
[2021-04-22 07:54] LABS: Glucose Point of Care 106 mg/dl (65-105)
[2021-04-22] MEDS: BUDESONIDE RESPULE NEB 0.5 MG/2 ML AMP 0.25 MG INHALATION (07:57)
[2021-04-22] MEDS: POLYSACCHARIDE IRON COMPLEX 150 MG CAPSULE PO (08:04)
[2021-04-22] MEDS: FINASTERIDE 5 MG TABLET PO (08:05)
[2021-04-22] MEDS: FAMOTIDINE 20 MG TABLET PO ×2 (08:05→20:42)
[2021-04-22] MEDS: ASCORBIC ACID 500 MG TABLET PO (08:06)
[2021-04-22] MEDS: THERAPEUTIC MULTIVITAMINS/MINERALS TAB (*BKC) 1 TABLET PO (08:06)
[2021-04-22] MEDS: CALCIUM CARBONATE (OSCAL) 500 MG TABLET PO ×2 (08:06→17:08)
[2021-04-22] MEDS: TAMSULOSIN HCL 0.4 MG CAPSULE PO (08:11)
[2021-04-22] MEDS: POTASSIUM CHLORIDE 20 MEQ PACKET (FOR LIQUID) 40 MEQ PO (10:00)
--- NOTE | 2021-04-22 10:54 | PM.PNNEP ---
Progress Note: A&P Assessment and Plan (1) Acute hypernatremia: Code(s): E87.0 - Hyperosmolality and hypernatremia Status: Acute Assessment and Plan: the patient has hypernatremia. urine osmolality is pending On exam he looks dehydrated. his sodium has corrected a little bit with IV fluids. His mental status seems a little bit better but not baseline. Will continue IV fluids and check another sodium later today. (2) Acute kidney failure, unspecified: Code(s): N17.9 - Acute kidney failure, unspecified Status: Acute Assessment and Plan: The patient had an elevated creatinine. his creatinine has improved with hydration to 1.3. (3) Altered mental status: Code(s): R41.82 - Altered mental status, unspecified Status: Acute Assessment and Plan: He has baseline altered mental status. This is marginally better now but not quite to where it usually is. (4) CVA (cerebral vascular accident): Code(s): I63.9 - Cerebral infarction, unspecified Status: Acute Assessment and Plan: He had a CT scan which shows no new infarcts. (5) Dementia: Qualifiers: Dementia type: unspecified type Dementia behavioral disturbance: without behavioral disturbance Qualified Code(s): F03.90 - Unspecified dementia without behavioral disturbance Code(s): F03.90 - Unspecified dementia without behavioral disturbance Status: Acute (6) Renal mass: Code(s): N28.89 - Other specified disorders of kidney and ureter Status: Acute Assessment and Plan: The patient has a questionable lesion in the right kidney on ultrasound. Judging from his comorbidities this can just be followed by his primary care person. Subjective Date/time seen: 04/22/21 10:54 Interval history: patient is lying in bed comfortably. He opens his eyes and regards examiner but does not interact very much. Nursing says that he occasionally answers questions. Review of Systems Review of Systems: ROS unobtainable: Yes unobtainable due to medical condition Exam Narrative: Exam Narrative: WDWN in NAD skin no rash head ncat lungs clear cor reg no rub abd BS+ nontender and soft ext no edema. Mucous membranes are dry Objective Data Vital Signs Vital Signs: Vital Signs - 24 hr 04/21/21 11:25 04/21/21 12:00 04/21/21 14:00 Temperature 36.2 C L Pulse Rate 67 72 76 Respiratory Rate 16 Blood Pressure 104/54 L Pulse Oximetry 100 04/21/21 16:00 04/21/21 18:00 04/21/21 20:00 Temperature 36.4 C L 36.4 C Pulse Rate 77 78 61 Respiratory Rate 17 17 Blood Pressure 150/125 H 125/90 Pulse Oximetry 89 L 98 04/21/21 20:58 04/21/21 21:05 04/21/21 21:58 Temperature Pulse Rate 63 71 75 Respiratory Rate 14 12 Blood Pressure Pulse Oximetry 04/21/21 22:00 04/21/21 23:58 04/22/21 00:00 Temperature 36.5 C Pulse Rate 62 76 75 Respiratory Rate 17 Blood Pressure 112/62 Pulse Oximetry 98 98 04/22/21 02:00 04/22/21 04:00 04/22/21 06:00 Temperature 36.4 C Pulse Rate 80 76 75 Respiratory Rate 16 Blood Pressure 110/65 Pulse Oximetry 98 04/22/21 07:45 04/22/21 07:59 04/22/21 08:00 Temperature 36.1 C L Pulse Rate 77 68 76 Respiratory Rate 20 18 Blood Pressure 95/72 L Pulse Oximetry 100 97 04/22/21 08:08 04/22/21 10:00 Temperature Pulse Rate 74 74 Respiratory Rate 18 Blood Pressure Pulse Oximetry Intake/Output Intake/Output: Intake & Output 04/19/21 04/20/21 04/21/21 04/22/21 23:59 23:59 23:59 23:59 Intake Total 2290 1100 Output Total 300 Balance 1989 1099 Meds/Results Medications: Active Medications Generic Name Dose Route Start Last Admin Trade Name Melina PRN Reason Stop Dose Admin Ascorbic Acid 500 mg 04/21/21 09:00 04/22/21 08:06 Ascorbic Acid 500 Mg Tablet PO 500 mg DAILY DANNY Administration Budesonide 0.25 mg 04/21/21
[2021-04-22 11:57] LABS: Anion Gap 5 mmol/L (8-16); Blood Urea Nitrogen 42 mg/dL (9-20); Calcium 8.4 mg/dL (8.4-10.2); Carbon Dioxide 21 mmol/L (22-30); Chloride 135 mmol/L (98-107); Estimated CRCL calculation 35 ml/min; Estimated Glomerular Filt Rate 53; Glucose 120 mg/dL (75-110); Potassium 4.2 mmol/L (3.4-5.0); Sodium 161 mmol/L (137-145)
[2021-04-22] MEDS: MEGESTROL ACETATE (*CHEMO) ORAL SUSP 40 MG/ML SYR 600 MG PO (12:06)
[2021-04-22 12:23] LABS: Glucose Point of Care 111 mg/dl (65-105)
[2021-04-22] MEDS: SODIUM CHLORIDE 0.45% 1,000 ML 75 ML IV CONT (12:27)
--- NOTE | 2021-04-22 16:45 | PM.IMPN ---
Progress Note: A&P Assessment and Plan (1) Acute hypernatremia: Code(s): E87.0 - Hyperosmolality and hypernatremia Status: Acute Assessment and Plan: ADMIT TO IMU BED REST CONTINUES TELEMETRY D5 HALF-NORMAL SALINE SERIAL BMP DOWN TRENDING ON REPEAT BMP SUPPORTIVE CARE (2) Altered mental status: Code(s): R41.82 - Altered mental status, unspecified Status: Acute Assessment and Plan: LIKELY SECONDARY TO ABOVE CONTINUE TO MONITOR SUPPORTIVE CARE 04/22/21 16:45 THIS IS A 80-YEAR-OLD MALE WITH PAST MEDICAL HISTORY SIGNIFICANT FOR ADVANCED DEMENTIA THE PATIENT RESIDES AT A SNF HE HAD PRIEB VIEWS ADMISSION AND DISCHARGED TO OUR HOSPITAL DUE TO RASH GENERALIZED PATIENT WAS TREATED WITH STEROIDS TOPICAL LOTION AND SENT BACK TO SNF ON ORAL ANTIBIOTICS. PATIENT WAS SUPPOSED TO GO FOR DERMATOLOGY APPOINTMENT TODAY WHEN THE BEEF LUGGER NOTICE THE PATIENT SLUMPED OVER AND DROOLING AND INSTEAD CAME TO OUR EMERGENCY ROOM. PRELIMINARY WORKUP WAS SIGNIFICANT FOR A SODIUM OF 170. PATIENT IS UNABLE TO GIVE ANY HISTORY AT THE TIME OF MY VISIT. 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 04/21 unfortunately patient still is quite somnolent and unable to provide any review of symptom, patient is seen by Nephrology suspect patient is dehydrated and has free water deficiency patient is being gently hydrate will continue to monitor sodium, hope once patient sodium is close to normal patient to be able to provide more history, will continue to monitor once clinically stable will have a PT OT evaluate the patient. 04/22 today patient sodium is trending down today patient sodium is 161 compared 174 upon arrival, patient still quite somnolent unable to provide any review of symptom, patient is being gently hydrated, patient seen by Nephrology, once clinically stable patient will benefit from physical therapy, will continue to monitor (3) Dementia: Qualifiers: Dementia type: unspecified type Dementia behavioral disturbance: without behavioral disturbance Qualified Code(s): F03.90 - Unspecified dementia without behavioral disturbance Code(s): F03.90 - Unspecified dementia without behavioral disturbance Status: Acute Assessment and Plan: UNCHANGED (4) CVA (cerebral vascular accident): Code(s): I63.9 - Cerebral infarction, unspecified Status: Acute Assessment and Plan: CHRONIC (5) Rash and nonspecific skin eruption: Code(s): R21 - Rash and other nonspecific skin eruption Status: Acute Assessment and Plan: UNCHANGED SUPPORTIVE CARE Subjective Date/time seen: 04/22/21 16:45 THIS IS A 80-YEAR-OLD MALE WITH PAST MEDICAL HISTORY SIGNIFICANT FOR ADVANCED DEMENTIA THE PATIENT RESIDES AT A SNF HE HAD PRIEB VIEWS ADMISSION AND DISCHARGED TO OUR HOSPITAL DUE TO RASH GENERALIZED PATIENT WAS TREATED WITH STEROIDS TOPICAL LOTION AND SENT BACK TO SNF ON ORAL ANTIBIOTICS. PATIENT WAS SUPPOSED TO GO FOR DERMATOLOGY APPOINTMENT TODAY WHEN THE BEEF LUGGER NOTICE THE PATIENT SLUMPED OVER AND DROOLING AND INSTEAD CAME TO OUR EMERGENCY ROOM. PRELIMINARY WORKUP WAS SIGNIFICANT FOR A SODIUM OF 170. PATIENT IS UNABLE TO GIVE ANY HISTORY AT THE TIME OF MY VISIT. 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 04/21 unfortunately patient still is quite somnolent and unable to provide any review of symptom, patient is seen by Nephrology suspect patient is dehydrated and has free water deficiency patient is being gently hydrate will continue to monitor sodium, hope once patient sodium is close to normal patient to be able to provide more history, will continue to monitor once clinically stable will have a PT OT evaluate the patient.
[2021-04-22 17:17] LABS: Glucose Point of Care 89 mg/dl (65-105)
--- NOTE | 2021-04-22 19:18 | PC.NURSE ---
This patient, Aguila Maria, was received from [ ] on 04/22/21 at 1918. Patient/family oriented to unit policies and routines
[2021-04-22 20:32] LABS: Anion Gap 4 mmol/L (8-16); Blood Urea Nitrogen 38 mg/dL (9-20); Calcium 8.7 mg/dL (8.4-10.2); Carbon Dioxide 22 mmol/L (22-30); Chloride 135 mmol/L (98-107); Estimated CRCL calculation 35 ml/min; Estimated Glomerular Filt Rate 53; Glucose 124 mg/dL (75-110); Potassium 4.2 mmol/L (3.4-5.0); Sodium 161 mmol/L (137-145)
[2021-04-22 20:52] LABS: Glucose Point of Care 111 mg/dl (65-105)
[2021-04-23] VITALS (8 sets, daily range): BP systolic 102–109; BP diastolic 47–67; PULSE 72–96; RESP 16–24; TEMP 36.1–36.6; O2SAT 96–100
[2021-04-23] MEDS: SODIUM CHLORIDE 0.45% 1,000 ML 75 ML IV CONT (01:59)
[2021-04-23 06:59] LABS: Albumin Level 2.6 g/dL (3.5-5.1); Anion Gap 5 mmol/L (8-16); Blood Urea Nitrogen 36 mg/dL (9-20); Calcium 8.3 mg/dL (8.4-10.2); Carbon Dioxide 20 mmol/L (22-30); Chloride 135 mmol/L (98-107); Estimated CRCL calculation 42 ml/min; Estimated Glomerular Filt Rate 53; Glucose 88 mg/dL (75-110); Phosphorus 2.7 mg/dL (2.5-4.5); Potassium 3.7 mmol/L (3.4-5.0); Sodium 160 mmol/L (137-145)
[2021-04-23] MEDS: MEGESTROL ACETATE (*CHEMO) ORAL SUSP 40 MG/ML SYR 600 MG PO (08:08)
[2021-04-23] MEDS: TAMSULOSIN HCL 0.4 MG CAPSULE PO (08:09)
[2021-04-23] MEDS: THERAPEUTIC MULTIVITAMINS/MINERALS TAB (*BKC) 1 TABLET PO (08:09)
[2021-04-23] MEDS: FAMOTIDINE 20 MG TABLET PO ×2 (08:10→20:45)
[2021-04-23] MEDS: FINASTERIDE 5 MG TABLET PO (08:10)
[2021-04-23] MEDS: CALCIUM CARBONATE (OSCAL) 500 MG TABLET PO ×2 (08:10→16:51)
[2021-04-23] MEDS: ASCORBIC ACID 500 MG TABLET PO (08:10)
[2021-04-23] MEDS: POLYSACCHARIDE IRON COMPLEX 150 MG CAPSULE PO (08:10)
[2021-04-23 08:36] LABS: Glucose Point of Care 79 mg/dl (65-105)
[2021-04-23] MEDS: BUDESONIDE RESPULE NEB 0.5 MG/2 ML AMP 0.25 MG INHALATION ×2 (09:11→20:01)
[2021-04-23] MEDS: CALAMINE LOTION 120 ML BOTTLE 1 APPLIC TOPICAL (10:41)
--- NOTE | 2021-04-23 11:03 | PM.PNNEP ---
Progress Note: A&P Assessment and Plan (1) Acute hypernatremia: Code(s): E87.0 - Hyperosmolality and hypernatremia Status: Acute Assessment and Plan: the patient has hypernatremia. urine osmolality is pending still he is getting half-normal saline. His bicarbonate level is dropping from dilution. Will change to D5W with 75 of bicarb. Sodium level is correcting with an appropriate rate. (2) Acute kidney failure, unspecified: Code(s): N17.9 - Acute kidney failure, unspecified Status: Acute Assessment and Plan: The patient had an elevated creatinine. his creatinine has improved with hydration to 1.3. (3) Altered mental status: Code(s): R41.82 - Altered mental status, unspecified Status: Acute Assessment and Plan: He has baseline altered mental status. He is back to baseline now. (4) CVA (cerebral vascular accident): Code(s): I63.9 - Cerebral infarction, unspecified Status: Acute Assessment and Plan: He had a CT scan which shows no new infarcts. (5) Dementia: Qualifiers: Dementia type: unspecified type Dementia behavioral disturbance: without behavioral disturbance Qualified Code(s): F03.90 - Unspecified dementia without behavioral disturbance Code(s): F03.90 - Unspecified dementia without behavioral disturbance Status: Acute (6) Renal mass: Code(s): N28.89 - Other specified disorders of kidney and ureter Status: Acute Assessment and Plan: The patient has a questionable lesion in the right kidney on ultrasound. Judging from his comorbidities this can just be followed by his primary care person. Will let his PCP decide further follow-up Subjective Date/time seen: 04/23/21 11:03 Interval history: patient is sitting in semi follow his position. He is awake and interacts a little bit. Petterchak yes no questions. Exam Narrative: Exam Narrative: WDWN in NAD skin no rash head ncat lungs clear cor reg no rub abd BS+ nontender and soft ext no edema or cyanosis. Mucous membranes are less dry Objective Data Vital Signs Vital Signs: Vital Signs - 24 hr 04/22/21 16:00 04/22/21 19:28 04/22/21 20:00 Temperature 36.0 C L 36.3 C L Pulse Rate 79 91 91 Respiratory Rate 18 22 H 20 Blood Pressure 109/46 L 107/51 L Pulse Oximetry 100 100 100 04/22/21 22:00 04/23/21 06:00 04/23/21 09:05 Temperature 37.1 C 36.6 C Pulse Rate 91 85 72 Respiratory Rate 20 20 18 Blood Pressure 116/71 109/57 L Pulse Oximetry 100 100 97 04/23/21 09:15 Temperature Pulse Rate 74 Respiratory Rate 18 Blood Pressure Pulse Oximetry Intake/Output Intake/Output: Intake & Output 04/20/21 04/21/21 04/22/21 04/23/21 23:59 23:59 23:59 23:59 Intake Total 2290 2340 1220 Output Total 300 300 Balance 1989 2039 1220 Meds/Results Medications: Active Medications Generic Name Dose Route Start Last Admin Trade Name Freq PRN Reason Stop Dose Admin Ascorbic Acid 500 mg 04/21/21 09:00 04/23/21 08:10 Ascorbic Acid 500 Mg Tablet PO 500 mg DAILY DANNY Administration Budesonide 0.25 mg 04/21/21 08:00 04/23/21 09:11 Budesonide Respule Neb 0.5 Mg/2 Ml Amp INHALATION 0.25 mg Q12HRT DANNY Administration Calamine 1 applic 04/20/21 23:23 04/23/21 10:41 Calamine Lotion 120 Ml Bottle TOPICAL 1 applic QAM PRN Administration Itching Calcium Carbonate 500 mg 04/21/21 09:00 04/23/21 08:10 Calcium Carbonate (Oscal) 500 Mg Tablet PO 500 mg BID DANNY Administration Diphenhydramine HCl 25 mg 04/20/21 23:23 Diphenhydramine Hcl Cap 25 Mg Capsule PO Q6H PRN allergy symptoms Famotidine 20 mg 04/21/21 09:00 04/23/21 08:10 Famotidine 20 Mg Tablet PO 20 mg Q12HR DANNY Administration Finasteride 5 mg 04/21/21 09:00 04/23/21 08:10 Finasteride 5 Mg Tablet PO 5 mg DAILY DANNY Administration Sodium
[2021-04-23 12:14] LABS: Glucose Point of Care 108 mg/dl (65-105)
--- NOTE | 2021-04-23 13:29 | PM.IMPN ---
Progress Note: A&P Assessment and Plan (1) Acute hypernatremia: Code(s): E87.0 - Hyperosmolality and hypernatremia Status: Acute Assessment and Plan: ADMIT TO IMU BED REST CONTINUES TELEMETRY D5 HALF-NORMAL SALINE SERIAL BMP DOWN TRENDING ON REPEAT BMP SUPPORTIVE CARE (2) Altered mental status: Code(s): R41.82 - Altered mental status, unspecified Status: Acute Assessment and Plan: LIKELY SECONDARY TO ABOVE CONTINUE TO MONITOR SUPPORTIVE CARE 04/23/21 13:29 THIS IS A 80-YEAR-OLD MALE WITH PAST MEDICAL HISTORY SIGNIFICANT FOR ADVANCED DEMENTIA THE PATIENT RESIDES AT A [facility]-TERM HE HAD PRIEB VIEWS ADMISSION AND DISCHARGED TO OUR HOSPITAL DUE TO RASH GENERALIZED PATIENT WAS TREATED WITH STEROIDS TOPICAL LOTION AND SENT BACK TO [facility] ON ORAL ANTIBIOTICS. PATIENT WAS SUPPOSED TO GO FOR DERMATOLOGY APPOINTMENT TODAY WHEN THE ACOUSTICAL LOGGING ENGINEER NOTICE THE PATIENT SLUMPED OVER AND DROOLING AND INSTEAD CAME TO OUR EMERGENCY ROOM. PRELIMINARY WORKUP WAS SIGNIFICANT FOR A SODIUM OF 170. PATIENT IS UNABLE TO GIVE ANY HISTORY AT THE TIME OF MY VISIT. 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 04/21 unfortunately patient still is quite somnolent and unable to provide any review of symptom, patient is seen by Nephrology suspect patient is dehydrated and has free water deficiency patient is being gently hydrate will continue to monitor sodium, hope once patient sodium is close to normal patient to be able to provide more history, will continue to monitor once clinically stable will have a PT OT evaluate the patient. 04/22 today patient sodium is trending down today patient sodium is 161 compared 174 upon arrival, patient still quite somnolent unable to provide any review of symptom, patient is being gently hydrated, patient seen by Nephrology, once clinically stable patient will benefit from physical therapy, will continue to monitor. patient patient's sodium is trending down to 160 compared 171 upon arrival however patient CO2 is trending seen by bingo attendant and suspect most likely due to dilution and switch fluids D5W and added 75meq at the rate of 50 cc/hr, will continue to monitor, today patient is much more alert oriented his being fed his breakfast and states feeling better will continue present management monitor sodium and metabolic acidosis and further recommendation to follow, will have a PT OT evaluate the patient. (3) Dementia: Qualifiers: Dementia type: unspecified type Dementia behavioral disturbance: without behavioral disturbance Qualified Code(s): F03.90 - Unspecified dementia without behavioral disturbance Code(s): F03.90 - Unspecified dementia without behavioral disturbance Status: Acute Assessment and Plan: UNCHANGED (4) CVA (cerebral vascular accident): Code(s): I63.9 - Cerebral infarction, unspecified Status: Acute Assessment and Plan: CHRONIC (5) Rash and nonspecific skin eruption: Code(s): R21 - Rash and other nonspecific skin eruption Status: Acute Assessment and Plan: UNCHANGED SUPPORTIVE CARE Subjective Date/time seen: 04/23/21 13:29 THIS IS A 80-YEAR-OLD MALE WITH PAST MEDICAL HISTORY SIGNIFICANT FOR ADVANCED DEMENTIA THE PATIENT [facility] DUE TO RASH GENERALIZED PATIENT WAS TREATED WITH STEROIDS TOPICAL LOTION AND SENT BACK TO [facility] ON ORAL ANTIBIOTICS. PATIENT WAS SUPPOSED TO GO FOR DERMATOLOGY APPOINTMENT TODAY WHEN THE ACOUSTICAL LOGGING ENGINEER NOTICE THE PATIENT SLUMPED OVER AND DROOLING AND INSTEAD CAME TO OUR EMERGENCY ROOM. PRELIMINARY WORKUP WAS SIGNIFICANT FOR A SODIUM OF 170. PATIENT IS UNABLE TO GIVE ANY HISTORY AT THE TIME OF MY VISIT. CT OF THE HEAD WAS SIGNIFICANT FOR EXTENSIVE OLD INFARCT AND WHITE MAT
[2021-04-23 16:55] LABS: Glucose Point of Care 127 mg/dl (65-105)
[2021-04-24] VITALS (8 sets, daily range): BP systolic 108–162; BP diastolic 63–76; PULSE 83–93; RESP 16–22; TEMP 35.9–36.2; O2SAT 95–100
[2021-04-24 07:11] LABS: Albumin Level 2.6 g/dL (3.5-5.1); Anion Gap 4 mmol/L (8-16); Blood Urea Nitrogen 31 mg/dL (9-20); Calcium 8.8 mg/dL (8.4-10.2); Carbon Dioxide 23 mmol/L (22-30); Chloride 128 mmol/L (98-107); Estimated CRCL calculation 39 ml/min; Estimated Glomerular Filt Rate 58; Glucose 95 mg/dL (75-110); Potassium 3.8 mmol/L (3.4-5.0); Sodium 155 mmol/L (137-145)
[2021-04-24 08:27] LABS: Glucose Point of Care 92 mg/dl (65-105)
[2021-04-24] MEDS: BUDESONIDE RESPULE NEB 0.5 MG/2 ML AMP 0.25 MG INHALATION ×2 (08:35→19:52)
[2021-04-24] MEDS: CALAMINE LOTION 120 ML BOTTLE 1 APPLIC TOPICAL ×2 (08:59→21:00)
[2021-04-24] MEDS: MEGESTROL ACETATE (*CHEMO) ORAL SUSP 40 MG/ML SYR 600 MG PO (08:59)
[2021-04-24] MEDS: POLYSACCHARIDE IRON COMPLEX 150 MG CAPSULE PO (08:59)
[2021-04-24] MEDS: TAMSULOSIN HCL 0.4 MG CAPSULE PO (09:00)
[2021-04-24] MEDS: CALCIUM CARBONATE (OSCAL) 500 MG TABLET PO ×2 (09:01→20:54)
[2021-04-24] MEDS: ASCORBIC ACID 500 MG TABLET PO (09:01)
[2021-04-24] MEDS: FINASTERIDE 5 MG TABLET PO (09:01)
[2021-04-24] MEDS: THERAPEUTIC MULTIVITAMINS/MINERALS TAB (*BKC) 1 TABLET PO (09:01)
[2021-04-24] MEDS: FAMOTIDINE 20 MG TABLET PO ×2 (09:14→20:54)
--- NOTE | 2021-04-24 11:25 | PCNFU ---
Nutrition Follow-Up Complete: Increased protein needs related to stage II left buttock pressure ulcer as evidenced by estimated protein needs of 72-84 grams of protein per day. Goal: Patient to meet estimated nutritional needs. Patient is meeting goal. Will continue to meet current goal. Pt current nutrition is Regular Diet. Last recorded weight is 65.4 kg, recommend daily weights. Bowel Motility: Last BM: 04/23 Labs Reviewed: Alb 2.6, Na 155, K 3.8, GFR 58, BUN 31, Cr 1.2, Glu 95 Meds Noted: Vitamin C, Oscal, Proscar, Famotidine, Calamine, Flomax, Megestrol. Additional Notes: 100% of meals being consumed to plater helper skin repair. Patient reports having a good appetite and being hungry at meal times. Will continue to monitor weight and food intake while patient is admitted. Will send Yayo today for patient to try, providing 90 kcals and 2.5 gm protein. Monitor patient's labs, medications, weight, and oral intake every 3 days.
[2021-04-24 11:40] LABS: Glucose Point of Care 115 mg/dl (65-105)
--- NOTE | 2021-04-24 12:25 | PCNSR ---
On 04/24/21, the student, [Alie Molina ], provided care and completed [facility] documentation on this patient. I have reviewed the student's documentation and agree with the findings.
--- NOTE | 2021-04-24 15:02 | PM.IMPN ---
Progress Note: A&P Assessment and Plan (1) Acute hypernatremia: Code(s): E87.0 - Hyperosmolality and hypernatremia Status: Acute Assessment and Plan: ADMIT TO IMU BED REST CONTINUES TELEMETRY D5 HALF-NORMAL SALINE SERIAL BMP DOWN TRENDING ON REPEAT BMP SUPPORTIVE CARE (2) Altered mental status: Code(s): R41.82 - Altered mental status, unspecified Status: Acute Assessment and Plan: LIKELY SECONDARY TO ABOVE CONTINUE TO MONITOR SUPPORTIVE CARE 04/24/21 15:02 THIS IS A 80-YEAR-OLD MALE WITH PAST MEDICAL HISTORY SIGNIFICANT FOR ADVANCED DEMENTIA THE PATIENT RESIDES AT A RESIDENTIAL HE HAD PRIEB VIEWS ADMISSION AND DISCHARGED TO OUR HOSPITAL DUE TO RASH GENERALIZED PATIENT WAS TREATED WITH STEROIDS TOPICAL LOTION AND SENT BACK TO RESIDENTIAL ON ORAL ANTIBIOTICS. PATIENT WAS SUPPOSED TO GO FOR DERMATOLOGY APPOINTMENT TODAY WHEN THE WOOD MILLING MACHINE HAND NOTICE THE PATIENT SLUMPED OVER AND DROOLING AND INSTEAD CAME TO OUR EMERGENCY ROOM. PRELIMINARY WORKUP WAS SIGNIFICANT FOR A SODIUM OF 170. PATIENT IS UNABLE TO GIVE ANY HISTORY AT THE TIME OF MY VISIT. 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 04/21 unfortunately patient still is quite somnolent and unable to provide any review of symptom, patient is seen by Nephrology suspect patient is dehydrated and has free water deficiency patient is being gently hydrate will continue to monitor sodium, hope once patient sodium is close to normal patient to be able to provide more history, will continue to monitor once clinically stable will have a PT OT evaluate the patient. 04/22 today patient sodium is trending down today patient sodium is 161 compared 174 upon arrival, patient still quite somnolent unable to provide any review of symptom, patient is being gently hydrated, patient seen by Nephrology, once clinically stable patient will benefit from physical therapy, will continue to monitor. patient patient's sodium is trending down to 160 compared 171 upon arrival however patient CO2 is trending seen by per diem interpreter and suspect most likely due to dilution and switch fluids D5W and added 75meq at the rate of 50 cc/hr, will continue to monitor, today patient is much more alert oriented his being fed his breakfast and states feeling better will continue present management monitor sodium and metabolic acidosis and further recommendation to follow, will have a PT OT evaluate the patient. 04/24 today patient's sodium is trending down to 155 compared 171 upon arrival however patient's CO2 is trending most likely dilution seen by nephrology and and bicarb states will continue to monitor, patient clinically and mentally has improved substantially, will have a PT OT evaluate the patient, patient will have benefit going into acute rehab as he is quite debilitated with hyponatremia. (3) Dementia: Qualifiers: Dementia type: unspecified type Dementia behavioral disturbance: without behavioral disturbance Qualified Code(s): F03.90 - Unspecified dementia without behavioral disturbance Code(s): F03.90 - Unspecified dementia without behavioral disturbance Status: Acute Assessment and Plan: UNCHANGED (4) CVA (cerebral vascular accident): Code(s): I63.9 - Cerebral infarction, unspecified Status: Acute Assessment and Plan: CHRONIC (5) Rash and nonspecific skin eruption: Code(s): R21 - Rash and other nonspecific skin eruption Status: Acute Assessment and Plan: UNCHANGED SUPPORTIVE CARE Subjective Date/time seen: 04/24/21 15:02 THIS IS A 80-YEAR-OLD MALE WITH PAST MEDICAL HISTORY SIGNIFICANT FOR ADVANCED DEMENTIA THE PATIENT RESIDES AT [facility] TO [facility] HOSPITAL DUE TO RASH GENERALIZED PATIENT WAS TREATED WITH STEROIDS TOPICAL LOTION AND SE
--- NOTE | 2021-04-24 15:33 | PM.PNNEP ---
Progress Note: A&P Assessment and Plan (1) Acute hypernatremia: Code(s): E87.0 - Hyperosmolality and hypernatremia Status: Acute Assessment and Plan: due to severe free water deficit likely from poor oral fluid intake current on D5W with 75mEq of HCO3 to provide free water as well as treat acidosis sodium appears to be correcting at an appropriate rate follow trend of sodium levels (2) Acute kidney failure, unspecified: Code(s): N17.9 - Acute kidney failure, unspecified Status: Acute Assessment and Plan: likely secondary to volume depletion creatinine improving with IVF hydration follow trend (3) Altered mental status: Code(s): R41.82 - Altered mental status, unspecified Status: Acute Assessment and Plan: has baseline dementia clinically better at this time follow mentation (4) Renal mass: Code(s): N28.89 - Other specified disorders of kidney and ureter Status: Acute Assessment and Plan: questionable lesion in the right kidney on ultrasound unclear how aggressive to be given his baseline comorbidities suggest follow-up as an outpatient by PCP Will continue to follow. Subjective Date/time seen: 04/24/21 15:33 Chart reviewed -- per nursing report, mentation has improved since admission; able to nod to yes/no questions; no apparent distress noted at the time of my visit; no events/issues overnight or earlier this morning; sodium slowly improving with interventions to date. Exam Narrative: Exam Narrative: General: elderly male in NAD Heart: normal S1 and S2; no rub Lungs: clear to auscultation Abdomen: soft, nontender, nondistended, positive bowel sounds Extremities: no cyanosis or clubbing; no edema Skin: warm and dry Objective Data Vital Signs Vital Signs: Vital Signs Temp Pulse Resp BP Pulse Ox 04/24/21 14:00 36.1 C L 90 16 108/76 100 04/24/21 08:35 83 18 04/24/21 08:00 96 04/24/21 06:00 35.9 C L 84 16 162/73 H 96 04/23/21 22:00 36.6 C 92 16 102/67 98 04/23/21 20:16 92 20 96 04/23/21 20:10 92 16 98 04/23/21 20:05 96 24 H 96 Intake/Output Intake/Output: Intake & Output 0704/22/21 04/23/21 04/24/21 23:59 23:59 23:59 23:59 Intake Total 2290 2340 1860 750 Output Total 300 300 Balance 1989 2039 186 750 Meds/Results Medications: Active Medications Generic Name Dose Route Start Last Admin Trade Name Freq PRN Reason Stop Dose Admin Ascorbic Acid 500 mg 04/21/21 09:00 04/24/21 09:01 Ascorbic Acid 500 Mg Tablet PO 500 mg DAILY DANNY Administration Budesonide 0.25 mg 04/21/21 08:00 04/24/21 08:35 Budesonide Respule Neb 0.5 Mg/2 Ml Amp INHALATION 0.25 mg Q12HRT DANNY Administration Calamine 1 applic 04/20/21 23:23 04/24/21 08:59 Calamine Lotion 120 Ml Bottle TOPICAL 1 applic QAM PRN Administration Itching Calcium Carbonate 500 mg 04/21/21 09:00 04/24/21 09:01 Calcium Carbonate (Oscal) 500 Mg Tablet PO 500 mg BID DANNY Administration Diphenhydramine HCl 25 mg 04/20/21 23:23 Diphenhydramine Hcl Cap 25 Mg Capsule PO Q6H PRN allergy symptoms Famotidine 20 mg 04/21/21 09:00 04/24/21 09:14 Famotidine 20 Mg Tablet PO 20 mg Q12HR DANNY Administration Finasteride 5 mg 04/21/21 09:00 04/24/21 09:01 Finasteride 5 Mg Tablet PO 5 mg DAILY DANNY Administration Sodium Bicarbonate 75 meq/ 1,075 mls @ 50 mls/hr 04/23/21 08:25 04/24/21 09:45 Dextrose IV CONT 50 mls/hr .[id number] DANNY Infusion Megestrol Acetate 600 mg 04/22/21 09:00 04/24/21 08:59 Megestrol Acetate (*Chemo) Oral Susp 40 Mg/Ml Syr PO 600 mg QAM DANNY Administration Miconazole Nitrate 1 applic 04/21/21 09:00 04/24/21 09:01 Miconazole 2% Antifungal Ointment 56 Gm TOPICAL 1 applic Q12HR DANNY Administration Multivitamins/Calcium 1 tablet 04/21/21 09:00 04/24/21 09:01 Therapeut
--- NOTE | 2021-04-24 15:33 | P.PNNP_ITS ---
Progress Note: A&P Assessment and Plan (1) Acute hypernatremia: Code(s): E87.0 - Hyperosmolality and hypernatremia Status: Acute Assessment and Plan: * due to severe free water deficit likely from poor oral fluid intake * current on D5W with 75mEq of HCO3 to provide free water as well as treat acidosis * sodium appears to be correcting at an appropriate rate * follow trend of sodium levels (2) Acute kidney failure, unspecified: Code(s): N17.9 - Acute kidney failure, unspecified Status: Acute Assessment and Plan: * likely secondary to volume depletion * creatinine improving with IVF hydration * follow trend (3) Altered mental status: Code(s): R41.82 - Altered mental status, unspecified Status: Acute Assessment and Plan: * has baseline dementia * clinically better at this time * follow mentation (4) Renal mass: Code(s): N28.89 - Other specified disorders of kidney and ureter Status: Acute Assessment and Plan: * questionable lesion in the right kidney on ultrasound * unclear how aggressive to be given his baseline comorbidities * suggest follow-up as an outpatient by PCP Will continue to follow. Subjective Date/time seen: 04/24/21 15:33 Chart reviewed -- per nursing report, mentation has improved since admission; able to nod to yes/no questions; no apparent distress noted at the time of my visit; no events/issues overnight or earlier this morning; sodium slowly impr oving with interventions to date. Exam Narrative: Exam Narrative: General: elderly male in NAD Heart: normal S1 and S2; no rub Lungs: clear to auscultation Abdomen: soft, nontender, nondistended, positive bowel sounds Extremities: no cyanosis or clubbing; no edema Skin: warm and dry Objective Data Vital Signs Vital Signs: Vital Signs Temp Pulse Resp BP Pulse Ox 04/24/21 14:00 36.1 C L 90 16 108/76 100 04/24/21 08:35 83 18 04/24/21 08:00 96 04/24/21 06:00 35.9 C L 84 16 162/73 H 96 04/23/21 22:00 36.6 C 92 16 102/67 98 04/23/21 20:16 92 20 96 04/23/21 20:10 92 16 98 04/23/21 20:05 96 24 H 96 Intake/Output Intake/Output: Intake & Output 04/21/21 04/22/21 04/23/21 04/24/21 23:59 23:59 23:59 23:59 Intake Total 2290 2340 1860 750 Output Total 300 300 Balance 1989 2039 1860 750 Meds/Results Medications: Active Medications Generic Name Dose Route Start Last Admin Trade Name Freq PRN Reason Stop Dose Admin Ascorbic Acid 500 mg 04/21/21 09:00 04/24/21 09:01 Ascorbic Acid 500 Mg Tablet PO 500 mg DAILY DANNY Administration Budesonide 0.25 mg 04/21/21 08:00 04/24/21 08:35 Budesonide Respule Neb 0.5 Mg/2 Ml Amp INHALATION 0.25 mg Q12HRT DANNY Administration Calamine 1 applic 04/20/21 23:23 04/24/21 08:59 Calamine Lotion 120 Ml Bottle TOPICAL 1 applic QAM PRN Administration Itching Calcium Carbonate 500 mg 04/21/21 09:00 04/24/21 09:01 Calcium Carbonate (Oscal) 500 Mg Tablet PO 500 mg BID DANNY Administration Diphenhydramine HCl 25 mg 04/20/21 23:23 Diphenhydramine Hcl Cap 25 Mg Capsule PO Q6H
[2021-04-24 18:07] LABS: Glucose Point of Care 112 mg/dl (65-105)
[2021-04-24 22:35] LABS: Glucose Point of Care 126 mg/dl (65-105)
[2021-04-25 06:00] VITALS: BP 129/90; PULSE 89; RESP 18; TEMP 36.2; O2SAT 99
[2021-04-25 07:10] LABS: Albumin Level 2.4 g/dL (3.5-5.1); Anion Gap 2 mmol/L (8-16); Blood Urea Nitrogen 31 mg/dL (9-20); Calcium 8.5 mg/dL (8.4-10.2); Carbon Dioxide 25 mmol/L (22-30); Chloride 125 mmol/L (98-107); Estimated CRCL calculation 46 ml/min; Estimated Glomerular Filt Rate > 60; Glucose 96 mg/dL (75-110); Phosphorus 2.6 mg/dL (2.5-4.5); Potassium 3.4 mmol/L (3.4-5.0); Sodium 152 mmol/L (137-145)
[2021-04-25 07:44] LABS: Glucose Point of Care 83 mg/dl (65-105)
[2021-04-25] MEDS: ASCORBIC ACID 500 MG TABLET PO (09:14)
[2021-04-25] MEDS: FINASTERIDE 5 MG TABLET PO (09:14)
[2021-04-25] MEDS: POLYSACCHARIDE IRON COMPLEX 150 MG CAPSULE PO (09:14)
[2021-04-25] MEDS: THERAPEUTIC MULTIVITAMINS/MINERALS TAB (*BKC) 1 TABLET PO (09:14)
[2021-04-25] MEDS: TAMSULOSIN HCL 0.4 MG CAPSULE PO (09:14)
[2021-04-25] MEDS: CALCIUM CARBONATE (OSCAL) 500 MG TABLET PO ×2 (09:14→17:48)
[2021-04-25] MEDS: MEGESTROL ACETATE (*CHEMO) ORAL SUSP 40 MG/ML SYR 600 MG PO (09:14)
[2021-04-25] MEDS: FAMOTIDINE 20 MG TABLET PO ×2 (09:14→20:17)
--- NOTE | 2021-04-25 09:39 | PM.IMPN ---
Progress Note: A&P Assessment and Plan (1) Acute hypernatremia: Code(s): E87.0 - Hyperosmolality and hypernatremia Status: Acute Assessment and Plan: nephrolog. admission Na level of 174. continues to improve. on D5w with bicarbonate 75 meq. per nephrology. (2) Altered mental status: Code(s): R41.82 - Altered mental status, unspecified Status: Acute Assessment and Plan: LIKELY SECONDARY TO ABOVE CONTINUE TO MONITOR SUPPORTIVE CARE 04/24/21 15:02 THIS IS A 80-YEAR-OLD MALE WITH PAST MEDICAL HISTORY SIGNIFICANT FOR ADVANCED DEMENTIA THE PATIENT RESIDES AT [facility] HE HAD PRIEB VIEWS ADMISSION AND DISCHARGED TO OUR HOSPITAL DUE TO RASH GENERALIZED PATIENT WAS TREATED WITH STEROIDS TOPICAL LOTION AND SENT [facility] ON ORAL ANTIBIOTICS. PATIENT WAS SUPPOSED TO GO FOR DERMATOLOGY APPOINTMENT TODAY WHEN THE [employer] WORKER NOTICE THE PATIENT SLUMPED OVER AND DROOLING AND INSTEAD CAME TO OUR EMERGENCY ROOM. PRELIMINARY WORKUP WAS SIGNIFICANT FOR A SODIUM OF 170. PATIENT IS UNABLE TO GIVE ANY HISTORY AT THE TIME OF MY VISIT. 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 04/21 unfortunately patient still is quite somnolent and unable to provide any review of symptom, patient is seen by Nephrology suspect patient is dehydrated and has free water deficiency patient is being gently hydrate will continue to monitor sodium, hope once patient sodium is close to normal patient to be able to provide more history, will continue to monitor once clinically stable will have a PT OT evaluate the patient. 04/22 today patient sodium is trending down today patient sodium is 161 compared 174 upon arrival, patient still quite somnolent unable to provide any review of symptom, patient is being gently hydrated, patient seen by Nephrology, once clinically stable patient will benefit from physical therapy, will continue to monitor. patient patient's sodium is trending down to 160 compared 171 upon arrival however patient CO2 is trending seen by shear operator helper and suspect most likely due to dilution and switch fluids D5W and added 75meq at the rate of 50 cc/hr, will continue to monitor, today patient is much more alert oriented his being fed his breakfast and states feeling better will continue present management monitor sodium and metabolic acidosis and further recommendation to follow, will have a PT OT evaluate the patient. 04/24 today patient's sodium is trending down to 155 compared 171 upon arrival however patient's CO2 is trending most likely dilution seen by nephrology and and bicarb states will continue to monitor, patient clinically and mentally has improved substantially, will have a PT OT evaluate the patient, patient will have benefit going into acute rehab as he is quite debilitated with hyponatremia. 04/25 sodium level down to 152 continues to improve with bicarb and D5 water infusion. PT OT to evaluate. Likely needs rehabilitation. Hypernatremia slowly improving. Renal dysfunction has resolved. Mild leukocytosis persist. No signs of infection. Continue to monitor mental status. Right renal mass follow-up as an outpatient basis recheck labs in a.m. (3) Dementia: Qualifiers: Dementia behavioral disturbance: without behavioral disturbance Dementia type: unspecified type Qualified Code(s): F03.90 - Unspecified dementia without behavioral disturbance Code(s): F03.90 - Unspecified dementia without behavioral disturbance Status: Acute Assessment and Plan: UNCHANGED (4) CVA (cerebral vascular accident): Code(s): I63.9 - Cerebral infarction, unspecified Status: Acute Assessment and Plan: CHRONIC (5) Rash and nonspecific skin eruption: Code(s): R21 - Rash and other nonspecific skin eruption Status: Acute Assessment and Plan:
--- NOTE | 2021-04-25 10:51 | P.PNNP_ITS ---
Progress Note: A&P Assessment and Plan (1) Acute hypernatremia: Code(s): E87.0 - Hyperosmolality and hypernatremia Status: Acute Assessment and Plan: * due to severe free water deficit likely from poor oral fluid intake * currently on D5W with 75mEq of HCO3 to provide free water as well as treat acidosis * sodium appears to be correcting at an appropriate rate * hopefully wean off IVFs in another 24 hours - however, I worry if he will be able to keep up with his ongoing needs by oral intake alone * follow trend of sodium levels (2) Acute kidney failure, unspecified: Code(s): N17.9 - Acute kidney failure, unspecified Status: Acute Assessment and Plan: * resolving/resolved * likely secondary to volume depletion * creatinine improving with IVF hydration * follow trend (3) Altered mental status: Code(s): R41.82 - Altered mental status, unspecified Status: Acute Assessment and Plan: * has baseline dementia * clinically better at this time * follow mentation (4) Renal mass: Code(s): N28.89 - Other specified disorders of kidney and ureter Status: Acute Assessment and Plan: * questionable lesion in the right kidney on ultrasound * unclear how aggressive to be given his baseline comorbidities * suggest follow-up as an outpatient by PCP Will continue to follow. Subjective Date/time seen: 04/25/21 10:51 Sodium level continues to improve with ongoing therapy; renal dysfunction has resolved; no other issues/problems to report at this time; no apparent distress voiced; no events overnight or earlier this AM. Exam Narrative: Exam Narrative: General: elderly male in NAD Heart: normal S1 and S2; no rub Lungs: clear to auscultation Abdomen: soft, nontender, nondistended, positive bowel sounds Extremities: no cyanosis or clubbing; no edema Skin: warm and intact Objective Data Vital Signs Vital Signs: Vital Signs Temp Pulse Resp BP Pulse Ox 04/25/21 06:00 36.2 C L 89 18 129/90 99 04/24/21 22:00 36.2 C L 91 18 112/63 95 04/24/21 20:05 93 20 04/24/21 20:00 91 18 95 04/24/21 19:55 92 22 H 04/24/21 14:00 36.1 C L 90 16 108/76 100 Intake/Output Intake/Output: Intake & Output 04/22/21 04/23/21 04/24/21 04/25/21 23:59 23:59 23:59 23:59 Intake Total 2340 1860 2185 140 Output Total 300 300 Balance 2040 1860 1885 140 Meds/Results Medications: Active Medications Generic Name Dose Route Start Last Admin Trade Name Freq PRN Reason Stop Dose Admin Ascorbic Acid 500 mg 04/21/21 09:00 04/25/21 09:14 Ascorbic Acid 500 Mg Tablet PO 500 mg DAILY [facility] Administration Budesonide 0.25 mg 04/21/21 08:00 04/25/21 09:42 Budesonide Respule Neb 0.5 Mg/2 Ml Amp INHALATION Not Given Q12HRT [facility] Calamine 1 applic 04/20/21 23:23 04/24/21 21:00 Calamine Lotion 120 Ml Bottle TOPICAL 1 applic QAM PRN Administration Itching Calcium Carbonate 500 mg 04/21/21 09:00 04/25/21 09:14 Calcium Carbonate (Oscal) 500 Mg Tablet PO 500 mg BID DANNY Administration Diphenhydramine HCl 25 mg 04/20/21 23:23 Diphenhydramine Hcl Cap 25 Mg Capsule PO
--- NOTE | 2021-04-25 10:51 | PM.PNNEP ---
Progress Note: A&P Assessment and Plan (1) Acute hypernatremia: Code(s): E87.0 - Hyperosmolality and hypernatremia Status: Acute Assessment and Plan: due to severe free water deficit likely from poor oral fluid intake currently on D5W with 75mEq of HCO3 to provide free water as well as treat acidosis sodium appears to be correcting at an appropriate rate hopefully wean off IVFs in another 24 hours - however, I worry if he will be able to keep up with his ongoing needs by oral intake alone follow trend of sodium levels (2) Acute kidney failure, unspecified: Code(s): N17.9 - Acute kidney failure, unspecified Status: Acute Assessment and Plan: resolving/resolved likely secondary to volume depletion creatinine improving with IVF hydration follow trend (3) Altered mental status: Code(s): R41.82 - Altered mental status, unspecified Status: Acute Assessment and Plan: has baseline dementia clinically better at this time follow mentation (4) Renal mass: Code(s): N28.89 - Other specified disorders of kidney and ureter Status: Acute Assessment and Plan: questionable lesion in the right kidney on ultrasound unclear how aggressive to be given his baseline comorbidities suggest follow-up as an outpatient by PCP Will continue to follow. Subjective Date/time seen: 04/25/21 10:51 Sodium level continues to improve with ongoing therapy; renal dysfunction has resolved; no other issues/problems to report at this time; no apparent distress voiced; no events overnight or earlier this AM. Exam Narrative: Exam Narrative: General: elderly male in NAD Heart: normal S1 and S2; no rub Lungs: clear to auscultation Abdomen: soft, nontender, nondistended, positive bowel sounds Extremities: no cyanosis or clubbing; no edema Skin: warm and intact Objective Data Vital Signs Vital Signs: Vital Signs Temp Pulse Resp BP Pulse Ox 04/25/21 06:00 36.2 C L 89 18 129/90 99 04/24/21 22:00 36.2 C L 91 18 112/63 95 04/24/21 20:05 93 20 04/24/21 20:00 91 18 95 04/24/21 19:55 92 22 H 04/24/21 14:00 36.1 C L 90 16 108/76 100 Intake/Output Intake/Output: Intake & Output 07/08/0304/23/21 04/24/21 04/25/21 23:59 23:59 23:59 23:59 Intake Total 2340 1860 2185 140 Output Total 300 300 Balance 2040 1860 1885 140 Meds/Results Medications: Active Medications Generic Name Dose Route Start Last Admin Trade Name Freq PRN Reason Stop Dose Admin Ascorbic Acid 500 mg 04/21/21 09:00 04/25/21 09:14 Ascorbic Acid 500 Mg Tablet PO 500 mg DAILY [facility]ANNY Administration Budesonide 0.25 mg 04/21/21 08:00 04/25/21 09:42 Budesonide Respule Neb 0.5 Mg/2 Ml Amp INHALATION Not Given Q12HRT [facility] Calamine 1 applic 04/20/21 23:23 04/24/21 21:00 Calamine Lotion 120 Ml Bottle TOPICAL 1 applic QAM PRN Administration Itching Calcium Carbonate 500 mg 04/21/21 09:00 04/25/21 09:14 Calcium Carbonate (Oscal) 500 Mg Tablet PO 500 mg BID DANNY Administration Diphenhydramine HCl 25 mg 04/20/21 23:23 Diphenhydramine Hcl Cap 25 Mg Capsule PO Q6H PRN allergy symptoms Famotidine 20 mg 04/21/21 09:00 04/25/21 09:14 Famotidine 20 Mg Tablet PO 20 mg Q12HR DANNY Administration Finasteride 5 mg 04/21/21 09:00 04/25/21 09:14 Finasteride 5 Mg Tablet PO 5 mg DAILY DANNY Administration Sodium Bicarbonate 75 meq/ 1,075 mls @ 50 mls/hr 04/23/21 08:25 04/25/21 09:13 Dextrose IV CONT 50 mls/hr .[id number] DANNY Administration Megestrol Acetate 600 mg 04/22/21 09:00 04/25/21 09:14 Megestrol Acetate (*Chemo) Oral Susp 40 Mg/Ml Syr PO 600 mg QAM DANNY Administration Miconazole Nitrate 1 applic 04/21/21 09:00 04/25/21 09:15 Miconazole 2% Antifungal Ointment 56 Gm TOPICAL 1 applic Q12HR DANNY Administration Multivitamins/Calcium 1 tablet 04/21/21
[2021-04-25 11:53] LABS: Glucose Point of Care 108 mg/dl (65-105)
[2021-04-25 14:00] VITALS: BP 112/63; PULSE 94; RESP 16; TEMP 36.4; O2SAT 99
[2021-04-25 18:09] LABS: Glucose Point of Care 137 mg/dl (65-105)
[2021-04-25 21:05] LABS: Glucose Point of Care 126 mg/dl (65-105)
[2021-04-25 22:00] VITALS: BP 95/58; PULSE 88; RESP 20; TEMP 36.2; O2SAT 99
[2021-04-26] VITALS (7 sets, daily range): BP systolic 112–130; BP diastolic 66–87; PULSE 84–89; RESP 16–22; TEMP 36.1–37.1; O2SAT 100
[2021-04-26 07:09] LABS: Albumin Level 2.4 g/dL (3.5-5.1); Anion Gap 2 mmol/L (8-16); Blood Urea Nitrogen 28 mg/dL (9-20); Calcium 8.3 mg/dL (8.4-10.2); Carbon Dioxide 20 mmol/L (22-30); Chloride 121 mmol/L (98-107); Estimated CRCL calculation 57 ml/min; Estimated Glomerular Filt Rate > 60; Glucose 83 mg/dL (75-110); Phosphorus 2.9 mg/dL (2.5-4.5); Potassium 4.6 mmol/L (3.4-5.0); Sodium 143 mmol/L (137-145)
[2021-04-26] MEDS: BUDESONIDE RESPULE NEB 0.5 MG/2 ML AMP 0.25 MG INHALATION ×2 (07:57→20:14)
[2021-04-26 08:10] LABS: Basophils Percent Auto 0.1 % (0.2-1.2); Hematocrit 38.2 % (42.0-52.0); Hemoglobin 11.7 g/dL (14.0-18.0); Immature Granulocyte Absolute 0.28 K/mm3 (0.00-0.031); Immature Granulocyte Percent A 2.1 % (0-0.5); Lymphocytes Absolute Auto 3.44 K/mm3 (0.9-3.2); Lymphocytes Percent Auto 25.5 % (18.3-44.2); Mean Corpuscular HGB Conc 30.6 g/dl (32-36); Mean Corpuscular Hemoglobin 30.5 pg (26-34); Mean Corpuscular Volume 99.7 fl (80-100); Mean Platelet Volume 11.9 fl (7.4-10.4); Monocytes Absolute Auto 0.6 K/mm3 (0.1-0.6); Monocytes Percent Auto 4.5 % (2.6-8.5); Neutrophils Absolute Auto 8.2 K/mm3 (1.3-6.7); Neutrophils Percent Auto 60.8 % (45.5-73.1); Platelet Count Result 207 k/mm3 (150-375); Red Blood Count 3.83 M/mm3 (4.6-6.20); Red Cell Distribution Width 15.3 % (11.5-14.5); White Blood Count 13.5 K/mm3 (4.5-10.0)
[2021-04-26 08:48] LABS: Glucose Point of Care 85 mg/dl (65-105)
[2021-04-26] MEDS: FAMOTIDINE 20 MG TABLET PO ×2 (09:04→21:20)
[2021-04-26] MEDS: ASCORBIC ACID 500 MG TABLET PO (09:04)
[2021-04-26] MEDS: POLYSACCHARIDE IRON COMPLEX 150 MG CAPSULE PO (09:04)
[2021-04-26] MEDS: CALCIUM CARBONATE (OSCAL) 500 MG TABLET PO ×2 (09:04→16:20)
[2021-04-26] MEDS: THERAPEUTIC MULTIVITAMINS/MINERALS TAB (*BKC) 1 TABLET PO (09:04)
[2021-04-26] MEDS: TAMSULOSIN HCL 0.4 MG CAPSULE PO (09:05)
[2021-04-26] MEDS: FINASTERIDE 5 MG TABLET PO (09:05)
[2021-04-26] MEDS: MEGESTROL ACETATE (*CHEMO) ORAL SUSP 40 MG/ML SYR 600 MG PO (09:05)
[2021-04-26 11:46] LABS: Glucose Point of Care 120 mg/dl (65-105)
--- NOTE | 2021-04-26 14:49 | PM.IMPN ---
Progress Note: A&P Assessment and Plan (1) Acute hypernatremia: Code(s): E87.0 - Hyperosmolality and hypernatremia Status: Acute Assessment and Plan: nephrolog. admission Na level of 174. continues to improve. on D5w with bicarbonate 75 meq. per nephrology. (2) Altered mental status: Code(s): R41.82 - Altered mental status, unspecified Status: Acute Assessment and Plan: LIKELY SECONDARY TO ABOVE CONTINUE TO MONITOR SUPPORTIVE CARE 04/24/21 15:02 THIS IS A 80-YEAR-OLD MALE WITH PAST MEDICAL HISTORY SIGNIFICANT FOR ADVANCED DEMENTIA THE PATIENT RESIDES AT A [facility] HE HAD PRIEB VIEWS ADMISSION AND DISCHARGED TO OUR HOSPITAL DUE TO RASH GENERALIZED PATIENT WAS TREATED WITH STEROIDS TOPICAL LOTION AND SENT BACK TO [facility] ON [facility]AL ANTIBIOTICS. PATIENT WAS SUPPOSED TO GO FOR DERMATOLOGY APPOINTMENT TODAY WHEN THE [employer] BLOCKER NOTICE THE PATIENT SLUMPED OVER AND DROOLING AND INSTEAD CAME TO OUR EMERGENCY ROOM. PRELIMINARY WORKUP WAS SIGNIFICANT FOR A SODIUM OF 170. PATIENT IS UNABLE TO GIVE ANY HISTORY AT THE TIME OF MY VISIT. 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 04/21 unfortunately patient still is quite somnolent and unable to provide any review of symptom, patient is seen by Nephrology suspect patient is dehydrated and has free water deficiency patient is being gently hydrate will continue to monitor sodium, hope once patient sodium is close to normal patient to be able to provide more history, will continue to monitor once clinically stable will have a PT OT evaluate the patient. 04/22 today patient sodium is trending down today patient sodium is 161 compared 174 upon arrival, patient still quite somnolent unable to provide any review of symptom, patient is being gently hydrated, patient seen by Nephrology, once clinically stable patient will benefit from physical therapy, will continue to monitor. patient patient's sodium is trending down to 160 compared 171 upon arrival however patient CO2 is trending seen by real estate investment analyst and suspect most likely due to dilution and switch fluids D5W and added 75meq at the rate of 50 cc/hr, will continue to monitor, today patient is much more alert oriented his being fed his breakfast and states feeling better will continue present management monitor sodium and metabolic acidosis and further recommendation to follow, will have a PT OT evaluate the patient. 04/24 today patient's sodium is trending down to 155 compared 171 upon arrival however patient's CO2 is trending most likely dilution seen by nephrology and and bicarb states will continue to monitor, patient clinically and mentally has improved substantially, will have a PT OT evaluate the patient, patient will have benefit going into acute rehab as he is quite debilitated with hyponatremia. 04/25 sodium level down to 152 continues to improve with bicarb and D5 water infusion. PT OT to evaluate. Likely needs rehabilitation. Hypernatremia slowly improving. Renal dysfunction has resolved. Mild leukocytosis persist. No signs of infection. Continue to monitor mental status. Right renal mass follow-up as an outpatient basis recheck labs in a.m. 04/26 sodium level has normalized today. Admission sodium level of 174. Nephrology on board on IV fluids per Nephrology renal failure has resolved. Will get PT OT involved. Likely need rehabilitation. Mild leukocytosis persist however no signs of infection currently seen. monitor his mental status slowly improving. Does have underlying dementia (3) Dementia: Qualifiers: Dementia type: unspecified type Dementia behavioral disturbance: without behavioral disturbance Qualified Code(s): F03.90 - Unspecified dementia without behavioral disturbance Code(s): F03.90 - Unspecified dementia without behavioral disturbance Status: Ac
--- NOTE | 2021-04-26 16:19 | PM.PNNEP ---
Progress Note: A&P Assessment and Plan (1) Acute hypernatremia: Code(s): E87.0 - Hyperosmolality and hypernatremia Status: Acute Assessment and Plan: due to severe free water deficit likely from poor oral fluid intake was on D5W with 75mEq of HCO3 to provide free water as well as treat acidosis -- will d/c today follow trend of sodium levels (2) Acute kidney failure, unspecified: Code(s): N17.9 - Acute kidney failure, unspecified Status: Acute Assessment and Plan: resolving/resolved likely secondary to volume depletion creatinine improved s/p IVF hydration follow trend (3) Altered mental status: Code(s): R41.82 - Altered mental status, unspecified Status: Acute Assessment and Plan: has baseline dementia clinically better at this time follow mentation (4) Renal mass: Code(s): N28.89 - Other specified disorders of kidney and ureter Status: Acute Assessment and Plan: questionable lesion in the right kidney on ultrasound unclear how aggressive to be given his baseline comorbidities suggest follow-up as an outpatient by PCP Will continue to follow. Subjective Date/time seen: 04/26/21 16:19 No new issues or problems per nursing staff; on/off confusion noted; no events overnight or earlier this AM; no apparent distress seen; no other complaints voiced. Exam Narrative: Exam Narrative: General: elderly male in NAD Heart: normal S1 and S2; no rub Lungs: clear to auscultation Abdomen: soft, nontender, nondistended, positive bowel sounds Extremities: no cyanosis or clubbing; no edema Skin: no rash or nodules Objective Data Vital Signs Vital Signs: Vital Signs Temp Pulse Resp BP Pulse Ox 04/26/21 14:00 37.1 C 86 16 112/66 100 04/26/21 08:08 86 20 04/26/21 07:58 84 22 H 04/26/21 06:00 36.3 C L 84 22 H 125/67 100 04/25/21 22:00 36.2 C L 88 20 95/58 L 99 Intake/Output Intake/Output: Intake & Output 04/23/21 04/24/21 04/25/21 04/26/21 23:59 23:59 23:59 23:59 Intake Total 1860 2185 820 1685 Output Total 300 Balance 1860 8847 341 1969 Meds/Results Medications: Active Medications Generic Name Dose Route Start Last Admin Trade Name Freq PRN Reason Stop Dose Admin Ascorbic Acid 500 mg 04/21/21 09:00 04/26/21 09:04 Ascorbic Acid 500 Mg Tablet PO 500 mg DAILY [facility] Administration Budesonide 0.25 mg 04/21/21 08:00 04/26/21 07:57 Budesonide Respule Neb 0.5 Mg/2 Ml Amp INHALATION 0.25 mg Q12HRT [facility] Administration Calamine 1 applic 04/20/21 23:23 04/24/21 21:00 Calamine Lotion 120 Ml Bottle TOPICAL 1 applic QAM PRN Administration Itching Calcium Carbonate 500 mg 04/21/21 09:00 04/26/21 09:04 Calcium Carbonate (Oscal) 500 Mg Tablet PO 500 mg BID [facility]AN[facility] Administration Diphenhydramine HCl 25 mg 04/20/21 23:23 Diphenhydramine Hcl Cap 25 Mg Capsule PO Q6H PRN allergy symptoms Famotidine 20 mg 04/21/21 09:00 04/26/21 09:04 Famotidine 20 Mg Tablet PO 20 mg Q12HR [facility]AN[facility] Administration Finasteride 5 mg 04/21/21 09:00 04/26/21 09:05 Finasteride 5 Mg Tablet PO 5 mg DAILY [facility] Administration Sodium Bicarbonate 75 meq/ 1,075 mls @ 50 mls/hr 04/23/21 08:25 04/26/21 11:35 Dextrose IV CONT 50 mls/hr .[id number] [facility] Administration Megestrol Acetate 600 mg 04/22/21 09:00 04/26/21 09:05 Megestrol Acetate (*Chemo) Oral Susp 40 Mg/Ml Syr PO 600 mg QAM [facility]ANNY Administration Miconazole Nitrate 1 applic 04/21/21 09:00 04/26/21 09:05 Miconazole 2% Antifungal Ointment 56 Gm TOPICAL 1 applic Q12HR [facility]AN[facility] Administration Multivitamins/Calcium 1 tablet 04/21/21 09:00 04/26/21 09:04 Therapeutic Multivitamins/Minerals Tab (*Bkc) PO 1 tablet DAILY [facility]AN[facility] Administration Ondansetron HCl 4 mg 04/20/21 16:37 Ondansetron Inj 4 Mg/2 Ml Vial IV PUSH Q4H PRN Nausea Polysaccharide Iro
[2021-04-26 18:15] LABS: Glucose Point of Care 118 mg/dl (65-105)
[2021-04-26 23:07] LABS: Glucose Point of Care 122 mg/dl (65-105)
[2021-04-27 00:18] LABS: Osmolality, Urine 875 mOsm/kg (50-1200)
[2021-04-27 06:00] VITALS: BP 137/82; PULSE 89; RESP 20; TEMP 36.3; O2SAT 98
[2021-04-27 06:43] LABS: Basophils Percent Auto 0.3 % (0.2-1.2); Eosinophils Absolute Auto 0.9 K/mm3 (0-0.3); Hemoglobin 11.8 g/dL (14.0-18.0); Immature Granulocyte Absolute 0.25 K/mm3 (0.00-0.031); Immature Granulocyte Percent A 1.9 % (0-0.5); Lymphocytes Absolute Auto 2.98 K/mm3 (0.9-3.2); Lymphocytes Percent Auto 22.9 % (18.3-44.2); Mean Corpuscular HGB Conc 30.3 g/dl (32-36); Mean Corpuscular Hemoglobin 29.4 pg (26-34); Mean Corpuscular Volume 97.3 fl (80-100); Mean Platelet Volume 12.2 fl (7.4-10.4); Monocytes Absolute Auto 0.6 K/mm3 (0.1-0.6); Monocytes Percent Auto 4.8 % (2.6-8.5); Neutrophils Absolute Auto 8.2 K/mm3 (1.3-6.7); Neutrophils Percent Auto 63.1 % (45.5-73.1); Platelet Count Result 235 k/mm3 (150-375); Red Blood Count 4.01 M/mm3 (4.6-6.20)
[2021-04-27 07:00] LABS: Anion Gap 4 mmol/L (8-16); Blood Urea Nitrogen 30 mg/dL (9-20); Calcium 8.4 mg/dL (8.4-10.2); Carbon Dioxide 22 mmol/L (22-30); Chloride 118 mmol/L (98-107); Estimated CRCL calculation 46 ml/min; Estimated Glomerular Filt Rate > 60; Glucose 90 mg/dL (75-110); Sodium 144 mmol/L (137-145)
[2021-04-27 08:06] VITALS: PULSE 84; RESP 20
[2021-04-27] MEDS: BUDESONIDE RESPULE NEB 0.5 MG/2 ML AMP 0.25 MG INHALATION ×2 (08:06→17:07)
--- NOTE | 2021-04-27 08:07 | PCRCNOTE ---
pt IV was out of his hand. He was not bleeding, may have been that way awhile. I notified nursing.
[2021-04-27 08:18] VITALS: PULSE 84; RESP 20
[2021-04-27 08:58] LABS: Glucose Point of Care 92 mg/dl (65-105)
[2021-04-27] MEDS: MEGESTROL ACETATE (*CHEMO) ORAL SUSP 40 MG/ML SYR 600 MG PO (09:23)
[2021-04-27] MEDS: FAMOTIDINE 20 MG TABLET PO ×2 (09:23→20:28)
[2021-04-27] MEDS: TAMSULOSIN HCL 0.4 MG CAPSULE PO (09:24)
[2021-04-27] MEDS: CALCIUM CARBONATE (OSCAL) 500 MG TABLET PO ×2 (09:25→16:35)
[2021-04-27] MEDS: THERAPEUTIC MULTIVITAMINS/MINERALS TAB (*BKC) 1 TABLET PO (09:25)
[2021-04-27] MEDS: FINASTERIDE 5 MG TABLET PO (09:26)
[2021-04-27] MEDS: POLYSACCHARIDE IRON COMPLEX 150 MG CAPSULE PO (09:26)
[2021-04-27] MEDS: ASCORBIC ACID 500 MG TABLET PO (09:26)
[2021-04-27 11:18] LABS: Glucose Point of Care 119 mg/dl (65-105)
[2021-04-27 14:00] VITALS: BP 120/65; PULSE 88; RESP 18; TEMP 36.3; O2SAT 98
--- NOTE | 2021-04-27 15:35 | PM.PNNEP ---
Progress Note: A&P Assessment and Plan (1) Acute hypernatremia: Code(s): E87.0 - Hyperosmolality and hypernatremia Status: Acute Assessment and Plan: due to severe free water deficit likely from poor oral fluid intake was on D5W with 75mEq of HCO3 to provide free water as well as treat acidosis -- off IVFs since yesterday follow trend of sodium levels unfortunately, I suspect this will occur again due to his dementia as evidence by his recurrent admissions for dehydration depending on family wishes, may need to consider G-tube placement versus comfort care measures.... (2) Acute kidney failure, unspecified: Code(s): N17.9 - Acute kidney failure, unspecified Status: Acute Assessment and Plan: resolving/resolved likely secondary to volume depletion creatinine improved s/p IVF hydration follow trend (3) Altered mental status: Code(s): R41.82 - Altered mental status, unspecified Status: Acute Assessment and Plan: has baseline dementia clinically better at this time follow mentation (4) Renal mass: Code(s): N28.89 - Other specified disorders of kidney and ureter Status: Acute Assessment and Plan: questionable lesion in the right kidney on ultrasound unclear how aggressive to be given his baseline comorbidities suggest follow-up as an outpatient by PCP Not much else to add... Will continue to follow intermittently. Subjective Date/time seen: 04/27/21 15:35 No new issues or problems noted; intermittent confusion noted but overall, mental status appears to be doing better in general; no apparent distress noted. Exam Narrative: Exam Narrative: General: elderly male in NAD Heart: normal S1 and S2; no rub Lungs: clear to auscultation Abdomen: soft, nontender, nondistended, positive bowel sounds Extremities: no cyanosis or clubbing; no edema Skin: no rash or nodules Objective Data Vital Signs Vital Signs: Vital Signs Temp Pulse Resp BP Pulse Ox 04/27/21 14:00 36.3 C L 88 18 120/65 98 04/27/21 08:18 84 20 04/27/21 08:06 84 20 04/27/21 06:00 36.3 C L 89 20 137/82 98 04/26/21 22:00 36.1 C L 89 20 130/87 100 04/26/21 20:20 85 20 04/26/21 20:15 86 20 Intake/Output Intake/Output: Intake & Output 04/24/21 04/25/21 04/26/21 04/27/21 23:59 23:59 23:59 23:59 Intake Total 2185 820 2174 1140 Output Total 300 Balance 6823 153 8455 1140 Meds/Results Medications: Active Medications Generic Name Dose Route Start Last Admin Trade Name Freq PRN Reason Stop Dose Admin Ascorbic Acid 500 mg 04/21/21 09:00 04/27/21 09:26 Ascorbic Acid 500 Mg Tablet PO 500 mg DAILY DANNY Administration Budesonide 0.25 mg 04/21/21 08:00 04/27/21 17:07 Budesonide Respule Neb 0.5 Mg/2 Ml Amp INHALATION 0.25 mg Q12HRT DANNY Administration Calamine 1 applic 04/20/21 23:23 04/24/21 21:00 Calamine Lotion 120 Ml Bottle TOPICAL 1 applic QAM PRN Administration Itching Calcium Carbonate 500 mg 04/21/21 09:00 04/27/21 16:35 Calcium Carbonate (Oscal) 500 Mg Tablet PO 500 mg BID DANNY Administration Diphenhydramine HCl 25 mg 04/20/21 23:23 Diphenhydramine Hcl Cap 25 Mg Capsule PO Q6H PRN allergy symptoms Famotidine 20 mg 04/21/21 09:00 04/27/21 09:23 Famotidine 20 Mg Tablet PO 20 mg Q12HR DANNY Administration Finasteride 5 mg 04/21/21 09:00 04/27/21 09:26 Finasteride 5 Mg Tablet PO 5 mg DAILY DANNY Administration Megestrol Acetate 600 mg 04/22/21 09:00 04/27/21 09:23 Megestrol Acetate (*Chemo) Oral Susp 40 Mg/Ml Syr PO 600 mg QAM DANNY Administration Miconazole Nitrate 1 applic 04/21/21 09:00 04/27/21 09:25 Miconazole 2% Antifungal Ointment 56 Gm TOPICAL 1 applic Q12HR DANNY Administration Multivitamins/Calcium 1 tablet 04/21/21 09:00 04/27/21 09:25 Therapeutic Multivitamins/Minerals Tab (*Bkc)
[2021-04-27 17:02] LABS: Glucose Point of Care 112 mg/dl (65-105)
--- NOTE | 2021-04-27 17:02 | PM.IMPN ---
Progress Note: A&P Assessment and Plan (1) Acute hypernatremia: Code(s): E87.0 - Hyperosmolality and hypernatremia Status: Acute Assessment and Plan: nephrolog. admission Na level of 174. continues to improve. on D5w with bicarbonate 75 meq. per nephrology. (2) Altered mental status: Code(s): R41.82 - Altered mental status, unspecified Status: Acute Assessment and Plan: LIKELY SECONDARY TO ABOVE CONTINUE TO MONITOR SUPPORTIVE CARE 04/24/21 15:02 THIS IS A 80-YEAR-OLD MALE WITH PAST MEDICAL HISTORY SIGNIFICANT FOR ADVANCED DEMENTIA THE PATIENT RESIDES AT A [facility] HE HAD PRIEB VIEWS ADMISSION AND DISCHARGED TO OUR HOSPITAL DUE TO RASH GENERALIZED PATIENT WAS TREATED WITH STEROIDS TOPICAL LOTION AND SENT BACK TO [facility] ON ORAL ANTIBIOTICS. PATIENT WAS SUPPOSED TO GO FOR DERMATOLOGY APPOINTMENT TODAY WHEN THE EXECUTIVE OFFICER NOTICE THE PATIENT SLUMPED OVER AND DROOLING AND INSTEAD CAME TO OUR EMERGENCY ROOM. PRELIMINARY WORKUP WAS SIGNIFICANT FOR A SODIUM OF 170. PATIENT IS UNABLE TO GIVE ANY HISTORY AT THE TIME OF MY VISIT. 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 04/21 unfortunately patient still is quite somnolent and unable to provide any review of symptom, patient is seen by Nephrology suspect patient is dehydrated and has free water deficiency patient is being gently hydrate will continue to monitor sodium, hope once patient sodium is close to normal patient to be able to provide more history, will continue to monitor once clinically stable will have a PT OT evaluate the patient. 04/22 today patient sodium is trending down today patient sodium is 161 compared 174 upon arrival, patient still quite somnolent unable to provide any review of symptom, patient is being gently hydrated, patient seen by Nephrology, once clinically stable patient will benefit from physical therapy, will continue to monitor. patient patient's sodium is trending down to 160 compared 171 upon arrival however patient CO2 is trending seen by medical radiation therapist and suspect most likely due to dilution and switch fluids D5W and added 75meq at the rate of 50 cc/hr, will continue to monitor, today patient is much more alert oriented his being fed his breakfast and states feeling better will continue present management monitor sodium and metabolic acidosis and further recommendation to follow, will have a PT OT evaluate the patient. 04/24 today patient's sodium is trending down to 155 compared 171 upon arrival however patient's CO2 is trending most likely dilution seen by nephrology and and bicarb states will continue to monitor, patient clinically and mentally has improved substantially, will have a PT OT evaluate the patient, patient will have benefit going into acute rehab as he is quite debilitated with hyponatremia. 04/25 sodium level down to 152 continues to improve with bicarb and D5 water infusion. PT OT to evaluate. Likely needs rehabilitation. Hypernatremia slowly improving. Renal dysfunction has resolved. Mild leukocytosis persist. No signs of infection. Continue to monitor mental status. Right renal mass follow-up as an outpatient basis recheck labs in a.m. 04/26 sodium level has normalized today. Admission sodium level of 174. Nephrology on board on IV fluids per Nephrology renal failure has resolved. Will get PT OT involved. Likely need rehabilitation. Mild leukocytosis persist however no signs of infection currently seen. monitor his mental status slowly improving. Does have underlying dementia Seven status 14 sodium level remains normal. More awake and alert. Nephrology on board off IV fluids for has underlying dementia will touch base with family if he is back to his normal self. Severe dehydration likely from rash and poor p.o. intake. Is from a skilled nursing likely back to skilled nursing in the mor
[2021-04-27 17:08] VITALS: PULSE 85; RESP 20
[2021-04-28 06:18] VITALS: BP 125/43; PULSE 95; RESP 20; TEMP 36.6; O2SAT 98
[2021-04-28 06:31] LABS: Basophils Percent Auto 0.3 % (0.2-1.2); Eosinophils Absolute Auto 1.1 K/mm3 (0-0.3); Eosinophils Percent Auto 6.8 % (0-4.4); Hematocrit 35.7 % (42.0-52.0); Hemoglobin 11.3 g/dL (14.0-18.0); Immature Granulocyte Absolute 0.39 K/mm3 (0.00-0.031); Immature Granulocyte Percent A 2.5 % (0-0.5); Lymphocytes Absolute Auto 3.37 K/mm3 (0.9-3.2); Lymphocytes Percent Auto 21.2 % (18.3-44.2); Mean Corpuscular HGB Conc 31.7 g/dl (32-36); Mean Corpuscular Hemoglobin 30.7 pg (26-34); Mean Platelet Volume 11.9 fl (7.4-10.4); Monocytes Absolute Auto 0.8 K/mm3 (0.1-0.6); Monocytes Percent Auto 5.1 % (2.6-8.5); Neutrophils Absolute Auto 10.2 K/mm3 (1.3-6.7); Neutrophils Percent Auto 64.1 % (45.5-73.1); Platelet Count Result 222 k/mm3 (150-375); Red Blood Count 3.68 M/mm3 (4.6-6.20); Red Cell Distribution Width 15.2 % (11.5-14.5); White Blood Count 15.9 K/mm3 (4.5-10.0)
[2021-04-28 06:45] LABS: Anion Gap 4 mmol/L (8-16); Blood Urea Nitrogen 30 mg/dL (9-20); Calcium 8.2 mg/dL (8.4-10.2); Carbon Dioxide 20 mmol/L (22-30); Chloride 116 mmol/L (98-107); Estimated CRCL calculation 57 ml/min; Estimated Glomerular Filt Rate > 60; Glucose 82 mg/dL (75-110); Potassium 3.9 mmol/L (3.4-5.0); Sodium 140 mmol/L (137-145)
[2021-04-28] MEDS: BUDESONIDE RESPULE NEB 0.5 MG/2 ML AMP 0.25 MG INHALATION (07:48)
[2021-04-28 07:50] VITALS: PULSE 104; RESP 18; O2SAT 83
[2021-04-28 08:04] VITALS: O2SAT 93
[2021-04-28 08:47] LABS: Glucose Point of Care 80 mg/dl (65-105)
[2021-04-28] MEDS: POLYSACCHARIDE IRON COMPLEX 150 MG CAPSULE PO (09:35)
[2021-04-28] MEDS: CALCIUM CARBONATE (OSCAL) 500 MG TABLET PO (09:35)
[2021-04-28] MEDS: TAMSULOSIN HCL 0.4 MG CAPSULE PO (09:35)
[2021-04-28] MEDS: MEGESTROL ACETATE (*CHEMO) ORAL SUSP 40 MG/ML SYR 600 MG PO (09:35)
[2021-04-28] MEDS: ASCORBIC ACID 500 MG TABLET PO (09:36)
[2021-04-28] MEDS: FINASTERIDE 5 MG TABLET PO (09:36)
[2021-04-28] MEDS: THERAPEUTIC MULTIVITAMINS/MINERALS TAB (*BKC) 1 TABLET PO (09:36)
[2021-04-28] MEDS: FAMOTIDINE 20 MG TABLET PO (09:36)
--- NOTE | 2021-04-28 10:47 | PM.DS ---
DS: Admitting Diagnosis Admitting Diagnosis Admitting Diagnosis: altered mental status DS: Discharge Diagnosis Discharge Diagnosis (1) Renal mass: Code(s): N28.89 - Other specified disorders of kidney and ureter Status: Acute (2) Acute kidney failure, unspecified: Code(s): N17.9 - Acute kidney failure, unspecified Status: Acute (3) Altered mental status: Code(s): R41.82 - Altered mental status, unspecified Status: Acute (4) Acute hypernatremia: Code(s): E87.0 - Hyperosmolality and hypernatremia Status: Acute (5) Rash and nonspecific skin eruption: Code(s): R21 - Rash and other nonspecific skin eruption Status: Acute (6) Dementia: Qualifiers: Dementia type: unspecified type Dementia behavioral disturbance: without behavioral disturbance Qualified Code(s): F03.90 - Unspecified dementia without behavioral disturbance Code(s): F03.90 - Unspecified dementia without behavioral disturbance Status: Acute (7) CVA (cerebral vascular accident): Code(s): I63.9 - Cerebral infarction, unspecified Status: Acute DS: Summary Hospital Course Hospital Course: THIS IS A 80-YEAR-OLD MALE WITH PAST MEDICAL HISTORY SIGNIFICANT FOR ADVANCED DEMENTIA. THE PATIENT RESIDES AT A [facility] . HE HAD Recent ADMISSION AND DISCHARGED from OUR HOSPITAL DUE TO RASH GENERALIZED PATIENT WAS TREATED WITH STEROIDS TOPICAL LOTION AND SENT BACK TO [facility] ON ORAL ANTIBIOTICS. PATIENT WAS SUPPOSED TO GO FOR DERMATOLOGY APPOINTMENT WHEN THE SLITTER AND REWINDER NOTICED THE PATIENT SLUMPED OVER AND DROOLING AND INSTEAD CAME TO OUR EMERGENCY ROOM. PRELIMINARY WORKUP WAS SIGNIFICANT FOR severe hypernatremia with A SODIUM OF 170. CT OF THE HEAD WAS SIGNIFICANT FOR EXTENSIVE OLD INFARCT AND WHITE MATTER DISEASE, his CHEST X-RAY WAS SIGNIFICANT FOR LEFT HEMIDIAPHRAGM ELEVATION. He was admitted for further evaluation and management. Nephrology was consulted. He was started on D5 water infusion to correct his free water deficit. His sodium level was monitored a daily basis and continue to improved and normalized by the time of discharge. His mental status improved with this correction and was back to baseline at the time of discharge. We suspect his underlying dementia as of cause for his severe hypernatremia and dehydration. We suspect this might occur can because of the same reason and hence a family discussion was made with his power of nutrition instructor with his brother Tristen. He wanted further information on hospice care after discussion of goals of care which was provided to him. He decides depending on how he does as he might move him to hospice care this continues to be an issue in future. He had an ultrasound of the kidney done which showed a questionable lesion and right kidney which is suggested to have a follow-up as an outpatient basis if needed /if family desired. Status at Discharge Functional status at discharge: bed bound Overall status at discharge: patient is progressing back to baseline Time Spent with Patient Time attestation: Total time spent providing and/or coordinating discharge services: 40 minutes Exam Narrative: Exam Narrative: Exam Narrative: elderly frail not in acute distress Patient is comfortable, NAD HEENT: eyes are clear and none icteric LUNGS: bilateral fair air entry with minimal rhonchi, not in acute respiratory distress HEART: RR S1S2 ABD: BS+, Soft and nontender Lower extremities: no edema no cyanosis or clubbing SKIN: nonjaundiced extensive rash everywhere which is stable Neuro: More alert and conversant back to his normal baseline DS: Data Data Completed and Pending Labs on day of discharge: Labs from last 24 hours 04/28/21 04/28/21 04/28/21 08:44 06:10 06:10 WBC 15.9 H RBC 3.68 L Hgb 11.3 L Hct 35.7 L MCV 97.0 MCH 30.7 MCHC 31.7 L RDW 15.2 H Plt Count 222 MPV 11.9 H Immature Gran % (Au
[2021-04-28 12:17] LABS: EDCOVIDSCREEN Negative (Negative)
[2021-04-28 13:28] LABS: Glucose Point of Care 90 mg/dl (65-105)
[2021-04-28 14:00] VITALS: BP 125/90; PULSE 91; RESP 16; TEMP 36.3; O2SAT 94
== END 2021-04-28 17:25 | DRG 641 ==
LOC: ANHED 16:04 → ANHIMU 23:10 → ANH3MEDSUR 04-24 22:11 → ANHIMU 05-01 18:37
PROVIDERS: Internal Medicine; Internal Medicine Nephrology; Admitting Provider Internal Medicine; Emergency Provider General Practice; PCP Internal Medicine; Visit Provider Family Medicine
DX: E87.0 Hyperosmolality and hypernatremia (principal); N17.9 Acute kidney failure, unspecified; R55 Syncope and collapse; F03.90 Unspecified dementia, unspecified severity, without behavioral disturbance, psychotic disturbance, mood disturbance, and anxiety; L03.012 Cellulitis of left finger; Z20.822 Contact with and (suspected) exposure to COVID-19; N28.89 Other specified disorders of kidney and ureter; R21 Rash and other nonspecific skin eruption; E86.0 Dehydration; J44.9 Chronic obstructive pulmonary disease, unspecified; N40.0 Benign prostatic hyperplasia without lower urinary tract symptoms; E78.5 Hyperlipidemia, unspecified; Z66 Do not resuscitate; Z86.73 Personal history of transient ischemic attack (TIA), and cerebral infarction without residual deficits
CPT/HCPCS: 36415; 36600; 70450; 71045; 76775; 80048; 80053; 80069; 81001; 82550; 82570; 82948; 83735; 83935; 84156; 84300; 84484; 85025; 85999; 87426; 93005; 94640; 97161; 99285; A9270; C9803; J3480; J7070

== ENCOUNTER 2021-05-13 09:03 | Emergency (ER) | payer MEDICARE, MEDICAID, SELFPAY ==
[2021-05-13] VITALS (11 sets, daily range): BP systolic 90–154; BP diastolic 45–103; PULSE 53–83; RESP 12–20; TEMP 36.4; O2SAT 98–100
--- NOTE | ~2021-05-13 | CT_ITS ---
EXAMINATION: CT cervical spine wo con DATE: 05/13/2021 10:12 INDICATION: Fall with head injury TECHNIQUE: Computed tomography (CT) of the cervical spine was performed without intravenous contrast. Automated exposure control and iterative reconstruction technique were employed. The dose-length pro duct was 96.07 mGy-cm. COMPARISON: 01/21/2021 FINDINGS: 10 degrees dextroscoliosis centered at the cervicothoracic junction. Straightening of the normal cerv ical lordosis. 2 mm anterolisthesis of C7 on T1. Vertebral body heights are normal. No fracture. Mode rate to severe disc height loss at C5-C6, moderate disc height loss at C4-C5. Mild disc height loss a t C3-C4. Multilevel moderate to severe bilateral facet osteoarthritis. Moderate to severe uncovertebr al osteoarthritis at C4-C5 and C5-C6. No significant central canal stenosis. Minimal to mild multilev el cervical neural foraminal stenosis. Atherosclerotic calcification is at the bilateral carotid bulb s. Cervical soft tissues are otherwise unremarkable. IMPRESSION: 1. Mild cervicothoracic dextroscoliosis with moderate cervical spondylosis. No acute osseous abnormal ity. Reviewed, dictated and finalized at location A. IMPRESSION: 1. Mild cervicothoracic dextroscoliosis with moderate cervical spondylosis. No acute osseous abnormality.
--- NOTE | ~2021-05-13 | CT_ITS ---
EXAMINATION: CT brain wo con DATE: 05/13/2021 10:12 INDICATION: Fall with head injury and laceration at the right eyebrow TECHNIQUE: Computed tomography (CT) of the head was performed without intravenous contrast. Sagittal and coronal reconstructions were performed. The mA was adjusted according to patient size. Iterative reconstruction technique was employed. The dose-length product was 605.33 mGy-cm. COMPARISON: head CT dated 04/20/2021 FINDINGS: Small anterior right frontal scalp hematoma. No calvarial fracture. Again seen are small old infarcts in the bilateral basal ganglia, bilateral thalami and in the dunia. Moderate sized region of encephal omalacia in the right temporal occipital region consistent with infarct in the vascular distribution of the right posterior cerebral artery. No acute intracranial hemorrhage, acute infarction or abnorma l extra axial fluid collection. There is additional mild to moderate scattered white matter hypoatten uation consistent with chronic small vessel ischemic disease. Ex vacuo dilation of the temporal horn of the right lateral ventricle. Ventricles are otherwise normal. There is increased prominence of th e sulci consistent with mild age-appropriate diffuse volume loss. No mass/mass effect. Changes of nicholas ateral intraocular lens replacement. The orbits, paranasal sinuses and mastoid air cells are normal. Intracranial calcified cerebral atherosclerosis is noted. IMPRESSION: 1. No fracture or acute intracranial process. 2. Old infarcts involving the bilateral basal ganglia, bilateral thalami, dunia and right temporal occ ipital region. 3. Age-related changes including mild diffuse volume loss and mild to moderate scattered white matter hypoattenuation consistent with chronic small vessel ischemic disease. Reviewed, dictated and finalized at location A. IMPRESSION: 1. No fracture or acute intracranial process. 2. Old infarcts involving the bilateral basal ganglia, bilateral thalami, dunia and right temporal occipital region. 3. Age-related changes including mild diffuse volume loss and mild to moderate scattered white matter hypoattenuation consistent with chronic small vessel isc hemic disease.
--- NOTE | ~2021-05-13 | XR_ITS ---
EXAMINATION: XR elbow LT min 3V DATE: 05/13/2021 09:47 INDICATION: Left elbow pain and abrasion post fall TECHNIQUE: Anteroposterior, two oblique and lateral views of the left elbow were obtained. COMPARISON: 01/21/2021 FINDINGS: Alignment is normal. No fracture or joint effusion. Osteoarthritis with mild nonuniform joint space n arrowing at the ulnotrochlear articulation. Small heterotopic ossicle along the lateral epicondyle co uld be related to either chronic enthesopathy or old injury. Soft tissues are unremarkable. No radiop aque foreign bodies. IMPRESSION: 1. No left elbow joint effusion, radiopaque foreign bodies or acute osseous abnormality. Reviewed, dictated and finalized at location A. IMPRESSION: 1. No left elbow joint effusion, radiopaque foreign bodies or acute osseous abn ormality.
--- NOTE | 2021-05-13 10:56 | ED.GENADULT ---
HPI - General Adult General Chief complaint: Fall Stated complaint: fall Time Seen by Provider: 05/13/21 10:11 Source: patient and RN notes reviewed Mode of arrival: ambulatory Limitations: no limitations History of Present Illness HPI narrative: Patient is a 80-year-old male who presents for evaluation of head injury patient has history of dementia presents from jail with abrasion to the right brow patient on arrival is in the room in no distress. Patient is a limited historian secondary to dementia Related Data Home Medications Medication Instructions Recorded Confirmed Xarelto 2.5 mg PO BID 03/10/21 04/20/21 budesonide 0.25 mg INHALATION BID 03/10/21 04/20/21 clopidogrel 75 mg PO DAILY 03/10/21 04/20/21 finasteride 5 mg PO DAILY 03/10/21 04/20/21 tamsulosin 0.4 mg PO DAILY 03/10/21 04/20/21 ascorbate calcium (vitamin C) 500 mg PO DAILY 04/20/21 04/20/21 calcium carbonate 500 mg PO BID 04/20/21 04/20/21 hydrocodone-acetaminophen 1 tablet PO BID PRN 04/20/21 04/20/21 megestrol 625 mg PO DAILY 04/20/21 04/20/21 mamraiys-ylb-athh-vitamin K 1 tablet PO DAILY 04/20/21 04/20/21 polysaccharide iron complex 150 mg PO DAILY 04/20/21 04/20/21 [Poly-Iron] Allergies Allergy/AdvReac Type Severity Reaction Status Date / Time No Known Allergies Allergy Verified 04/20/21 14:33 Review of Systems Review of Systems: Limited due to history of dementia [facility] Past Medical History Medical History Acute kidney failure, unspecified BPH (benign prostatic hyperplasia) COPD (chronic obstructive pulmonary disease) CVA (cerebral vascular accident) Dementia Hyperlipidemia Renal mass Surgical History Surgical History H/O inguinal hernia repair History of colonoscopy with polypectomy Family History Family History Mother Diabetes mellitus Heart disease Sibling Diabetes mellitus Heart disease Father Cancer Social History Social History Social History: Patient resides at [facility]. His brother Israel is his healthcare power of city attorney. Code status is DNR with state form on chart. Smoking status: Never smoker Second hand tobacco smoke exposure: No Alcohol intake: never Substance use: never Substance use type: does not use Gender identity (if verbalized by the patient): Male Spiritual care concerns: No Exam Narrative: GENERAL: Well-appearing, well-nourished, and in no acute distress. HEAD: Normocephalic, abrasion right brow EYES: PERRLA and EOMI. ENT: Nares clear, no rhinorrhea or epistaxis. Mucous membranes moist. NECK: Supple. No adenopathy or masses. CHEST: Clear to auscultation. No respiratory distress. No wheezes rales or rhonchi HEART: Regular rate and rhythm. No murmur heard. Normal peripheral pulses. ABDOMEN: Soft, nontender, nondistended EXTREMITIES: Normal range of motion. No edema. SKIN: Warm, dry, diffuse macular rash NEURO: No focal deficits. Alert and oriented to self and location. PSYCH: Normal mood and affect. Course Course Emergency Course: Patient evaluated for head injury will be discharged at this time for follow-up with primary care imaging of the brain and cervical spine was obtained as well as the elbow no fractures or acute abnormalities hemodynamically stable Vital Signs Vital signs: Vital Signs Pulse Rate 83 05/13/21 09:11 Respiratory Rate 17 05/13/21 09:11 Pulse Oximetry 100 05/13/21 09:11 Temperature 97.5 F L 05/13/21 09:24 Pulse Rate 72 05/13/21 11:43 Respiratory Rate 20 05/13/21 11:43 Blood Pressure 106/63 05/13/21 11:43 Pulse Oximetry 98 05/13/21 11:43 Medical Decision Making MDM Narrative Medical decision making narrative: Patient evaluated for head injury will be sen
[2021-05-13] MEDS: TETANUS,DIPHTHERIA,AC PERTUSSIS ADULT (0.5 ML) BOOSTRIX IM (11:32)
--- NOTE | 2021-05-13 12:25 | PC.NURSE ---
[facility] accepted return ETA 1300 Trip # [id number]
== END 2021-05-13 12:49 ==
PROVIDERS: Emergency Provider Emergency Medicine; PCP Internal Medicine
DX: S09.90XA Unspecified injury of head, initial encounter (principal); S00.211A Abrasion of right eyelid and periocular area, initial encounter; S50.02XA Contusion of left elbow, initial encounter; Z23 Encounter for immunization; F03.90 Unspecified dementia, unspecified severity, without behavioral disturbance, psychotic disturbance, mood disturbance, and anxiety; N40.0 Benign prostatic hyperplasia without lower urinary tract symptoms; E78.5 Hyperlipidemia, unspecified; Z86.73 Personal history of transient ischemic attack (TIA), and cerebral infarction without residual deficits; Z66 Do not resuscitate; Z86.010 Personal history of colon polyps; M47.812 Spondylosis without myelopathy or radiculopathy, cervical region; W19.XXXA Unspecified fall, initial encounter
CPT/HCPCS: 70450; 72125; 73080; 90471; 90715; 99284

== ENCOUNTER 2021-05-16 11:44 | Inpatient (IN) | payer MEDICARE, MEDICAID, SELFPAY ==
[2021-05-16] VITALS (11 sets, daily range): BP systolic 77–110; BP diastolic 37–92; PULSE 39–81; RESP 10–23; TEMP 30.8–36.5; O2SAT 96–100
--- NOTE | ~2021-05-16 | XR_ITS ---
XR chest 1V portable DATE: 05/16/2021 12:37 INDICATION: Hypotension, altered mental state, weakness TECHNIQUE: Portable supine AP view COMPARISON: 04/28/2021 portable AP chest 09/02/2015 AP and lateral chest FINDINGS: There is chronic elevation of the left leaf of the diaphragm, present on 09/06/2015. There is patchy infiltrate and/or atelectasis in the left mid and lower lung zones and to a lesser ex tent right lower lung zone. Cardiomegaly. Aortic calcification, ectasia and unfolding. Diffuse osteopenia. IMPRESSION: Left mid and bilateral lower lung infiltrate and/or atelectasis Chronic elevation of left diaphragm Reviewed, dictated and finalized at location B.
--- NOTE | ~2021-05-16 | CT_ITS ---
EXAMINATION: CT brain wo con DATE: 05/16/2021 13:42 INDICATION: Altered mental state, recent fall and head injury. TECHNIQUE: Computed tomography (CT) of the head was performed without intravenous contrast. The mA wa s adjusted according to patient size. Iterative reconstruction technique was employed. Exam dose: 60 5.33 mGy-cm total exam DLP. COMPARISON: 05/13/2021 CT brain FINDINGS: There is interval fluid accumulation over the right cerebral hemisphere since 05/13/2021 con sistent with an acute subdural hygroma. This measures up to 11.7 mm approximate maximal depth. Severe bilateral vertebral artery, calcifications, basilar artery and very prominent bilateral caroti d siphon internal carotid artery calcifications are noted. Patchy nonspecific diminished attenuation cerebral white matter, likely due to chronic small vessel ischemic changes. Chronic lacunar infarct of the central dunia. Bilateral thalamic and basal ganglionic chronic lacunar infarcts and old right occipital infarct are again noted. No interval recent cerebrovascular accident is evident. There is air within the cavernous sinus is an along the foramen for the right vertebral artery at the C2 level. Some air within the soft tissues inferior and lateral to the right temporal bone. No acute subdural or epidural hematoma is noted. No skull fracture is evident. IMPRESSION: Acute right subdural hygroma, measuring up to 11.7 mm maximal depth, new since 05/13/2021 Mild air collections in the cavernous sinuses, right vertebral neural foramen and outside the inferol ateral aspect of the temporal bone, likely benign; air in the cavernous sinuses is likely from venous lines. Reviewed, dictated and finalized at Location A. Reviewed, dictated and finalized at location B. IMPRESSION: Acute right subdural hygroma, measuring up to 11.7 mm maximal dept h, new since 05/13/2021 Mild air collections in the cavernous sinuses, right vertebral neural foramen a nd outside the inferolateral aspect of the temporal bone, likely benign; air in the cavernous sinuses is likely from venous lines.
--- NOTE | 2021-05-16 11:55 | ED.GENADULT ---
HPI - General Adult General Chief complaint: Altered Mental Status Stated complaint: increased confusion Time Seen by Provider: 05/16/21 11:46 Source: EMS and RN notes reviewed History of Present Illness HPI narrative: Patient is a 80 y/o male sent from [place] for altered mental status. He has baseline dementia, but appeared less unresponsive. Patient is unable to provide additional history due to poor mental status. He is DNR. Related Data Allergies Allergy/AdvReac Type Severity Reaction Status Date / Time No Known Allergies Allergy Verified 05/16/21 18:07 Review of Systems Review of Systems: ROS unobtainable: Yes unobtainable due to medical condition [facility] Past Medical History Medical History Acute kidney failure, unspecified BPH (benign prostatic hyperplasia) COPD (chronic obstructive pulmonary disease) CVA (cerebral vascular accident) Dementia Hyperlipidemia Renal mass Surgical History Surgical History H/O inguinal hernia repair History of colonoscopy with polypectomy Family History Family History Mother Diabetes mellitus Heart disease Sibling Diabetes mellitus Heart disease Father Cancer Social History Social History Social History: Patient resides at [facility]. His brother Israel is his healthcare power of mergers and acquisitions attorney. Code status is DNR with state form on chart. Smoking status: Never smoker Second hand tobacco smoke exposure: No Alcohol intake: never Substance use: never Substance use type: does not use Gender identity (if verbalized by the patient): Male Spiritual care concerns: No Exam Const: General: no acute distress and ill appearing Orientation/consciousness: confusion and lethargic HENMT: Head: normocephalic Ears: external ears normal General nose exam: Normal external nose present Eyes: General: appearance normal, both eyes and all related structures Conjunctivae: conjunctivae normal Neck: Neck: normal visual inspection and full ROM Chest: Chest palpation & inspection: normal inspection of the chest and no tenderness Resp: Effort & Inspection: normal respiratory effort Auscultation: clear to auscultation bilaterally Cardio: Rate: regular rate Rhythm: regular rhythm GI: GI Palp: No abdominal tenderness and Yes Soft to palpation Skin: General skin exam: normal color and turgor normal Neuro: Cognition (Neuro): abnormal cognition Extrem: General: normal to inspection, full ROM and no pedal edema Psych: Appearance: grossly normal Affect: Blunted affect present Course Reevaluation(s) Reevaluation #1: Nurse called patient's MARTÍN, who does not want any aggressive measures and does not want transfer. He wants to patient be made comfortable. Date: 05/16/21 Time: 14:43 Reevaluation #2: I called patient's MONTY Ramon, who again confirms that he does not want anything aggressive like surgery done and just wants patient made comfortable. Patient will remain in DNR status. He will consider hospice tomorrow. Date: 05/16/21 Time: 15:07 Vital Signs Vital signs: Vital Signs Temperature 30.8 C L 05/16/21 11:43 Pulse Rate 39 L 05/16/21 11:43 Respiratory Rate 10 L 05/16/21 11:43 Blood Pressure 87/55 L 05/16/21 11:43 Pulse Oximetry 99 05/16/21 11:43 Temperature 36.0 C L 05/19/21 11:05 Pulse Rate 100 05/19/21 11:05 Respiratory Rate 32 H 05/19/21 11:05 Blood Pressure 106/88 05/19/21 11:05 Pulse Oximetry 91 05/19/21 11:05 Medical Decision Making Vital Signs Vital Signs: Vital Signs Temperature 30.8 C L 05/16/21 11:43 Pulse Rate 39 L 05/16/21 11:43 Respiratory Rate 10 L 05/16/21 11:43 Blood Pressure 87/55 L 05/16/21 11:43 Pulse Oximetry 99 05/16/21 11:43 Temperature 36.0 C L 05/19
--- NOTE | 2021-05-16 12:03 | PC.NURSE ---
Pts brother and POA called and updated with patients critical condition. Confirms patients DNR status. DNR paperwork from care home also with patient chart at this time. States his is in the area and he will call her to come to patients bedside.
--- NOTE | 2021-05-16 12:06 | ECG_ITS ---
Measurements Intervals [place]ard Rate: 55 P: 60 RI: 181 QRS: 34 QRSD: 105 T: 0 QT: 226 QTc: 218 Interpretive Statements SINUS BRADYCARDIA BORDERLINE ST-T WAVE ABNORMALITY- DIFFUSE LEADS BASELINE ARTIFACT- I, II, III, AVR, V1-V2 BORDERLINE ECG Electronically Signed On 05-16-2021 13:11:18 CDT by Orville Renee D.O.
[2021-05-16 12:21] LABS: Basophils Percent Auto 0.2 % (0.2-1.2); Eosinophils Absolute Auto 0.4 K/mm3 (0-0.3); Eosinophils Percent Auto 3.9 % (0-4.4); Hematocrit 39.8 % (42.0-52.0); Immature Granulocyte Absolute 0.06 K/mm3 (0.00-0.031); Immature Granulocyte Percent A 0.6 % (0-0.5); Lymphocytes Absolute Auto 2.02 K/mm3 (0.9-3.2); Lymphocytes Percent Auto 20.1 % (18.3-44.2); Mean Corpuscular HGB Conc 30.2 g/dl (32-36); Mean Corpuscular Hemoglobin 30.6 pg (26-34); Mean Corpuscular Volume 101.5 fl (80-100); Mean Platelet Volume 12.6 fl (7.4-10.4); Monocytes Absolute Auto 0.5 K/mm3 (0.1-0.6); Monocytes Percent Auto 4.5 % (2.6-8.5); Neutrophils Absolute Auto 7.1 K/mm3 (1.3-6.7); Neutrophils Percent Auto 70.7 % (45.5-73.1); Platelet Count Result 119 k/mm3 (150-375); Red Blood Count 3.92 M/mm3 (4.6-6.20); Red Cell Distribution Width 17.8 % (11.5-14.5); White Blood Count 10.1 K/mm3 (4.5-10.0)
[2021-05-16 12:30] LABS: Lactic Acid Reflex 2.5 mmol/L (0.7-2.1)
[2021-05-16 12:33] LABS: Alanine Aminotransferase 48 U/L (4-50); Albumin Level 2.5 g/dL (3.5-5.1); Alkaline Phosphatase 51 U/L (38-126); Anion Gap 9 mmol/L (8-16); Aspartate Amino Transferase 48 U/L (17-59); Bilirubin,Total 0.6 mg/dL (0.2-1.3); Blood Urea Nitrogen 55 mg/dL (9-20); Calcium 8.6 mg/dL (8.4-10.2); Carbon Dioxide 20 mmol/L (22-30); Chloride 141 mmol/L (98-107); Estimated CRCL calculation 33 ml/min; Estimated Glomerular Filt Rate 49; Glucose 96 mg/dL (65-110); Potassium 3.6 mmol/L (3.4-5.0); Sodium 170 mmol/L (137-145)
--- NOTE | 2021-05-16 12:38 | PC.NURSE ---
Pt more alert at this time. Able to state his name and says i'm okay
[2021-05-16 14:13] LABS: Add Urine Microscopic? YES; Appearance Urine Clear (Clear); Bacteria Urine Trace /hpf; Bilirubin Urine Negative (Negative); Blood Urine Negative (Negative); Color Urine Amber (Yellow); Glucose Urine UA Negative (Negative); Ketones Urine Negative (Negative); Leukocyte Esterase Ur 2+ LEU/UL (Negative); Nitrate Urine Negative (Negative); Protein Urine 1+ mg/dL (Negative); Specific Grav Ur 1.028 (1.001-1.035); Urobilinogen Urine Negative mg/dL (<2.0); WBC Urine 0-3 /hpf
--- NOTE | 2021-05-16 14:55 | PC.NURSE ---
Spoke with cathi Wood. He wishes patient to not be transferred to [facility] for neurology and to be admitted for comfort care at this time. Dr. Jose Manuel lópez.
[2021-05-16 15:15] LABS: Reflex Lactic Acid Yes or No Add Lactic
[2021-05-16 16:08] LABS: Lactic Acid 2.3 mmol/L (0.7-2.1)
--- NOTE | 2021-05-16 17:25 | ADMGEN ---
This patient, Aguila Maria, was admitted to Medical Room 349-01. Patient/family oriented to hospital policies and general routines including ID bracelet, bed and alarms, visiting hours, pain management, procedures, bathroom and other care routines, personal items, smoking policy, room service/diet, and visiting hours. Information on how to activate the Rapid Response Team has been discussed. Patient/Family are encouraged to report perceived risks to care and to ask questions if they do not understand what they are told or what they should do.
[2021-05-16] MEDS: LORazepam INJ (*CRX) 2 MG/ML VIAL 1 MG IV PUSH (19:35)
--- NOTE | 2021-05-16 19:52 | PM.IMHP ---
H&P: HPI History of Present Illness Date/Time: 05/16/21 19:52 Chief Complaint: Low blood pressure Narrative: 80-year-old with past medical history of advanced dementia and generalized body rash who presented [facility] EMS due to increased confusion, weakness and low blood pressure. Patient is usually alert orient x2 but stopped answering questions today. The patient had been admitted to the hospital 04/21/2021- 04/28/2021 due to severe hypernatremia. The patient was rehydrated with resolution of his hypernatremia. He then present back to the ER on 05/13/[address] scan at that time demonstrated no acute process with old infarcts in the basal ganglia bilateral thalami and right temporal occipital region. When he presented back to the ER today he was noted to be hypotensive and severely hypothermic with a temperature less than 90?. Repeat CT of the head demonstrated right subdural hygroma measuring 11 mm in maximal depth. Mild air collections in the cavernous sinuses, right vertebral neural foramen and inferior lateral aspect of the temporal bone likely benign air in the cavernous sinuses due to venous lines. The patient was also noted to have severe hypernatremia again with sodium of 170 and acute renal failure with a creatinine of 1.4 and lactic acidosis. The ER staff contacted the patient's family who did not want the patient transferred to tertiary care for evacuation of intercranial bleed and wanted the patient to be admitted to the hospital as comfort measures only. reportedly the family was not ready to talk to hospice organization. The patient had received 30 mL/kilos in isotonic fluids while in the ER. The patient is on Plavix and Xarelto as outpatient. The patient had been admitted for generalized pruritic rash in February. He had been referred to dermatology in early April but in route to the capacity planner's office was when the patient had a syncopal event and was admitted to the hospital here for hypernatremia. Review of Systems Review of Systems: ROS unobtainable: Yes unobtainable due to mental status PMFSH Past Medical History Medical History Acute kidney failure, unspecified BPH (benign prostatic hyperplasia) COPD (chronic obstructive pulmonary disease) CVA (cerebral vascular accident) Dementia Hyperlipidemia Renal mass Surgical History Surgical History H/O inguinal hernia repair History of colonoscopy with polypectomy Family History Family History Mother Diabetes mellitus Heart disease Sibling Diabetes mellitus Heart disease Father Cancer Social History Social History Social History: Patient resides at [facility]. His brother Israel is his healthcare power of finance attorney. Code status is DNR with state form on chart. Smoking status: Never smoker Second hand tobacco smoke exposure: No Alcohol intake: never Substance use: never Substance use type: does not use Gender identity (if verbalized by the patient): Male Spiritual care concerns: No Meds Home Medications and Allergies Home Medications Medication Instructions Recorded Confirmed Type Xarelto 2.5 mg PO BID 03/10/21 05/16/21 History clopidogrel 75 mg PO DAILY 03/10/21 05/16/21 History finasteride 5 mg PO DAILY 03/10/21 05/16/21 History tamsulosin 0.4 mg PO DAILY 03/10/21 05/16/21 History calamine-zinc oxide 1 applic TOPICAL QAM PRN 20 Days 03/18/21 05/16/21 Rx #60 ml diphenhydramine HCl 25 mg PO Q6H PRN 5 Days #20 cap 03/18/21 05/16/21 Rx famotidine 20 mg PO Q12HR 30 Days #60 tablet 03/18/21 05/16/21 Rx ascorbate calcium (vitamin C) 1,000 mg PO DAILY 04/20/21 05/16/21 History calcium carbonate 500 mg PO BID 04/20/21 05/16/21 History hydroc
[2021-05-17] MEDS: CALAMINE LOTION 120 ML BOTTLE 1 APPLIC TOPICAL (05:39)
[2021-05-17 08:21] VITALS: RESP 20; O2SAT 100
[2021-05-17 10:57] VITALS: BP 107/61; PULSE 80; RESP 20; TEMP 35.9; O2SAT 96
--- NOTE | 2021-05-17 13:51 | PM.IMPN ---
Progress Note: A&P Assessment and Plan (1) Altered mental status: Qualifiers: Altered mental status type: delirium Qualified Code(s): R41.0 - Disorientation, unspecified Code(s): R41.82 - Altered mental status, unspecified Status: Acute Assessment and Plan: The patient has severe hypernatremia likely secondary to decreased oral intake with his advanced dementia. This is the patient's 2nd admission for severe hyponatremia this month. The patient received 3 L of isotonic fluids in the ER. The patients family decided to make him comfort care given the setting of the patient's severe hypothermia , new 11 mm subdural hygroma and hypotension and recurrent hypernatremia. Patient will be provided with PRN pain medications and anxiety medications. The patient does not seem to be in any distress at this time. He has Thomson catheter for comfort. Continue monitoring and medications prn. (2) Subdural hygroma: Code(s): G96.08 - Other cranial cerebrospinal fluid leak Status: Acute (3) Acute hypernatremia: Code(s): E87.0 - Hyperosmolality and hypernatremia Status: Acute (4) Acute kidney failure, unspecified: Qualifiers: Acute renal failure type: unspecified Qualified Code(s): N17.9 - Acute kidney failure, unspecified Code(s): N17.9 - Acute kidney failure, unspecified Status: Acute (5) Hypothermia: Qualifiers: Encounter type: initial encounter Qualified Code(s): T68.XXXA - Hypothermia, initial encounter Code(s): T68.XXXA - Hypothermia, initial encounter Status: Acute Time Spent With Patient Time with patient: 25 - 35 minutes Subjective Date/time seen: 05/17/21 13:51 Interval history: Date of service 05/17/21: Unable to obtain history due to mental status Review of Systems Review of Systems: ROS unobtainable: Yes unobtainable due to mental status Exam Narrative: General: 80-year-old man laying flat in bed sleeping, with his eyes closed, mouth open, sounds of increased secrections in the back of his throat. Intermittently opening his left eye slightly and moving around in bed. Appears otherwise comfortable and in no acute distress. Skin: No jaundice or cyanosis. Respiratory: Shallow breath sounds bilaterally, no significant wheezing or crackles auscultated. No bony chest wall tenderness. Cardiovascular: The heart has a regular rate and rhythm without murmur. Lower extremities: No lower extremity edema. Gastrointestinal: The abdomen is soft, nontender and nondistended . Psychiatric: Sleeping. Neurologic: Not alert or oriented. Intermittently moving slightly in bed. Objective Data Vital Signs Vital Signs: Vital Signs - 24 hr 05/16/21 14:20 05/16/21 15:28 05/16/21 16:43 Temperature 87.9 F L 89.4 F L 90.8 F L Pulse Rate 64 60 62 Respiratory Rate 18 11 L 14 Blood Pressure 110/92 H 92/57 L 102/88 Pulse Oximetry 100 96 100 05/16/21 17:13 05/16/21 18:00 05/16/21 18:26 Temperature 91.2 F L 96.5 F L Pulse Rate 67 72 Respiratory Rate 15 20 Blood Pressure 79/57 L 77/37 L Pulse Oximetry 100 100 05/16/21 19:52 05/16/21 20:44 05/17/21 08:21 Temperature 97.7 F 97.4 F L Pulse Rate 81 Respiratory Rate 20 20 Blood Pressure 78/38 L Pulse Oximetry 100 100 05/17/21 10:57 Temperature 96.6 F L Pulse Rate 80 Respiratory Rate 20 Blood Pressure 107/61 Pulse Oximetry 96 Intake/Output Intake/Output: Intake & Output 05/14/21 05/15/21 05/16/21 05/17/21 23:59 23:59 23:59 23:59 Intake Total 2024 0 Output Total 175 50 Balance 1850 -50 Meds/Results Medications: Active Medications Generic Name Dose Route Start Last Admin Trade Name Freq PRN Reason Stop Dose Admin Calamine 1 applic 05/16/21 19:51 05/17/21 05:39 Calamine Lotion 120 Ml Bottle TOPICAL 1 applic QAM PRN Administration Itching L
[2021-05-17 20:12] VITALS: BP 115/48; PULSE 90; RESP 16; TEMP 33.5; O2SAT 95
[2021-05-17] MEDS: LORazepam INJ (*CRX) 2 MG/ML VIAL 1 MG IV PUSH (21:07)
[2021-05-18 08:20] VITALS: RESP 16; O2SAT 95
[2021-05-18] MEDS: CALAMINE LOTION 120 ML BOTTLE 1 APPLIC TOPICAL (10:26)
[2021-05-18] MEDS: SCOPOLAMINE 1.5 MG PATCH TRANSDERM (10:27)
[2021-05-18 11:27] VITALS: BP 89/48; PULSE 70; RESP 24; TEMP 35.3; O2SAT 90
[2021-05-18] MEDS: LORazepam INJ (*CRX) 2 MG/ML VIAL 1 MG IV PUSH ×2 (11:57→20:55)
--- NOTE | 2021-05-18 16:53 | PM.IMPN ---
Progress Note: A&P Assessment and Plan (1) Altered mental status: Qualifiers: Altered mental status type: delirium Qualified Code(s): R41.0 - Disorientation, unspecified Code(s): R41.82 - Altered mental status, unspecified Status: Acute Assessment and Plan: The patient has severe hypernatremia likely secondary to decreased oral intake with his advanced dementia. This is the patient's 2nd admission for severe hyponatremia this month. The patient received 3 L of isotonic fluids in the ER. The patients family decided to make him comfort care and they spoke with Hospice today, plans to discharge to care home tomorrow with hospice care in the setting of the patient's severe hypothermia , new 11 mm subdural hygroma and hypotension and recurrent hypernatremia. Patient will be provided with PRN pain medications and anxiety medications. The patient does not seem to be in any distress at this time. He has Thomson catheter for comfort. Continue monitoring and medications prn. (2) Subdural hygroma: Code(s): G96.08 - Other cranial cerebrospinal fluid leak Status: Acute (3) Acute hypernatremia: Code(s): E87.0 - Hyperosmolality and hypernatremia Status: Acute (4) Acute kidney failure, unspecified: Qualifiers: Acute renal failure type: unspecified Qualified Code(s): N17.9 - Acute kidney failure, unspecified Code(s): N17.9 - Acute kidney failure, unspecified Status: Acute (5) Hypothermia: Qualifiers: Encounter type: initial encounter Qualified Code(s): T68.XXXA - Hypothermia, initial encounter Code(s): T68.XXXA - Hypothermia, initial encounter Status: Acute Subjective Date/time seen: 05/18/21 16:53 Interval history: Date of service 05/18/21: Unable to obtain history due to mental status. Sleeping Review of Systems Review of Systems: ROS unobtainable: Yes unobtainable due to medical condition Exam Narrative: General: 80-year-old man laying flat in bed sleeping, with his eyes closed, mouth open, snoring, sounds of increased secrections in the back of his throat. Appears otherwise comfortable and in no acute distress. Skin: No jaundice or cyanosis. Respiratory: Slightly tachypneic, breath sounds clear bilaterally, no significant wheezing or crackles auscultated. No bony chest wall tenderness. Cardiovascular: The heart has a regular rate and rhythm without murmur. Lower extremities: No lower extremity edema. Gastrointestinal: The abdomen is soft, nontender and nondistended . Psychiatric: Sleeping. Neurologic: Not alert or oriented. Intermittently moving slightly in bed. Objective Data Vital Signs Vital Signs: Vital Signs - 24 hr 05/17/21 20:12 05/18/21 08:20 05/18/21 11:27 Temperature 92.3 F L 95.6 F L Pulse Rate 90 70 Respiratory Rate 16 16 24 H Blood Pressure 115/48 L 89/48 L Pulse Oximetry 95 95 90 Intake/Output Intake/Output: Intake & Output 05/15/21 05/16/21 05/17/21 05/18/21 23:59 23:59 23:59 23:59 Intake Total 5 0 0 Output Total 175 350 100 Balance 1850 -350 -100 Meds/Results Medications: Active Medications Generic Name Dose Route Start Last Admin Trade Name Freq PRN Reason Stop Dose Admin Calamine 1 applic 05/16/21 19:51 05/18/21 10:26 Calamine Lotion 120 Ml Bottle TOPICAL 1 applic QAM PRN Administration Itching Lorazepam 1 mg 05/16/21 19:52 05/18/21 11:57 Lorazepam Inj (*Crx) 2 Mg/Ml Vial IV PUSH 1 mg Q2H PRN Administration Anxiety Morphine Sulfate 2 mg 05/16/21 15:32 Morphine Sulfate (*Crx) 4 Mg/Ml Inj IV PUSH Q2H PRN Pain Rated 7-10 Scopolamine 1.5 mg 05/18/21 10:05 05/18/21 10:27 Scopolamine 1.5 Mg Patch TRANSDERM 1.5 mg Q72HR DANNY Administration Radiology Results: ITS Impressions Chest X-Ray 05/16/21 12:45 IMPRESSION: Left
[2021-05-18 20:44] VITALS: BP 103/58; PULSE 64; RESP 24; TEMP 35.7; O2SAT 93
[2021-05-18 23:56] VITALS: O2SAT 94
--- NOTE | 2021-05-19 10:36 | PM.DS ---
DS: Admitting Diagnosis Admitting Diagnosis AMS DS: Discharge Diagnosis Discharge Diagnosis (1) Altered mental status: Qualifiers: Altered mental status type: delirium Qualified Code(s): R41.0 - Disorientation, unspecified Code(s): R41.82 - Altered mental status, unspecified Status: Acute Assessment and Plan: The patient is a 80 year old man with a history of severe dementia, who presented to the ER with increased confusion, weakness and low blood pressure. On arrival the patients vitals showed he was hypotensive 87/55, bradycardic at 39 bpm, respiratory rate of 10, hypothermic at 87.4F and normal O2 on room air. labs showed slight leukocytosis with normal neutrophil count, macrocytic anemia with Hgb 12. Hypernatremia at 170, ERNESTINA with Cr 1.4, BUN 55, elevated lactic acid at 2.3, suggesting dehydration secondary to decreased oral intake with his advanced dementia. This is the patient's 2nd admission for severe hyponatremia in 1 month. The patient received 3 L of isotonic fluids in the ER and the provider who accepted admission discussed with the patients family who lives out of town his clinical condition and his family decided to make him comfort care. He was started on PRN Ativan and Morphine. He has been otherwise stable the last few days and further discussion with the family to persue Hospice care. [facility] talked with the patients family and it was decided he would be [facility]. The patient is currently stable for discharge at this time on hospice. Continue with Thomson catheter for comfort. (2) Subdural hygroma: Code(s): G96.08 - Other cranial cerebrospinal fluid leak Status: Acute (3) Acute hypernatremia: Code(s): E87.0 - Hyperosmolality and hypernatremia Status: Acute (4) Acute kidney failure, unspecified: Qualifiers: Acute renal failure type: unspecified Qualified Code(s): N17.9 - Acute kidney failure, unspecified Code(s): N17.9 - Acute kidney failure, unspecified Status: Acute (5) Hypothermia: Qualifiers: Encounter type: initial encounter Qualified Code(s): T68.XXXA - Hypothermia, initial encounter Code(s): T68.XXXA - Hypothermia, initial encounter Status: Acute DS: Summary Hospital Course Hospital Course: AMS Status at Discharge Cognitive/behavioral status at discharge: Stable, improved. Time Spent with Patient Time attestation: Total time spent providing and/or coordinating discharge services: 38 Time spent: Greater than 30 minutes Exam Narrative: General: 80-year-old man laying flat in bed sleeping, with his eyes closed, mouth open, snoring, sounds of increased secretions in the back of his throat. Appears otherwise comfortable and in no acute distress. Skin: No jaundice or cyanosis. Respiratory: Slightly tachypneic, breath sounds clear bilaterally, no significant wheezing or crackles auscultated. No bony chest wall tenderness. Cardiovascular: The heart has a regular rate and rhythm without murmur. Lower extremities: No lower extremity edema. Gastrointestinal: The abdomen is soft, nontender and nondistended . Psychiatric: Sleeping. Neurologic: Not alert or oriented. Intermittently moving slightly in bed. DS: Data Data Completed and Pending Labs on day of discharge: Preliminary micro results at discharge 05/16/21 13:05 Blood Culture - Preliminary Blood 05/16/21 12:07 Blood Culture - Preliminary Blood Discharge Plan Discharge Attending physician on discharge: Kushal Vasquez Discharging Clinician: Karen Reese Anticipated Discharge Date/Time: 05/19/21 10:35 Patient Disposition: Hospice - Medical Facility Activity: as tolerated Diet: as tolerated [facility] Instructions[facility] Patient Instructions: Pain Management (DC), Comf
[2021-05-19] MEDS: LORazepam INJ (*CRX) 2 MG/ML VIAL 1 MG IV PUSH (10:40)
[2021-05-19 11:05] VITALS: BP 106/88; PULSE 100; RESP 32; TEMP 36; O2SAT 91
[2021-05-19 12:02] LABS: EDCOVIDSCREEN Negative (Negative)
== END 2021-05-19 15:05 | disposition hospice, inpatient (51) | DRG 641 ==
LOC: ANHED 15:30 → ANH3MED 18:45
PROVIDERS: Admitting Provider Internal Medicine; Emergency Provider Emergency Medicine; PCP Internal Medicine; Visit Provider Physician Assistant
DX: E87.0 Hyperosmolality and hypernatremia (principal); G96.08 Other cranial cerebrospinal fluid leak; N17.9 Acute kidney failure, unspecified; T68.XXXA Hypothermia, initial encounter; Z20.822 Contact with and (suspected) exposure to COVID-19; F03.90 Unspecified dementia, unspecified severity, without behavioral disturbance, psychotic disturbance, mood disturbance, and anxiety; N40.0 Benign prostatic hyperplasia without lower urinary tract symptoms; J44.9 Chronic obstructive pulmonary disease, unspecified; E78.5 Hyperlipidemia, unspecified; R41.0 Disorientation, unspecified; Z66 Do not resuscitate; Z79.01 Long term (current) use of anticoagulants; Z79.899 Other long term (current) drug therapy; Z86.73 Personal history of transient ischemic attack (TIA), and cerebral infarction without residual deficits
CPT/HCPCS: 36415; 70450; 71045; 72125; 73080; 80053; 81001; 83605; 85025; 87040; 87426; 90471; 90715; 93005; 96360; 96361; 99285; A9270; C9803; J2060; J7120